=== PATIENT | female | born 1955 | race African-American/Black ===

== ENCOUNTER 2017-06-01 15:05 | Emergency (ER) | payer MEDICAID ==
[~2017-06-01 15:05] MED LIST: APIX5TAB PO; BUME1TAB PO; CALC0.25 PO; CARV25TA PO; CHOL1CAP13 PO; CLON0.1T PO; CLON0.2T PO; FURO40TA PO; HYDR-3799 PO; ISOS30TA3 PO; LANTINJ SQ; LEVO112T2 PO; LIDO1PAD52 TOPICAL; NITR1SUB3 SL; NOVOINJ3 SQ; PRAV80TA2 PO; RENATAB6 PO
[2017-06-01 15:07] VITALS: BP 211/100; PULSE 75; RESP 20; TEMP 98.6; O2SAT 96
--- NOTE | 2017-06-01 15:19 | PD ---
Physical Exam Time Seen by Provider: 15:18 Narrative 61 y/o female here for evaluation of nausea, vomiting, fatigue for 3 days. She has also had a pruritic rash on the lower back for one day. Vital signs reviewed. Seen at triage desk. Awaiting bed placement. Data Data Last Documented VS Vital Signs Date Time Temp Pulse Resp B/P (MAP) Pulse Ox O2 Delivery O2 Flow Rate FiO2 06/01/17 15:07 98.6 75 20 211/100 (137) 96 Room Air [facility] Medical Record Reviewed: Yes Supervised Visit with BETSY: Niall Myers Jun 01, 2017 15:19
[2017-06-01 16:42] VITALS: RESP 16; O2SAT 98
[2017-06-01] MEDS ORDERED: SODIUM CHLORIDE 0.9% FLUSH 10 ML FLUSH IV FLUSH PRN (16:45)
--- NOTE | 2017-06-01 16:50 | PD ---
HPI Chief Complaint: GI Complaint Time Seen by Provider: 16:36 Travel History International Travel<30 days: No Contact w/Intl Traveler<30days: No Traveled to known affect area: No History of Present Illness HPI 61-year-old female with history of previous stroke, hypertension, diabetes, presents to the ER today for 3 days history of feeling more tired than usual, nausea vomiting, and lower back pains, has noticed a rash to her right flank area going down her right leg. She states that she thinks the rash is making her feel worse. She denies any diarrhea or any other symptoms. Modifying Factors: None Associated Signs & Symptoms: Fatigue, nausea, lower back discomfort, right flank rash Risk Factors: None PFSH Past Medical History Arthritis: Yes Cardiac Catheterization: Yes Cardiovascular Problems: Yes (HTN) Diabetes: Yes Patient Takes Glucophage: No Diminished Hearing: No Hypertension: Yes Past Surgical History Section: Yes Genitourinary Surgery: Yes Social History Alcohol Use: No Tobacco Use: No Substance Use: No Allergies-Medications (Allergen,Severity, Reaction): Coded Allergies: ibuprofen (Verified Allergy, Severe, 06/01/17) aspirin (Verified Allergy, Unknown, 06/01/17) Reported Meds & Prescriptions Reported Meds & Active Scripts Active Bumetanide 1 Mg Tab 1 Mg PO BID Clonidine (Clonidine HCl) 0.2 Mg Tab 0.2 Mg PO BID Reported Calcitriol 0.25 Mcg Cap 0.25 Mcg PO DAILY Vitamin D3 Maximum Strength (Cholecalciferol) 5,000 Unit Cap 5,000 Units PO DAILY Isosorbide Mononitrate ER (Isosorbide Mononitrate) 30 Mg Capri 30 Mg PO DAILY Sherron-Joe Rx (B-Complex W/ C & Folic Acid) 1 Tab 1 Tab PO DAILY Hydralazine HCl 25 Mg Tablet 25 Mg PO BID Nitroglycerin SL (Nitroglycerin) 0.4 Mg Subl 0.4 Mg SL DIRECTED PRN ONE TABLET UNDER THE TONGUE NEEDED FOR CHEST PAIN, MAY REPEAT EVERY FIVE MINUTES FOR A TOTAL OF 3 DOSES OR CALL 911 IF NO RELIEF Bumetanide 1 Mg Tab 1 Mg PO DAILY Furosemide 40 Mg Tab 40 Mg PO DAILY Lidocaine Patch 12 HR (Lidocaine) 5 % Patch 1 Patch TOPICAL DAILY Remove patch after 12 hours Novolog Flexpen Inj (Insulin Aspart) 300 Unit/3 Ml Pen 1 Units SQ Pravastatin 80 Mg Tab 80 Mg PO DAILY Levothyroxine (Levothyroxine Sodium) 112 Mcg Tab 112 Mcg PO DAILY Eliquis (Apixaban) 5 Mg Tab 5 Mg PO BID Carvedilol 25 Mg Tab 12.5 Mg PO TID Clonidine (Clonidine HCl) 0.1 Mg Tab 0.1 Mg PO BID Lantus Solostar Pen Inj (Insulin Glargine) 300 Unit/3 Ml Pen 15 Units SQ HS Review of Systems Except as stated in HPI: all other systems reviewed are Neg Physical Exam Narrative GENERAL: Well-developed elderly female patient currently in mild distress. Awake and oriented 3. SKIN: Focused skin assessment warm/dry. There is a notable erythematous vesicular rash to the right flank area around the dermatomal area of L2 going down the right anterior thigh. HEAD: Atraumatic. Normocephalic. EYES: Pupils equal and round. No scleral icterus. No injection or drainage. ENT: No nasal bleeding or discharge. Mucous membranes pink and moist. NECK: Trachea midline. No JVD. CARDIOVASCULAR: Regular rate and rhythm. No murmur appreciated. RESPIRATORY: No accessory muscle use. Clear to auscultation. Breath sounds equal bilaterally. GASTROINTESTINAL: Abdomen soft, non-tender, nondistended. Hepatic and splenic margins not palpable. MUSCULOSKELETAL: No obvious deformities. No clubbing. No cyanosis. No edema. NEUROLOGICAL: Awake and alert. No obvious cranial nerve deficits. Motor grossly within normal limits. Normal speech. PSYCHIATRIC: Appropriate mood and affect; insight and judgment normal. Data Data Last Documented VS Vital Signs Date Time Temp Pulse Resp B/P (MAP) Pulse Ox O2 Delivery O2 Flow Rate FiO2 06/01/17 16:42 16 98 Room Air 06/01/17 15:07 98.6 75 Orders Orders Complete Blood Count With Diff (06/01/17 16:36) Comprehensive Metabolic Panel (06/01/17 16:36) Lipase (06/01/17 16:36) Urinalysis - C+S If Indicated (06/01/17 16:36) Iv Access Insert/Monitor (06/01/17 16:36) Ecg Monitoring (06/01/17 16:36) Oximetry (06/01/17 16:36) Sodium Chloride 0.9% Flush (Ns Flush) (06/01/17 16:45) Chest, Single Ap (06/01/17 17:48) Furosemide Inj (Lasix Inj) (06/01/17 18:45) Clonidine (Catapres) (06/01/17 19:00) Acetamin-Hydrocod 325-5 Mg ([place] 5-325 (06/01/17 19:00) Labs Laboratory Tests Test 06/01/17 16:50 White Blood Count 4.8 TH/MM3 Red Blood Count 3.46 MIL/MM3 Hemoglobin 10.2 GM/DL Hematocrit 31.7 % Mean Corpuscular Volume 91.6 FL Mean Corpuscular Hemoglobin 29.5 PG Mean Corpuscular Hemoglobin Concent 32.2 % Red Cell Distribution Width 14.6 % Platelet Count 126 TH/MM3 Mean Platelet Volume 10.6 FL Neutrophils (%) (Auto) 70.2 % Lymphocytes (%) (Auto) 14.5 % Monocytes (%) (Auto) 12.3 % Eosinophils (%) (Auto) 2.2 % Basophils (%) (Auto) 0.8 % Neutrophils # (Auto) 3.4 TH/MM3 Lymphocytes # (Auto) 0.7 TH/MM3 Monocytes # (Auto) 0.6 TH/MM3 Eosinophils # (Auto) 0.1 TH/MM3 Basophils # (Auto) 0.0 TH/MM3 CBC Comment DIFF FINAL Differential Comment Blood Urea Nitrogen 35 MG/DL Creatinine 2.90 MG/DL Random Glucose 144 MG/DL Total Protein 7.2 GM/DL Albumin 3.3 GM/DL Calcium Level 9.0 MG/DL Alkaline Phosphatase 87 U/L Aspartate Amino Transf (AST/SGOT) 27 U/L Alanine Aminotransferase (ALT/SGPT) 22 U/L Total Bilirubin 0.5 MG/DL Sodium Level 138 MEQ/L Potassium Level 4.0 MEQ/L Chloride Level 104 MEQ/L Carbon Dioxide Level 28.0 MEQ/L Anion Gap 6 MEQ/L Estimat Glomerular Filtration Rate 20 ML/MIN Lipase 133 U/L MDM Medical Decision Making Medical Screen Exam Complete: Yes Emergency Medical Condition: Yes Medical Record Reviewed: Yes Interpretation(s) Laboratory Tests Test 06/01/17 16:50 Red Blood Count 3.46 MIL/MM3 (4.00-5.30) Hemoglobin 10.2 GM/DL (11.6-15.3) Hematocrit 31.7 % (35.0-46.0) Platelet Count 126 TH/MM3 (150-450) Neutrophils (%) (Auto) 70.2 % (16.0-70.0) Monocytes (%) (Auto) 12.3 % (0.0-8.0) Lymphocytes # (Auto) 0.7 TH/MM3 (1.0-4.8) Blood Urea Nitrogen 35 MG/DL (7-18) Creatinine 2.90 MG/DL (0.50-1.00) Random Glucose 144 MG/DL (74-106) Albumin 3.3 GM/DL (3.4-5.0) Estimat Glomerular Filtration Rate 20 ML/MIN (>89) Last 24 hours Impressions Chest X-Ray 06/01/17 6698 Signed Impressions: Service Date/Time: Thursday, June 01, 2017 17:52 - CONCLUSION: Slight failure. Jong Corbett MD Differential Diagnosis Fatigue, nausea, vomiting, lower back discomfort, rash: Viral syndrome versus zoster versus dehydration versus metabolic issues Narrative Course Exam reveals rash that appears to be zoster. Symptoms are likely secondary to zoster. Her blood pressure is quite high the patient is due for her blood pressure medications and patient was given clonidine time. She. She is also due for Bumex she is due for her diuretics and Lasix was also given in the ER. My plan would be to release her once her blood pressure medications have taken effect and treat her for her zoster. Follow-up with primary care doctor. Return for any worsening in symptoms as necessary. The plan has been discussed with her and she states understanding. Diagnosis Primary Impression: Shingles Additional Impressions: Chronic hypertension CHF (congestive heart failure) Med/Other Pt SpecificInfo: Prescription(s) given Scripts Hydrocodone-Acetaminophen (Lortab) 5-325 Mg Tab 1 TAB PO Q6H Y for PAIN, #15 TAB 0 Refills Prov: Henny Davies MD 06/01/17 Acyclovir (Acyclovir) 800 Mg Tab 800 MG PO 5 TIMES A DAY for Mgmt Viral Infection for 7 Days, TAB 0 Refills Prov: Henny Davies MD 06/01/17 Disposition: 01 DISCHARGE HOME Condition: Stable Henny Davies MD Jun 01, 2017 16:50
[2017-06-01 17:16] LABS: AUTOMATED NEUTROPHIL # 3.4 TH/MM3 (1.8-7.7); BASOPHIL % 0.8 % (0.0-2.0); EOSINOPHIL # 0.1 TH/MM3 (0-0.4); EOSINOPHIL % 2.2 % (0.0-4.0); HEMATOCRIT 31.7 % (35.0-46.0); HEMO FLAGS DIFF FINAL; LYMPH % 14.5 % (9.0-44.0); LYMPHOCYTE # 0.7 TH/MM3 (1.0-4.8); MEAN CELL VOLUME 91.6 FL (80.0-100.0); MEAN CORPUSCULAR HEMOGLOBIN 29.5 PG (27.0-34.0); MEAN CORPUSCULAR HGB CONC 32.2 % (32.0-36.0); MONO % 12.3 % (0.0-8.0); NEUT % 70.2 % (16.0-70.0); PLATELET COUNT 126 TH/MM3 (150-450); RED BLOOD COUNT 3.46 MIL/MM3 (4.00-5.30); RED CELL DISTRIBUTION WIDTH 14.6 % (11.6-17.2); WHITE BLOOD COUNT 4.8 TH/MM3 (4.0-11.0)
[2017-06-01 17:36] LABS: ALKALINE PHOSPHATASE 87 U/L (45-117); TOTAL BILIRUBIN ADULT 0.5 MG/DL (0.2-1.0)
[2017-06-01 17:42] LABS: ALT (GPT) 22 U/L (10-53); ANION GAP 6 MEQ/L (5-15); AST (GOT) 27 U/L (15-37); BLOOD UREA NITROGEN 35 MG/DL (7-18); CHLORIDE 104 MEQ/L (98-107); GLOMERULAR FILTRATION RATE 20 ML/MIN (>89); SODIUM (NA) 138 MEQ/L (136-145)
--- NOTE | 2017-06-01 18:17 | RADRPT ---
EXAM DATE/TIME: 06/01/2017 17:52 [facility] COMPARISON: No previous studies available for comparison. INDICATIONS : Cough and chest pain. MEDICAL HISTORY : Myocardial infarction. Stroke. Hypertension. Diabetes mellitus type II. Cardiovascular disease. SURGICAL HISTORY : None. ENCOUNTER: Initial ACUITY: 2 days PAIN SCORE: 9/10 LOCATION: Bilateral chest FINDINGS: Moderate cardiomegaly again noted. There is vascular congestion/trace edema. Tiny bilateral pleural e ffusions are possible. No large effusion seen. No pneumothorax. CONCLUSION: Slight failure. Jong Corbett MD on June 01, 2017 at 18:15 Board Certified Radiologist. This report was verified electronically.
[2017-06-01] MEDS ORDERED: FUROSEMIDE 40 MG/4 ML VIAL IV PUSH ONE (18:45)
[2017-06-01] MEDS ORDERED: cloNIDine HCL 0.2 MG TAB PO ONE (19:00)
[2017-06-01] MEDS ORDERED: ACETAMINOPHEN/HYDROcodone 325 MG/5 MG TAB PO ONE (19:00)
[2017-06-01] MEDS ORDERED: HYDR-3533 PO (19:10)
[2017-06-01] MEDS ORDERED: ACYC800T PO (19:10)
[2017-06-01 21:10] VITALS: BP 190/80
== END 2017-06-01 21:11 | disposition home or self-care (01) ==
LOC: NEPE 15:05
DX: B02.9 Zoster without complications (principal); I50.9 Heart failure, unspecified; I10 Essential (primary) hypertension; E11.9 Type 2 diabetes mellitus without complications
CPT/HCPCS: 71010; 80053; 83690; 85025; 96374; 99284; J1940

== ENCOUNTER 2017-07-02 01:36 | Inpatient (IN) | payer MEDICAID ==
[2017-07-02] VITALS (20 sets, daily range): BP systolic 98–176; BP diastolic 54–87; PULSE 58–79; RESP 11–24; TEMP 97.5–98.4; O2SAT 97–100
[~2017-07-02] VITALS: Ht 167.6 cm; Wt 78.4 kg
[~2017-07-02 01:36] MED LIST changes: +HYDR-3533 PO
[2017-07-02] MEDS ORDERED: MAGNESIUM HYDROXIDE SUSP 30 ML CUP PO PRN (04:30)
[2017-07-02] MEDS ORDERED: SENNOSIDES 8.6 MG TAB PO PRN (04:30)
[2017-07-02] MEDS ORDERED: ZOLPIDEM TARTRATE 5 MG TAB PO PRN (04:30)
[2017-07-02] MEDS ORDERED: MISCELLANEOUS NURSING INFORMATION XX SCH (04:30)
[2017-07-02] MEDS ORDERED: CHLORHEXIDINE GLUCONATE 2 % 1 PACK (2 CLOTHS) TOP PRN (04:30)
[2017-07-02] MEDS ORDERED: ONDANSETRON HCL 4 MG/2 ML VIAL IV PUSH PRN (04:30)
[2017-07-02] MEDS ORDERED: BISACODYL 10 MG SUPP RECTAL PRN (04:30)
[2017-07-02] MEDS ORDERED: RESP: ALBUTEROL 2.5 MG/IPRATROPIUM 0.5 MG NEB (PRN) INH (04:30)
[2017-07-02] MEDS ORDERED: SODIUM CHLORIDE 0.9% FLUSH 10 ML FLUSH IV FLUSH PRN (04:30)
[2017-07-02] MEDS ORDERED: DEXTROSE 50% IN WATER 50 ML VIAL(D50) IV PUSH PRN (04:30)
[2017-07-02] MEDS ORDERED: LACTULOSE SYRUP 20 GM/30 ML CUP PO PRN (04:30)
[2017-07-02] MEDS ORDERED: ACETAMINOPHEN 325 MG TAB PO PRN (04:30)
[2017-07-02] MEDS ORDERED: GLUCAGON 1 MG/ML VIAL OTHER PRN (04:30)
--- NOTE | 2017-07-02 04:35 | HHI.HP ---
[facility] Service Critical Care Medicine Primary Care Physician Non-Staff Admission Diagnosis Diagnosis: Travel History International Travel<30 Days: No Contact w/Intl Traveler <30 Da: No Traveled to Known Affected Are: No History of Present Illness 62 year-old female history of hypertension, CAD, diabetes, kidney disease, DVTs , CHF presents for evaluation of worsening shortness of breath over the last 4 days. She feels significantly short of breath in with a minimum activities. She she has also been unable to lie flat. Her ankles have become more swollen. 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 Per the patient Renal function has been "doing well." She denies any fever or chills. She denies any recent illnesses. Denies any nausea or vomiting. Patient has no pain. She has no other symptoms to report. Substance Use: No Review of Systems Constitutional: DENIES: Diaphoretic episodes, Fatigue, Fever, Weight gain, Weight loss, Chills, Dizziness, Change in appetite, Night Sweats Endocrine: DENIES: Abnorml menstrual pattern, Heat/cold intolerance, Polydipsia , Polyuria, Polyphagia Eyes: DENIES: Blurred vision, Diplopia, Eye inflammation, Eye pain, Vision loss , Photosensitivity, Double Vision Ears, nose, mouth, throat: DENIES: Tinnitus, Hearing loss, Vertigo, Nasal discharge, Oral lesions, Throat pain, Hoarseness, Ear Pain, Running Nose, Epistaxis, Sinus Pain, Toothache, Odynophagia Respiratory: COMPLAINS OF: Shortness of breath, DENIES: Apneas, Cough, Snoring , Wheezing, Hemoptysis, Sputum production Cardiovascular: COMPLAINS OF: Dyspnea on Exertion, PND, Lower Extremity Edema, Orthopnea, DENIES: Chest pain, Palpitations, Syncope, Claudication Gastrointestinal: DENIES: Abdominal pain, Black stools, Bloody stools, Constipation, Diarrhea, Nausea, Vomiting, Difficulty Swallowing, Anorexia Genitourinary: DENIES: Abnormal vaginal bleeding, Dysmenorrhea, Dyspareunia, Sexual dysfunction, Urinary frequency, Urinary incontinence, Urgency, Hematuria , Dysuria, Nocturia, Vaginal discharge Musculoskeletal: DENIES: Joint pain, Muscle aches, Stiffness, Joint Swelling, Back pain, Neck pain Integumentary: DENIES: Abnormal pigmentation, Pruritus, Rash, Nail changes, Breast masses, Breast skin changes, Nipple discharge Hematologic/lymphatic: DENIES: Bruising, Lymphadenopathy Immunologic/allergic: DENIES: Eczema, Urticaria Neurologic: DENIES: Abnormal gait, Headache, Localized weakness, Paresthesias, Seizures, Speech Problems, Tremor, Poor Balance Psychiatric: DENIES: Anxiety, Confusion, Mood changes, Depression, Hallucinations, Agitation, Suicidal Ideation, Homicidal Ideation, Delusions Past Family Social History Allergies: Coded Allergies: ibuprofen (Verified Allergy, Severe, 07/01/17) aspirin (Verified Allergy, Unknown, 07/01/17) Past Medical History Arthritis Cardiac Catheterization Diabetes Hypertension Past Surgical History Section: Yes Genitourinary Surgery: Yes Reported Medications Reported Meds & Active Scripts Active Lortab (Hydrocodone-Acetaminophen) 5-325 Mg Tab 1 Tab PO Q6H PRN Bumetanide 1 Mg Tab 1 Mg PO BID Clonidine (Clonidine HCl) 0.2 Mg Tab 0.2 Mg PO BID Reported Calcitriol 0.25 Mcg Cap 0.25 Mcg PO DAILY Vitamin D3 Maximum Strength (Cholecalciferol) 5,000 Unit Cap 5,000 Units PO DAILY Isosorbide Mononitrate ER (Isosorbide Mononitrate) 30 Mg Capri 30 Mg PO DAILY Sherron-Joe Rx (B-Complex W/ C & Folic Acid) 1 Tab 1 Tab PO DAILY Hydralazine HCl 25 Mg Tablet 25 Mg PO BID Nitroglycerin SL (Nitroglycerin) 0.4 Mg Subl 0.4 Mg SL DIRECTED PRN ONE TABLET UNDER THE TONGUE NEEDED FOR CHEST PAIN, MAY REPEAT EVERY FIVE MINUTES FOR A TOTAL OF 3 DOSES OR CALL 911 IF NO RELIEF Bumetanide 1 Mg Tab 1 Mg PO DAILY Furosemide 40 Mg Tab 40 Mg PO DAILY Lidocaine Patch 12 HR (Lidocaine) 5 % Patch 1 Patch TOPICAL DAILY Remove patch after 12 hours Novolog Flexpen Inj (Insulin Aspart) 300 Unit/3 Ml Pen 1 Units SQ Pravastatin 80 Mg Tab 80 Mg PO DAILY Levothyroxine (Levothyroxine Sodium) 112 Mcg Tab 112 Mcg PO DAILY Eliquis (Apixaban) 5 Mg Tab 5 Mg PO BID Carvedilol 25 Mg Tab 12.5 Mg PO TID Clonidine (Clonidine HCl) 0.1 Mg Tab 0.1 Mg PO BID Lantus Solostar Pen Inj (Insulin Glargine) 300 Unit/3 Ml Pen 15 Units SQ HS Active Ordered Medications Current Medications Medications (Trade) Dose Ordered Sig/Saad Route PRN Reason Start Time Stop Time Status Last Admin Dose Admin Apixaban (Eliquis) 5 mg BID PO 07/02/17 09:00 Bumetanide (Bumetanide) 1 mg BID PO 07/02/17 09:00 Carvedilol (Coreg) 12.5 mg TID PO 07/02/17 09:00 Clonidine (Catapres) 0.2 mg BID PO 07/02/17 09:00 Furosemide (Lasix) 40 mg DAILY PO 07/02/17 09:00 Hydralazine HCl (Apresoline) 25 mg BID PO 07/02/17 09:00 Isosorbide Mononitrate (Imdur) 30 mg DAILY@0700 PO 07/02/17 07:00 Levothyroxine Sodium (Synthroid) 112 mcg DAILY@0700 PO 07/02/17 07:00 Pravastatin Sodium (Pravachol) 80 mg DAILY PO 07/02/17 09:00 Insulin Detemir (Levemir Inj) 15 units HS SQ 07/02/17 21:00 Dextrose (D50w (Vial) Inj) 50 ml UNSCH PRN IV PUSH HYPOGLYCEMIA-SEE COMMENTS 07/02/17 04:30 Glucagon (Glucagon Inj) 1 mg UNSCH PRN OTHER HYPOGLYCEMIA-SEE COMMENTS 07/02/17 04:30 Insulin Human Regular (NovoLIN R SUPPLEMENTAL SCALE) 1 ACHS SLIDING SCALE SQ 07/02/17 08:00 Sodium Chloride (NS Flush) 2 ml UNSCH PRN IV FLUSH FLUSH AFTER USING IV ACCESS 07/02/17 04:30 UNV Sodium Chloride (NS Flush) 2 ml BID IV FLUSH 07/02/17 09:00 UNV Acetaminophen (Tylenol) 650 mg Q6H PRN PO PAIN 1-5 AND/OR FEVER >101F 07/02/17 04:30 UNV Oxycodone/ Acetaminophen (Percocet 5-325 Mg) 1 tab Q4H PRN PO PAIN SCALE 6 TO 10 07/02/17 04:30 UNV Famotidine (Pepcid Inj) 20 mg Q12HR IV PUSH 07/02/17 09:00 UNV Ondansetron HCl (Zofran Inj) 4 mg Q6H PRN IV PUSH NAUSEA OR VOMITING 07/02/17 04:30 UNV Zolpidem Tartrate (Ambien) 5 mg HS PRN PO INSOMNIA 07/02/17 04:30 Albuterol/ Ipratropium (Duoneb Neb) 1 ampule Q2HR NEB PRN INH WHEEZING 07/02/17 04:30 UNV Heparin Sodium (Porcine) (Heparin Inj) 5,000 units Q8H SQ 07/02/17 04:30 UNV Miscellaneous Information 1 Q361D XX 07/02/17 04:30 Chlorhexidine Gluconate (Chlorhexidine 2% Cloth) 3 pack Taper DAILY@04 TOP 07/03/17 04:00 06/29/18 03:59 Chlorhexidine Gluconate (Chlorhexidine 2% Cloth) 3 pack UNSCH PRN TOP HYGIENIC CARE 07/02/17 04:30 Senna/Docusate Sodium (Shi-Colace) 1 tab BID PO 07/02/17 09:00 UNV Magnesium Hydroxide (Milk Of Magnesia Liq) 30 ml Q12H PRN PO Mild constipation 07/02/17 04:30 UNV Sennosides (Senokot) 17.2 mg Q12H PRN PO Moderate constipation 07/02/17 04:30 UNV Bisacodyl (Dulcolax Supp) 10 mg DAILY PRN RECTAL SEVERE CONSITIPATION/ IF NPO 07/02/17 04:30 Lactulose (Lactulose Liq) 30 ml DAILY PRN PO SEVERE CONSITIPATION 07/02/17 04:30 UNV Family History No family history for coronary artery disease Social History Negative for tobacco, alcohol, or illicit drug abuse Physical Exam Physical Exam GENERAL: Well-nourished, well-developed patient. SKIN: Warm and dry. HEAD: Normocephalic. EYES: No scleral icterus. No injection or drainage. NECK: Supple, trachea midline. No JVD or lymphadenopathy. CARDIOVASCULAR: Regular rate and rhythm without murmurs, gallops, or rubs. RESPIRATORY: Breath sounds equal bilaterally. No accessory muscle use. GASTROINTESTINAL: Abdomen soft, non-tender, nondistended. MUSCULOSKELETAL: No cyanosis, 2+ pitting edema up to her knees. BACK: Nontender without obvious deformity. NEURO EXAM: GCS: M 6 V 5 E 4 Mental Status: The patient is alert and oriented to person, place, and time with normal speech. Cranial Nerves: Visual acuity intact bilaterally. Visual mccollum normal in all quadrants. Pupils are round, reactive to light. Extraocular movements are intact without ptosis. Hearing is normal bilaterally. Voice is normal. Tongue protrudes midline and moves symmetrically. Reflexes: Biceps, patellar, and Achilles are 2/4 bilaterally. No clonus. Laboratory Laboratory Tests Test 07/02/17 01:35 Caprini VTE Risk Assessment Caprini VTE Risk Assessment: Mod/High Risk (score >= 2) Caprini Risk Assessment Model Point Value = 1 Point Value = 2 Point Value = 3 Point Value = 5 Age 41-60 Minor surgery BMI > 25 kg/m2 Swollen legs Varicose veins or History of unexplained or recurrent spontaneous Oral contraceptives or hormone replacement Sepsis (< 1 month) Serious lung disease, including pneumonia (< 1 month) Abnormal pulmonary function Acute myocardial infarction Congestive heart failure (< 1 month) History of inflammatory bowel disease Medical patient at bed rest Age 61-74 Arthroscopic surgery Major open surgery (> 45 min) Laparoscopic surgery (> 45 min) Malignancy Confined to bed (> 72 hours) Immobilizing plaster cast Central venous access Age >= 75 History of VTE Family history of VTE Factor V Leiden Prothrombin [id number] Lupus anticoagulant Anticardiolipin antibodies Elevated serum homocysteine Heparin-induced thrombocytopenia Other congenital or acquired thrombophilia Stroke (< 1 month) Elective arthroplasty Hip, pelvis, or leg fracture Acute spinal cord injury (< 1 month) Prophylaxis Regimen Total Risk Factor Score Risk Level Prophylaxis Regimen 0-1 Low Early ambulation 2 Moderate Order ONE of the following: *Sequential Compression Device (SCD) *Heparin 5000 units SQ BID 3-4 Higher Order ONE of the following medications: *Heparin 5000 units SQ TID *Enoxaparin/Lovenox 40 mg SQ daily (WT < 150 kg, CrCl > 30 mL/min) *Enoxaparin/Lovenox 30 mg SQ daily (WT < 150 kg, CrCl > 10-29 mL/min) *Enoxaparin/Lovenox 30 mg SQ BID (WT < 150 kg, CrCl > 30 mL/min) AND/OR *Sequential Compression Device (SCD) 5 or more Highest Order ONE of the following medications: *Heparin 5000 units SQ TID (Preferred with Epidurals) *Enoxaparin/Lovenox 40 mg SQ daily (WT < 150 kg, CrCl > 30 mL/min) *Enoxaparin/Lovenox 30 mg SQ daily (WT < 150 kg, CrCl > 10-29 mL/min) *Enoxaparin/Lovenox 30 mg SQ BID (WT < 150 kg, CrCl > 30 mL/min) AND *Sequential Compression Device (SCD) Assessment and Plan Assessment and Plan Respiratory failure - Fluid overload - Diuresis - O2 nasal cannula - Repeat CXR a.m. Acute on chronic congestive heart failure - Repeat 2-D echo - Blood pressure control - Goal negative fluid balance Acute kidney injury - Strict I's and O's - Monitor creatinine and electrolytes while diuresing Diabetes mellitus - Insulin glargine - Insulin sliding scale Hypertension - Coreg - Hydralazine - Clonidine - Diuretics - Isosorbide History of DVTs - Continue Eliquis DVT GI prophylaxis - Teds SCDs - Subcutaneous heparin - Pepcid Critical Care: The total critical care time was 35 minutes. Time to perform other separately billable procedures was not included in the critical care time. Jay Fisher MD Jul 02, 2017 4:35 am
[2017-07-02] MEDS: LEVOTHYROXINE SODIUM 112 MCG TAB PO SCH (06:11)
[2017-07-02] MEDS: HEPARIN SODIUM - SQ 10,000 UNITS/ML VIAL SQ SCH ×3 (06:11→20:15)
[2017-07-02] MEDS: oxyCODONE/ACETAMINOPHEN 5 MG/325 MG TAB PO PRN ×2 (06:12→17:58)
[2017-07-02] MEDS: ISOSORBIDE MONONITRATE 30 MG TAB PO SCH (06:12)
[2017-07-02] MEDS: INSULIN NovoLIN REGULAR SUPPLEMENTAL SCALE SQ SCH ×4 (08:00→20:48)
[2017-07-02] MEDS ORDERED: APIXABAN 5 MG TABLET PO SCH (09:00)
[2017-07-02] MEDS: FAMOTIDINE 20 MG/2 ML VIAL IV PUSH SCH ×2 (09:26→20:14)
[2017-07-02] MEDS: CARVEDILOL 12.5 MG TAB PO SCH ×3 (09:27→17:59)
[2017-07-02] MEDS: PRAVASTATIN SOD 80 MG TAB PO SCH (09:27)
[2017-07-02] MEDS: DOCUSATE SODIUM 50 MG/SENNA 8.6 MG TAB PO SCH ×2 (09:27→20:14)
[2017-07-02] MEDS: cloNIDine HCL 0.2 MG TAB PO SCH ×2 (09:27→20:16)
[2017-07-02] MEDS: hydrALAZINE HCL 25 MG TAB PO SCH ×2 (09:27→20:16)
[2017-07-02] MEDS: FUROSEMIDE 40 MG TAB PO SCH (09:27)
[2017-07-02] MEDS: BUMETANIDE 1 MG TAB PO SCH ×2 (09:27→20:16)
[2017-07-02] MEDS: SODIUM CHLORIDE 0.9% FLUSH 10 ML FLUSH IV FLUSH SCH ×2 (09:28→20:14)
[2017-07-02 15:36] LABS: BICARBONATE 24.2 MEQ/L (21.0-32.0); POTASSIUM 3.6 MEQ/L (3.5-5.1)
[2017-07-02] MEDS: INSULIN DETEMIR 100 UNITS/ML VIAL SQ SCH (20:15)
--- NOTE | 2017-07-02 21:02 | ECHRPT ---
Indication: HEART FAILURE CONCLUSIONS Normal left ventricular size. Mild to moderate concentric left ventricular hypertrophy. The left ventricular systolic function is normal with an estimated ejection fraction in the range of 60-65%. Mild to moderate mitral valve regurgitation. Moderate mitral annular calcification. The estimated pulmonary arterial pressure is 83.6 mmHg. There is moderate tricuspid regurgitation. BP: 208 / 85 HR: Rhythm: Sinus MEASUREMENTS (Male / Female) Normal Values Technical Quality:Fair 2D ECHO LV Diastolic Diameter PLAX 4.9 cm 4.2 - 5.9 / 3.9 - 5.3 cm LV Systolic Diameter PLAX 3.7 cm IVS Diastolic Thickness 1.3 cm 0.6 - 1.0 / 0.6 - 0.9 cm LVPW Diastolic Thickness 1.3 cm 0.6 - 1.0 / 0.6 - 0.9 cm LV Relative Wall Thickness 0.5 LVOT Diameter 1.9 cm Aortic Root Diameter 3.2 cm LA Systolic Diameter LX 4.6 cm 3.0 - 4.0 / 2.7 - 3.8 cm M-MODE AV Cusp Separation MM 1.9 cm DOPPLER AV Peak Velocity 168.0 cm/s AV Peak Gradient 11.3 mmHg AV Mean Gradient 5.0 mmHg AV Velocity Time Integral 28.7 cm LVOT Peak Velocity 112.0 cm/s LVOT Peak Gradient 5.0 mmHg LVOT Velocity Time Integral 20.2 cm AV Area Cont Eq vti 2.0 cm AV Area Cont Eq pk 1.9 cm Mitral E Point Velocity 147.0 cm/s Mitral A Point Velocity 75.3 cm/s Mitral E to A Ratio 2.0 LV E' Lateral Velocity 4.9 cm/s Mitral E to LV E' Lateral Ratio 30.2 LV E' Septal Velocity 4.5 cm/s Mitral E to LV E' Septal Ratio 32.8 TR Peak Velocity 429.0 cm/s TR Peak Gradient 73.6 mmHg Right Atrial Pressure 10.0 mmHg Pulmonary Artery Systolic Pressu 83.6 mmHg Right Ventricular Systolic Press 83.6 mmHg PV Peak Velocity 67.7 cm/s PV Peak Gradient 1.8 mmHg FINDINGS LEFT VENTRICLE Normal left ventricular size. Mild concentric left ventricular hypertrophy. The left ventricular systolic function is normal with an estimated ejection fraction in the range of 60-65%. MITRAL VALVE Moderate mitral valve regurgitation. Moderate mitral annular calcification. TRICUSPID VALVE The estimated pulmonary arterial pressure is 83.6 mmHg. There is moderate tricuspid regurgitation. Jose Mcgregor MD (Electronically Signed) Final Date:02 July 2017 21:02
[2017-07-03] VITALS (17 sets, daily range): BP systolic 123–193; BP diastolic 61–97; PULSE 58–80; RESP 11–20; TEMP 98.1–98.9; O2SAT 95–100
[2017-07-03] MEDS: oxyCODONE/ACETAMINOPHEN 5 MG/325 MG TAB PO PRN ×2 (00:48→16:45)
[2017-07-03] MEDS: CHLORHEXIDINE GLUCONATE 2 % 1 PACK (2 CLOTHS) TOP SCH (04:00)
--- NOTE | 2017-07-03 04:22 | RADRPT ---
EXAM DATE/TIME: 07/03/2017 02:38 [facility] COMPARISON: CHEST PA & LAT, July 01, 2017, 22:42. INDICATIONS : Evaluate CHF MEDICAL HISTORY : Diabetes mellitus type II. Hypertension Carcinoma, anal. SURGICAL HISTORY : section. ENCOUNTER: Subsequent ACUITY: 2 days PAIN SCORE: 7/10 LOCATION: Bilateral chest FINDINGS: Mild to moderate cardiomegaly unchanged. Basilar predominant bilateral airspace opacities persist but are improved. No large effusion demonstrated. No pneumothorax. CONCLUSION: Decreasing failure, now mild. Jong Corbett MD on July 03, 2017 at 4:20 Board Certified Radiologist. This report was verified electronically.
[2017-07-03 04:30] LABS: AUTOMATED NEUTROPHIL # 3.4 TH/MM3 (1.8-7.7); BASOPHIL % 0.5 % (0.0-2.0); EOSINOPHIL # 0.2 TH/MM3 (0-0.4); EOSINOPHIL % 2.8 % (0.0-4.0); HEMATOCRIT 27.2 % (35.0-46.0); HEMO FLAGS DIFF FINAL; LYMPH % 28.4 % (9.0-44.0); LYMPHOCYTE # 1.7 TH/MM3 (1.0-4.8); MEAN CELL VOLUME 88.8 FL (80.0-100.0); MEAN CORPUSCULAR HEMOGLOBIN 29.9 PG (27.0-34.0); MEAN CORPUSCULAR HGB CONC 33.7 % (32.0-36.0); NEUT % 57.3 % (16.0-70.0); PLATELET COUNT 114 TH/MM3 (150-450); RED BLOOD COUNT 3.06 MIL/MM3 (4.00-5.30); RED CELL DISTRIBUTION WIDTH 14.9 % (11.6-17.2); WHITE BLOOD COUNT 5.9 TH/MM3 (4.0-11.0)
[2017-07-03 05:50] LABS: ALKALINE PHOSPHATASE 77 U/L (45-117); ALT (GPT) 19 U/L (10-53); ANION GAP 7 MEQ/L (5-15); AST (GOT) 19 U/L (15-37); BICARBONATE 26.4 MEQ/L (21.0-32.0); BLOOD UREA NITROGEN 50 MG/DL (7-18); CHLORIDE 107 MEQ/L (98-107); GLOMERULAR FILTRATION RATE 14 ML/MIN (>89); MAGNESIUM 2.2 MG/DL (1.5-2.5); POTASSIUM 3.7 MEQ/L (3.5-5.1); SODIUM (NA) 140 MEQ/L (136-145); TOTAL BILIRUBIN ADULT 0.4 MG/DL (0.2-1.0)
[2017-07-03] MEDS: ISOSORBIDE MONONITRATE 30 MG TAB PO SCH (05:59)
[2017-07-03] MEDS: LEVOTHYROXINE SODIUM 112 MCG TAB PO SCH (05:59)
[2017-07-03] MEDS: INSULIN NovoLIN REGULAR SUPPLEMENTAL SCALE SQ SCH ×4 (08:00→20:11)
[2017-07-03] MEDS: BUMETANIDE 1 MG TAB PO SCH ×2 (09:01→20:11)
[2017-07-03] MEDS: FUROSEMIDE 40 MG TAB PO SCH (09:01)
[2017-07-03] MEDS: cloNIDine HCL 0.2 MG TAB PO SCH ×2 (09:01→20:11)
[2017-07-03] MEDS: PRAVASTATIN SOD 80 MG TAB PO SCH (09:01)
[2017-07-03] MEDS: hydrALAZINE HCL 25 MG TAB PO SCH ×2 (09:02→20:11)
[2017-07-03] MEDS: APIXABAN 5 MG TABLET PO SCH ×2 (09:02→20:11)
[2017-07-03] MEDS: DOCUSATE SODIUM 50 MG/SENNA 8.6 MG TAB PO SCH ×2 (09:02→20:11)
[2017-07-03] MEDS: CARVEDILOL 12.5 MG TAB PO SCH ×3 (09:02→18:09)
[2017-07-03] MEDS: SODIUM CHLORIDE 0.9% FLUSH 10 ML FLUSH IV FLUSH SCH ×2 (09:13→20:10)
[2017-07-03] MEDS: FAMOTIDINE 20 MG/2 ML VIAL IV PUSH SCH ×2 (09:13→20:09)
--- NOTE | 2017-07-03 11:14 | HHI.PR ---
Subjective Remarks The patient was resting comfortably in bed. She said she did not have much of an appetite. She has been feeling weak. She says she had previously been on dialysis in the past. She has no intention on going back on dialysis. She says she does not add salt to her meals. She tries to watch her much water she drinks. Objective Vitals Vital Signs Date Time Temp Pulse Resp B/P (MAP) Pulse Ox O2 Delivery O2 Flow Rate FiO2 07/03/17 10:00 62 07/03/17 08:07 99 Nasal Cannula 2.00 07/03/17 08:00 98.2 65 11 158/79 (105) 99 07/03/17 08:00 65 07/03/17 07:00 69 07/03/17 06:00 74 07/03/17 04:00 75 07/03/17 04:00 98.6 75 20 193/97 (129) 98 07/03/17 02:00 80 07/03/17 00:00 98.3 62 15 148/70 (96) 98 07/03/17 00:00 62 07/02/17 23:00 63 18 120/58 (78) 98 07/02/17 23:00 63 07/02/17 22:00 63 07/02/17 22:00 63 24 159/77 (104) 98 07/02/17 21:00 63 12 123/62 (82) 99 07/02/17 20:00 58 07/02/17 20:00 98.4 58 12 166/77 (106) 100 07/02/17 19:00 98.4 67 12 134/68 (90) 100 07/02/17 18:58 18 07/02/17 18:00 97.9 64 18 162/81 (108) 100 07/02/17 18:00 64 07/02/17 17:00 97.8 63 14 160/82 (108) 100 07/02/17 16:00 59 07/02/17 16:00 97.8 59 11 120/59 (79) 100 07/02/17 15:00 97.9 60 17 125/61 (82) 100 07/02/17 15:00 60 07/02/17 14:00 97.8 68 17 141/64 (89) 100 07/02/17 14:00 68 07/02/17 13:00 97.9 59 19 126/62 (83) 100 07/02/17 12:00 60 07/02/17 12:00 97.9 60 12 98/54 (69) 99 07/02/17 11:00 98.0 60 13 112/55 (74) 98 I/O 07/02/17 07/02/17 07/02/17 07/03/17 07/03/17 07/03/17 07:00 15:00 23:00 07:00 15:00 23:00 Intake Total 798 ml 1150 ml 500 ml Output Total 2075 ml 375 ml 0 ml Balance -1277 ml 775 ml 500 ml Intake Oral 798 ml 1150 ml 500 ml Output Urine Total 2075 ml 375 ml Stool Total 0 ml 0 ml # Bowel Movements 0 Result Diagram: 07/03/17 0327 07/03/17 0327 Imaging Last Impressions Chest X-Ray 07/03/17 0000 Signed Impressions: Service Date/Time: Monday, July 03, 2017 02:38 - CONCLUSION: Decreasing failure, now mild. Jong Corbett MD Objective Remarks GENERAL: Well-nourished, well-developed patient. SKIN: Warm and dry. HEAD: Normocephalic. EYES: No scleral icterus. No injection or drainage. NECK: Supple, trachea midline. No JVD or lymphadenopathy. CARDIOVASCULAR: Regular rate and rhythm without murmurs, gallops, or rubs. RESPIRATORY: Breath sounds equal bilaterally. No accessory muscle use. GASTROINTESTINAL: Abdomen soft, non-tender, nondistended. MUSCULOSKELETAL: No cyanosis, 2+ pitting edema. BACK: Nontender without obvious deformity. NEURO: No gross deficits. PSYCH: Mood and affect appropriate. Medications and IVs Current Medications Medications (Trade) Dose Ordered Sig/Saad Route Start Time Stop Time Status Last Admin (Bumetanide) 1 mg BID PO 07/02/17 09:00 07/03/17 09:01 (Coreg) 12.5 mg TID PO 07/02/17 09:00 07/03/17 09:02 (Catapres) 0.2 mg BID PO 07/02/17 09:00 07/03/17 09:01 (Lasix) 40 mg DAILY PO 07/02/17 09:00 07/03/17 09:01 (Apresoline) 25 mg BID PO 07/02/17 09:00 07/03/17 09:02 (Imdur) 30 mg DAILY@0700 PO 07/02/17 07:00 07/03/17 05:59 (Synthroid) 112 mcg DAILY@0700 PO 07/02/17 07:00 07/03/17 05:59 (Pravachol) 80 mg DAILY PO 07/02/17 09:00 07/03/17 09:01 (Levemir Inj) 15 units HS SQ 07/02/17 21:00 07/02/17 20:15 (D50w (Vial) Inj) 50 ml UNSCH PRN IV PUSH 07/02/17 04:30 (Glucagon Inj) 1 mg UNSCH PRN OTHER 07/02/17 04:30 (NovoLIN R SUPPLEMENTAL SCALE) 1 ACHS SLIDING SCALE SQ 07/02/17 08:00 07/02/17 17:00 (NS Flush) 2 ml UNSCH PRN IV FLUSH 07/02/17 04:30 (NS Flush) 2 ml BID IV FLUSH 07/02/17 09:00 07/03/17 09:13 (Tylenol) 650 mg Q6H PRN PO 07/02/17 04:30 (Percocet 5-325 Mg) 1 tab Q4H PRN PO 07/02/17 04:30 07/03/17 00:48 (Pepcid Inj) 20 mg Q12HR IV PUSH 07/02/17 09:00 07/03/17 09:13 (Zofran Inj) 4 mg Q6H PRN IV PUSH 07/02/17 04:30 (Ambien) 5 mg HS PRN PO 07/02/17 04:30 07/03/17 00:47 (Duoneb Neb) 1 ampule Q2HR NEB PRN INH 07/02/17 04:30 Miscellaneous Information 1 Q361D XX 07/02/17 04:30 (Chlorhexidine 2% Cloth) 3 pack Taper DAILY@04 TOP 07/03/17 04:00 06/29/18 03:59 07/03/17 04:00 (Chlorhexidine 2% Cloth) 3 pack UNSCH PRN TOP 07/02/17 04:30 (Shi-Colace) 1 tab BID PO 07/02/17 09:00 07/03/17 09:02 (Milk Of Magnesia Liq) 30 ml Q12H PRN PO 07/02/17 04:30 (Senokot) 17.2 mg Q12H PRN PO 07/02/17 04:30 (Dulcolax Supp) 10 mg DAILY PRN RECTAL 07/02/17 04:30 (Lactulose Liq) 30 ml DAILY PRN PO 07/02/17 04:30 (Eliquis) 5 mg BID PO 07/03/17 09:00 07/03/17 09:02 A/P Assessment and Plan Respiratory failure Suspect s/t fluid overload from renal failure. BNP elevated. EF 60-65%, no diastolic dysfunction noted on echo. CXR with improvement. - continue PO diuresis. - oxygen and nebs as needed. - follow Is and Os. Acute on chronic renal failure The pt has been on dialysis before. - Strict I's and O's. - Monitor creatinine and electrolytes while diuresing. - nephrology consult requested. Diabetes mellitus Glucose well controlled. - Insulin glargine. - Insulin sliding scale. Hypertension Blood pressure fluctuates. - continue Coreg, Hydralazine, Clonidine, Diuretics and Isosorbide. History of DVTs On Eliquis. - Continue Eliquis. Anemia Likely s/t renal disease. - monitor. PPx: Eliquis Discharge Planning Awaiting nephrology Ajay Solares DO Jul 03, 2017 11:14
--- NOTE | 2017-07-03 15:17 | PD.CONS ---
HPI Consult Requested By Reason for Consult Chronic kidney disease. Primary Care Physician Non-Staff History of Present Illness This patient is a 62-year-old black female apparently with a history of chronic kidney disease stage IV based on previous laboratory results was followed by a recording studio setup worker over and [place], Dr. Solis. Patient was transported from the emergency room associated with this institution on the west side of [facility] and the patient's own recording studio setup worker does not come to this institution. According to the patient she saw her recording studio setup worker last week and amlodipine was discontinued secondary to lower extremity edema. Patient subsequently developed increasing shortness of breath presenting to this institution with radiological and clinical evidence of congestive heart failure. Renal indices have deteriorated further with a GFR now being below 15. On reviewing the record she appears to have heavy proteinuria prior to this presentation. She was in fact on dialysis in the past but was discontinued after there was some improvement in renal function. The patient indicated to me she has not been referred as yet for transplant evaluation. She also stated that she would not do dialysis again and the Lord will provide a kidney for her. She stated that she did not want to go back on dialysis and kept asking me how her kidneys could be "fixed". Review of Systems Constitutional: COMPLAINS OF: Fatigue, Weight gain, DENIES: Diaphoretic episodes, Fever, Weight loss, Chills, Dizziness, Change in appetite, Night Sweats Ears, nose, mouth, throat: DENIES: Vertigo, Hoarseness, Odynophagia Respiratory: COMPLAINS OF: Apneas, Shortness of breath, DENIES: Cough, Snoring , Wheezing, Hemoptysis, Sputum production Cardiovascular: COMPLAINS OF: Dyspnea on Exertion, Lower Extremity Edema, Orthopnea, DENIES: Chest pain, Palpitations, Syncope, PND, Claudication Gastrointestinal: DENIES: Abdominal pain, Black stools, Bloody stools, Constipation, Diarrhea, Nausea, Vomiting, Difficulty Swallowing, Anorexia Musculoskeletal: DENIES: Joint pain, Muscle aches, Stiffness, Joint Swelling, Back pain, Neck pain Past Family Social History Allergies: Coded Allergies: ibuprofen (Verified Allergy, Severe, 07/01/17) aspirin (Verified Allergy, Unknown, 07/01/17) Past Medical History Hypertension Coronary disease Diabetes mellitus His congestive heart failure Chronic kidney disease due to appears to have been stage IV recently. Recent GFR's ranging between 20 and 18. Proteinuria. Secondary hyperparathyroidism of renal disease suspected as patient on calcitriol. Past Surgical History section. Reported Medications Calcitriol 0.25 Mcg Cap 0.25 Mcg PO DAILY Vitamin D3 Maximum Strength (Cholecalciferol) 5,000 Unit Cap 5,000 Units PO DAILY Isosorbide Mononitrate ER (Isosorbide Mononitrate) 30 Mg Capri 30 Mg PO DAILY Sherron-Joe Rx (B-Complex W/ C & Folic Acid) 1 Tab 1 Tab PO DAILY Hydralazine HCl 25 Mg Tablet 25 Mg PO BID Nitroglycerin SL (Nitroglycerin) 0.4 Mg Subl 0.4 Mg SL DIRECTED PRN ONE TABLET UNDER THE TONGUE NEEDED FOR CHEST PAIN, MAY REPEAT EVERY FIVE MINUTES FOR A TOTAL OF 3 DOSES OR CALL 911 IF NO RELIEF Bumetanide 1 Mg Tab 1 Mg PO DAILY Furosemide 40 Mg Tab 40 Mg PO DAILY Lidocaine Patch 12 HR (Lidocaine) 5 % Patch 1 Patch TOPICAL DAILY Remove patch after 12 hours Novolog Flexpen Inj (Insulin Aspart) 300 Unit/3 Ml Pen 1 Units SQ Pravastatin 80 Mg Tab 80 Mg PO DAILY Levothyroxine (Levothyroxine Sodium) 112 Mcg Tab 112 Mcg PO DAILY Eliquis (Apixaban) 5 Mg Tab 5 Mg PO BID Carvedilol 25 Mg Tab 12.5 Mg PO TID Clonidine (Clonidine HCl) 0.1 Mg Tab 0.1 Mg PO BID Lantus Solostar Pen Inj (Insulin Glargine) 300 Unit/3 Ml Pen 15 Units SQ HS Active Ordered Medications Current Medications Apixaban (Eliquis) 5 mg BID PO ; Start 07/02/17 at 09:00; Stop 07/02/17 at 09: 00; Status DC Bumetanide (Bumetanide) 1 mg BID PO Last administered on 07/03/17 09:01; Start 07/02/17 at 09:00 Carvedilol (Coreg) 12.5 mg TID PO Last administered on 07/03/17 13:48; Start 07/02/17 at 09:00 Clonidine (Catapres) 0.2 mg BID PO Last administered on 07/03/17 09:01; Start 07/02/17 at 09:00 Furosemide (Lasix) 40 mg DAILY PO Last administered on 07/03/17 09:01; Start 07/02/17 at 09:00 Hydralazine HCl (Apresoline) 25 mg BID PO Last administered on 07/03/17 09:02 ; Start 07/02/17 at 09:00 Isosorbide Mononitrate (Imdur) 30 mg DAILY@0700 PO Last administered on 05:59; Start 07/02/17 at 07:00 Levothyroxine Sodium (Synthroid) 112 mcg DAILY@0700 PO Last administered on 05:59; Start 07/02/17 at 07:00 Pravastatin Sodium (Pravachol) 80 mg DAILY PO Last administered on 07/03/17 09:01; Start 07/02/17 at 09:00 Insulin Detemir (Levemir Inj) 15 units HS SQ Last administered on 07/02/17 20 :15; Start 07/02/17 at 21:00 Dextrose (D50w (Vial) Inj) 50 ml UNSCH PRN IV PUSH HYPOGLYCEMIA-SEE COMMENTS; Start 07/02/17 at 04:30 Glucagon (Glucagon Inj) 1 mg UNSCH PRN OTHER HYPOGLYCEMIA-SEE COMMENTS; Start 07/02/17 at 04:30 Insulin Human Regular (NovoLIN R SUPPLEMENTAL SCALE) 1 ACHS SLIDING SCALE SQ Last administered on 07/02/17 17:00; Start 07/02/17 at 08:00 Sodium Chloride (NS Flush) 2 ml UNSCH PRN IV FLUSH FLUSH AFTER USING IV ACCESS ; Start 07/02/17 at 04:30 Sodium Chloride (NS Flush) 2 ml BID IV FLUSH Last administered on 07/03/17 09 :13; Start 07/02/17 at 09:00 Acetaminophen (Tylenol) 650 mg Q6H PRN PO PAIN 1-5 AND/OR FEVER >101F; Start 07/02/17 at 04:30 Oxycodone/ Acetaminophen (Percocet 5-325 Mg) 1 tab Q4H PRN PO PAIN SCALE 6 TO 10 Last administered on 07/03/17 00:48; Start 07/02/17 at 04:30 Famotidine (Pepcid Inj) 20 mg Q12HR IV PUSH Last administered on 07/03/17 09: 13; Start 07/02/17 at 09:00 Ondansetron HCl (Zofran Inj) 4 mg Q6H PRN IV PUSH NAUSEA OR VOMITING; Start at 04:30 Zolpidem Tartrate (Ambien) 5 mg HS PRN PO INSOMNIA Last administered on 00:47; Start 07/02/17 at 04:30 Albuterol/ Ipratropium (Duoneb Neb) 1 ampule Q2HR NEB PRN INH WHEEZING; Start 07/02/17 at 04:30 Heparin Sodium (Porcine) (Heparin Inj) 5,000 units Q8H SQ Last administered on 07/02/17 20:15; Start 07/02/17 at 05:00; Stop 07/02/17 at 23:22; Status DC Miscellaneous Information 1 Q361D XX ; Start 07/02/17 at 04:30 Chlorhexidine Gluconate (Chlorhexidine 2% Cloth) 3 pack Taper DAILY@04 TOP Last administered on 07/03/17 04:00; Start 07/03/17 at 04:00; Stop 06/29/18 at 03:59 Chlorhexidine Gluconate (Chlorhexidine 2% Cloth) 3 pack UNSCH PRN TOP HYGIENIC CARE; Start 07/02/17 at 04:30 Senna/Docusate Sodium (Shi-Colace) 1 tab BID PO Last administered on 09:02; Start 07/02/17 at 09:00 Magnesium Hydroxide (Milk Of Magnesia Liq) 30 ml Q12H PRN PO Mild constipation ; Start 07/02/17 at 04:30 Sennosides (Senokot) 17.2 mg Q12H PRN PO Moderate constipation; Start at 04:30 Bisacodyl (Dulcolax Supp) 10 mg DAILY PRN RECTAL SEVERE CONSITIPATION/ IF NPO; Start 07/02/17 at 04:30 Lactulose (Lactulose Liq) 30 ml DAILY PRN PO SEVERE CONSITIPATION; Start 07/02 at 04:30 Apixaban (Eliquis) 5 mg BID PO Last administered on 07/03/17 09:02; Start at 09:00 Family History Diabetes. Social History Denies illicit drug use. Physical Exam Vital Signs Vital Signs Date Time Temp Pulse Resp B/P (MAP) Pulse Ox O2 Delivery O2 Flow Rate FiO2 07/03/17 12:00 66 10/29/17 12:00 98.1 66 14 123/61 (81) 100 07/03/17 10:00 62 07/03/17 08:07 99 Nasal Cannula 2.00 07/03/17 08:00 98.2 65 11 158/79 (105) 99 07/03/17 08:00 65 07/03/17 07:00 69 07/03/17 06:00 74 07/03/17 04:00 75 07/03/17 04:00 98.6 75 20 193/97 (129) 98 07/03/17 02:00 80 07/03/17 00:00 98.3 62 15 148/70 (96) 98 07/03/17 00:00 62 07/02/17 23:00 63 18 120/58 (78) 98 07/02/17 23:00 63 07/02/17 22:00 63 07/02/17 22:00 63 24 159/77 (104) 98 07/02/17 21:00 63 12 123/62 (82) 99 07/02/17 20:00 58 07/02/17 20:00 98.4 58 12 166/77 (106) 100 07/02/17 19:00 98.4 67 12 134/68 (90) 100 07/02/17 18:58 18 07/02/17 18:00 97.9 64 18 162/81 (108) 100 07/02/17 18:00 64 07/02/17 17:00 97.8 63 14 160/82 (108) 100 07/02/17 16:00 59 07/02/17 16:00 97.8 59 11 120/59 (79) 100 07/02/17 15:00 97.9 60 17 125/61 (82) 100 07/02/17 15:00 60 Physical Exam GENERAL: Patient is sitting in a chair not in respiratory distress at rest. SKIN: Warm and dry. HEAD: Normocephalic. EYES: No scleral icterus. No injection or drainage. NECK: Supple, trachea midline. No JVD or lymphadenopathy. CARDIOVASCULAR: Regular rate and rhythm without murmurs, gallops, or rubs. RESPIRATORY: Breath sounds equal bilaterally. No accessory muscle use. Few bibasilar rales. GASTROINTESTINAL: Abdomen soft, non-tender, nondistended. MUSCULOSKELETAL: No cyanosis, 2+ pitting edema extending to the knees bilaterally. BACK: Nontender without obvious deformity. No CVA tenderness. Laboratory Laboratory Tests Test 07/03/17 03:27 White Blood Count 5.9 Red Blood Count 3.06 Hemoglobin 9.2 Hematocrit 27.2 Mean Corpuscular Volume 88.8 Mean Corpuscular Hemoglobin 29.9 Mean Corpuscular Hemoglobin Concent 33.7 Red Cell Distribution Width 14.9 Platelet Count 114 Mean Platelet Volume 11.1 Neutrophils (%) (Auto) 57.3 Lymphocytes (%) (Auto) 28.4 Monocytes (%) (Auto) 11.0 Eosinophils (%) (Auto) 2.8 Basophils (%) (Auto) 0.5 Neutrophils # (Auto) 3.4 Lymphocytes # (Auto) 1.7 Monocytes # (Auto) 0.6 Eosinophils # (Auto) 0.2 Basophils # (Auto) 0.0 CBC Comment DIFF FINAL Differential Comment Hematology Comments Blood Urea Nitrogen 50 Creatinine 3.97 Random Glucose 150 Total Protein 5.6 Albumin 2.1 Calcium Level 8.3 Phosphorus Level 3.1 Magnesium Level 2.2 Alkaline Phosphatase 77 Aspartate Amino Transf (AST/SGOT) 19 Alanine Aminotransferase (ALT/SGPT) 19 Total Bilirubin 0.4 Sodium Level 140 Potassium Level 3.7 Chloride Level 107 Carbon Dioxide Level 26.4 Anion Gap 7 Estimat Glomerular Filtration Rate 14 B-Type Natriuretic Peptide 558 Result Diagram: 07/03/17 0327 07/03/17 0327 Imaging Last 48 hours Impressions Chest X-Ray 07/03/17 0000 Signed Impressions: Service Date/Time: Monday, July 03, 2017 02:38 - CONCLUSION: Decreasing failure, now mild. Jong Corbett MD Assessment and Plan Problem List: (1) CKD (chronic kidney disease) stage 5, GFR less than 15 ml/min ICD Codes: N18.5 - Chronic kidney disease, stage 5 Status: Chronic Plan: Suspect patient has progressive CKD stage V given her severely impaired renal function recently this remains to be determined. There may have been some deterioration related to cardiac decompensation. I discussed with the patient severity of her renal insufficiency and indicated to her that she may require dialytic support in the future. The patient initially indicated to me that she would never do dialysis and the Lord will provide her with a kidney. On questioning the patient however she has not yet been referred to a transplant clinic and was unaware that such referral would be required. She also repeatedly asked me if there was something acted due to "fix her kidneys". I advised her that this is my first encounter with her but based on previous recent laboratory studies in the current severity of her renal insufficiency that would appear that she has progressive CKD related to hypertension diabetic nephropathy. She was advised that we could try to slow progression but we could not reverse established chronic kidney disease. She is advised that if she is interested in a kidney transplant she should consider dialysis as a bridging modality to her goal. I advised her to discuss options post discharge with Dr. Solis her outpatient recording studio setup worker to whom care will be resumed with post discharge. I advised her that I will provide care at this institution only for the present admission. Discontinue furosemide and streamline her diuretics as would be adjusted medication to continue the patient on bumetanide and furosemide at the same time. I will add metolazone to bumetanide to try and improve diuresis as an outpatient. Continue to monitor renal indices and hopefully dialysis can be avoided during this admission. I also suggested that she try to seek inpatient care at an institution where her own recording studio setup worker is available for continuity of care. Medications should be adjusted for the patient's estimated GFR if clinically indicated. Avoid agents with significant potential for nephrotoxicity possible including NSAIDs for analgesia, iodine contrast agents. Gadolinium is contraindicated if the GFR is below 30. (2) Diabetic nephropathy with proteinuria ICD Codes: E11.21 - Type 2 diabetes mellitus with diabetic nephropathy Plan: Protein/creatinine ratio to quantitate proteinuria. Abram inhibitors and angiotensin receptor blockers have been shown status is slow progression of CKD in the setting of proteinuria. Uncertain if this has been attempted in this patient previously. Decision regarding initiating such therapy will however be deferred to her outpatient recording studio setup worker who knows the patient better than myself. (3) Benign hypertension with chronic kidney disease, stage V ICD Codes: I12.0 - Hypertensive chronic kidney disease with stage 5 chronic kidney disease or end stage renal disease; N18.5 - Chronic kidney disease, stage 5 Plan: Continues to monitor and adjust hypertensive regimen as indicated. (4) Anemia in chronic kidney disease ICD Codes: N18.9 - Chronic kidney disease, unspecified; D63.1 - Anemia in chronic kidney disease Plan: Check iron saturation and ferritin. Patient may be a candidate for erythropoietin replacement therapy. (5) Secondary hyperparathyroidism of renal origin ICD Codes: N25.81 - Secondary hyperparathyroidism of renal origin Plan: Check intact PTH level and vitamin D 25-hydroxy level. Eufemia Marquis MD Jul 03, 2017 15:17
[2017-07-03] MEDS ORDERED: CHLOROTHIAZIDE SOD 500 MG VIAL IV ONE (16:00)
[2017-07-03] MEDS: INSULIN DETEMIR 100 UNITS/ML VIAL SQ SCH (20:10)
--- NOTE | 2017-07-03 20:55 | EKG ---
Date Performed: 07/02/2017 Time Performed: 12:38:28 PTAGE: 62 years EKG: Sinus rhythm ST DEVIATION AND MODERATE T-WAVE ABNORMALITY, CONSIDER LATERAL ISCHEMIA ABNORMAL ECG NO PREVIOUS TRACING DOCTOR: Jose Mcgregor Interpretating Date/Time 07/03/2017 20:48:31
[2017-07-04] VITALS (12 sets, daily range): BP systolic 96–183; BP diastolic 57–83; PULSE 61–72; RESP 11–21; TEMP 98–98.6; O2SAT 97–100
[2017-07-04] MEDS: CHLORHEXIDINE GLUCONATE 2 % 1 PACK (2 CLOTHS) TOP SCH (03:28)
[2017-07-04] MEDS: LEVOTHYROXINE SODIUM 112 MCG TAB PO SCH (05:25)
[2017-07-04] MEDS: ISOSORBIDE MONONITRATE 30 MG TAB PO SCH (05:25)
[2017-07-04 05:48] LABS: HEMATOCRIT 28.2 % (35.0-46.0); MEAN CELL VOLUME 89.3 FL (80.0-100.0); MEAN CORPUSCULAR HEMOGLOBIN 29.5 PG (27.0-34.0); PLATELET COUNT 161 TH/MM3 (150-450); RED BLOOD COUNT 3.16 MIL/MM3 (4.00-5.30); RED CELL DISTRIBUTION WIDTH 15.3 % (11.6-17.2); REVIEW FLAG FINAL; WHITE BLOOD COUNT 5.3 TH/MM3 (4.0-11.0)
[2017-07-04 06:13] LABS: BICARBONATE 26.4 MEQ/L (21.0-32.0); MAGNESIUM 2.1 MG/DL (1.5-2.5); POTASSIUM 3.5 MEQ/L (3.5-5.1)
[2017-07-04 06:19] LABS: TOTAL PROTEIN SPE 5.9 GM/DL (6.0-7.6)
[2017-07-04] MEDS: INSULIN NovoLIN REGULAR SUPPLEMENTAL SCALE SQ SCH (08:00)
[2017-07-04] MEDS: BUMETANIDE 1 MG TAB PO SCH ×2 (09:03→22:09)
[2017-07-04] MEDS: PRAVASTATIN SOD 80 MG TAB PO SCH (09:03)
[2017-07-04] MEDS: METOLAZONE 5 MG TAB PO SCH (09:03)
[2017-07-04] MEDS: hydrALAZINE HCL 25 MG TAB PO SCH ×3 (09:04→17:22)
[2017-07-04] MEDS: SODIUM CHLORIDE 0.9% FLUSH 10 ML FLUSH IV FLUSH SCH ×2 (09:04→22:08)
[2017-07-04] MEDS: APIXABAN 5 MG TABLET PO SCH ×2 (09:04→22:09)
[2017-07-04] MEDS: DOCUSATE SODIUM 50 MG/SENNA 8.6 MG TAB PO SCH ×2 (09:04→22:09)
[2017-07-04] MEDS: cloNIDine HCL 0.2 MG TAB PO SCH ×2 (09:04→22:09)
[2017-07-04] MEDS: CARVEDILOL 12.5 MG TAB PO SCH ×3 (09:04→17:22)
--- NOTE | 2017-07-04 10:19 | HHI.PR ---
Subjective Remarks Follow-up for CKD stage V, volume overload, acute respiratory failure. Patient is currently doing well on nasal cannula. Denies any chest pain, fever or chills. Objective Vitals Vital Signs Date Time Temp Pulse Resp B/P (MAP) Pulse Ox O2 Delivery O2 Flow Rate FiO2 07/04/17 08:18 99 Nasal Cannula 2.00 07/04/17 08:00 98.0 64 21 177/83 (114) 100 07/04/17 07:00 64 07/04/17 06:00 63 07/04/17 04:00 98.2 63 14 159/78 (105) 100 07/04/17 04:00 62 07/04/17 02:00 63 07/04/17 00:00 98.6 61 15 96/57 (70) 100 07/04/17 00:00 61 07/03/17 23:00 58 07/03/17 22:00 65 07/03/17 20:03 95 Nasal Cannula 2.00 07/03/17 20:00 63 07/03/17 20:00 98.9 63 17 189/91 (123) 99 07/03/17 18:00 67 07/03/17 17:45 20 07/03/17 16:00 66 07/03/17 16:00 98.5 66 16 151/70 (97) 99 07/03/17 15:00 68 07/03/17 14:00 68 07/03/17 12:00 66 07/03/17 12:00 98.1 66 14 123/61 (81) 100 I/O 07/03/17 07/03/17 07/03/17 07/04/17 07/04/17 07/04/17 07:00 15:00 23:00 07:00 15:00 23:00 Intake Total 500 ml 675 ml 200 ml Output Total 0 ml 900 ml 1400 ml Balance 500 ml -225 ml -1200 ml Intake Oral 500 ml 675 ml 200 ml Output Urine Total 900 ml 1400 ml Stool Total 0 ml 0 ml 0 ml # Voids 2 Result Diagram: 07/04/17 0435 07/04/17 043 Imaging Last Impressions Chest X-Ray 07/03/17 0000 Signed Impressions: Service Date/Time: Monday, July 03, 2017 02:38 - CONCLUSION: Decreasing failure, now mild. Jong Corbett MD Objective Remarks GENERAL: Alert, NAD. SKIN: Warm and dry. HEAD: Normocephalic. EYES: No scleral icterus. No injection or drainage. NECK: Supple, trachea midline. No JVD or lymphadenopathy. CARDIOVASCULAR: Regular rate and rhythm without murmurs, gallops, or rubs. RESPIRATORY: Breath sounds equal bilaterally. No accessory muscle use. GASTROINTESTINAL: Abdomen soft, non-tender, nondistended. MUSCULOSKELETAL: No cyanosis. Trace edema in lower extremities. BACK: Nontender without obvious deformity. No CVA tenderness. Procedures Echocardiogram 07/02/2017 Normal left ventricular size. Mild to moderate concentric left ventricular hypertrophy. The left ventricular systolic function is normal with an estimated ejection fraction in the range of 60-65%. Mild to moderate mitral valve regurgitation. Moderate mitral annular calcification. The estimated pulmonary arterial pressure is 83.6 mmHg. There is moderate tricuspid regurgitation. A/P Assessment and Plan Ms. Klein a 62-year-old female with a history of hypertension, CAD, diabetes mellitus, chronic kidney disease who was admitted to ICU on 07/02/2017 due to worsening shortness of breath that started 4 days prior to this admission. Her respiratory failure was likely due to fluid overload. Nephrology was consulted. Possible dialytic support was discussed but patient was not very interested in dialysis. She follows in outpatient ice cream shop associate Dr. Solis. - Chronic kidney disease stage V GFR less than 15. - Acute respiratory failure hypoxia - Patient's respiratory failure was likely due to fluid overload due to CK D stage IV 5. - Appreciate nephrology input. Patient is currently on bumetanide 1 mg by mouth twice a day, metolazone 5 mg daily - Her urine output is good currently. 2300 mL over 24 hours. She can follow -up with her outpatient ice cream shop associate. - Diabetes mellitus - Continue Levemir 15 units daily at bedtime, sliding scale insulin. - History of DVT - continue apixaban 5 mg twice a day. - Hypertension - Continue carvedilol 12.5 mg 3 times a day, clonidine 0.2 mg by mouth twice a day, hydralazine 25 mg by mouth twice a day - Hypothyroidism - continue levothyroxine 112 g daily. Full code. Apixaban. Tiago Mallory DO Jul 04, 2017 10:19 am
[2017-07-04] MEDS: INSULIN ASPART SUPPLEMENTAL SCALE SQ SCH ×3 (12:00→22:08)
--- NOTE | 2017-07-04 12:01 | HHI.NPPN ---
Subjective History of Present Illness This patient is a 62-year-old black female apparently with a history of chronic kidney disease stage IV based on previous laboratory results was followed by a cattle sticker over and [place], Dr. Solis. Patient was transported from the emergency room associated with this institution on the west side of [facility] and the patient's own cattle sticker does not come to this institution. According to the patient she saw her cattle sticker last week and amlodipine was discontinued secondary to lower extremity edema. Patient subsequently developed increasing shortness of breath presenting to this institution with radiological and clinical evidence of congestive heart failure. Renal indices have deteriorated further with a GFR now being below 15. On reviewing the record she appears to have heavy proteinuria prior to this presentation. She was in fact on dialysis in the past but was discontinued after there was some improvement in renal function. The patient indicated to me she has not been referred as yet for transplant evaluation. She also stated that she would not do dialysis again and the Lord will provide a kidney for her. Interval History Patient indicating his shortness of breath has improved since yesterday. Objective Data Data Vital Signs Date Time Temp Pulse Resp B/P (MAP) Pulse Ox O2 Delivery O2 Flow Rate FiO2 07/04/17 08:18 99 Nasal Cannula 2.00 07/04/17 08:00 98.0 64 21 177/83 (114) 100 07/04/17 07:00 64 07/04/17 06:00 63 07/04/17 04:00 98.2 63 14 159/78 (105) 100 07/04/17 04:00 62 07/04/17 02:00 63 07/04/17 00:00 98.6 61 15 96/57 (70) 100 07/04/17 00:00 61 07/03/17 23:00 58 07/03/17 22:00 65 07/03/17 20:03 95 Nasal Cannula 2.00 07/03/17 20:00 63 07/03/17 20:00 98.9 63 17 189/91 (123) 99 07/03/17 18:00 67 07/03/17 17:45 20 07/03/17 16:00 66 07/03/17 16:00 98.5 66 16 151/70 (97) 99 07/03/17 15:00 68 07/03/17 14:00 68 07/03/17 12:00 66 07/03/17 12:00 98.1 66 14 123/61 81 100 -: 07/04/1743407/04/17434 Physical Exam General Appearance: Well Developed, Well Nourished, No Acute Distress, Comfortable Neck Neck Exam: Trachea Midline Pulmonary Resp Exam: Clear Bilaterally, Breath Sounds Equal, No Distress Cardiology CV Exam: Regular, Normal Sinus Rhythm, Good Perfusion Gastrointestinal/Abdomen GI Exam: Soft, Non-Tender Integumentary Skin Exam: Warm, Normal Turgor Extremeties Extremities Exam: Moderate Edema (involving lower legs and ankles.), Pitting Edema Assessment/Plan Discussed Condition With: Patient Problem List: (1) CKD (chronic kidney disease) stage 5, GFR less than 15 ml/min ICD Codes: N18.5 - Chronic kidney disease, stage 5 Status: Chronic Plan: Patient's cardiac decompensation most likely primarily related to worsening renal function with increasing salt and water retention as discussed with her. She was advised that we can use diuretics for diuresis however this will not improve her renal function and I believe her azotemia will continue to deteriorate until ultimately she will require dialysis in the not too distant future. She was advised that we may be able to avoid dialytic support during this admission and if we do she needs to follow-up with her outpatient cattle sticker within the next 2 weeks for further planning for renal replacement therapy. She was also advised however that if her azotemia continues to progress during this admission we may have to consider initiating dialysis prior to discharge with subsequent outpatient dialysis. Unfortunately the patient shows limited insight into her renal disease despite lengthy discussion in layman's terms. She was also advised that if she is interested in a kidney transplant she should consider dialysis as a bridging modality to her goal. I advised her to discuss options post discharge with Dr. Solis her outpatient cattle sticker to whom care will be resumed with post discharge. I advised her that I will provide care at this institution only for the present admission. Continue to monitor renal indices and hopefully dialysis can be avoided during this admission. I also suggested that she try in the future to seek inpatient care at an institution where her own cattle sticker is available for continuity of care. Medications should be adjusted for the patient's estimated GFR if clinically indicated. Avoid agents with significant potential for nephrotoxicity possible including NSAIDs for analgesia, iodine contrast agents. Gadolinium is contraindicated if the GFR is below 30. (2) Diabetic nephropathy with proteinuria ICD Codes: E11.21 - Type 2 diabetes mellitus with diabetic nephropathy Plan: Protein/creatinine ratio to quantitate proteinuria. Abram inhibitors and angiotensin receptor blockers have been shown status is slow progression of CKD in the setting of proteinuria. Uncertain if this has been attempted in this patient previously. Decision regarding initiating such therapy will however be deferred to her outpatient cattle sticker who knows the patient better than myself. (3) Benign hypertension with chronic kidney disease, stage V ICD Codes: I12.0 - Hypertensive chronic kidney disease with stage 5 chronic kidney disease or end stage renal disease; N18.5 - Chronic kidney disease, stage 5 Plan: Increase hydralazine to 3 times a day. Zaroxolyn also added to current regimen. (4) Anemia in chronic kidney disease ICD Codes: N18.9 - Chronic kidney disease, unspecified; D63.1 - Anemia in chronic kidney disease Plan: Patient appears to be a candidate for erythropoietin replacement therapy however defer initiating therapy until blood pressure control improved. Also this could be done as an outpatient by her own cattle sticker. (5) Secondary hyperparathyroidism of renal origin ICD Codes: N25.81 - Secondary hyperparathyroidism of renal origin Plan: Initiate therapy with ergocalciferol. Continue calcitriol. Plan Total time spent in direct patient care 38 minutes. Eufemia Marquis MD Jul 04, 2017 12:01
[2017-07-04] MEDS ORDERED: ERGOCALCIFEROL (VIT D2) 50,000 UNIT CAP PO SCH (13:00)
[2017-07-04] MEDS: FAMOTIDINE 20 MG/2 ML VIAL IV PUSH SCH ×2 (13:21→21:00)
[2017-07-04] MEDS: INSULIN DETEMIR 100 UNITS/ML VIAL SQ SCH (22:08)
[2017-07-04] MEDS: oxyCODONE/ACETAMINOPHEN 5 MG/325 MG TAB PO PRN (23:17)
[2017-07-05] VITALS (7 sets, daily range): BP systolic 120–145; BP diastolic 58–73; PULSE 63–77; RESP 16–18; TEMP 97–98.4; O2SAT 94–97
[2017-07-05] MEDS: CHLORHEXIDINE GLUCONATE 2 % 1 PACK (2 CLOTHS) TOP SCH (03:44)
[2017-07-05] MEDS: LEVOTHYROXINE SODIUM 112 MCG TAB PO SCH (06:35)
[2017-07-05] MEDS: ISOSORBIDE MONONITRATE 30 MG TAB PO SCH (06:36)
[2017-07-05 08:12] LABS: BICARBONATE 28.5 MEQ/L (21.0-32.0); POTASSIUM 3.3 MEQ/L (3.5-5.1)
[2017-07-05] MEDS: APIXABAN 5 MG TABLET PO SCH (08:30)
[2017-07-05] MEDS: PRAVASTATIN SOD 80 MG TAB PO SCH (08:30)
[2017-07-05] MEDS: FAMOTIDINE 20 MG/2 ML VIAL IV PUSH SCH (08:30)
[2017-07-05] MEDS: cloNIDine HCL 0.2 MG TAB PO SCH (08:30)
[2017-07-05] MEDS: CARVEDILOL 12.5 MG TAB PO SCH ×3 (08:30→18:21)
[2017-07-05] MEDS: BUMETANIDE 1 MG TAB PO SCH (08:30)
[2017-07-05] MEDS: DOCUSATE SODIUM 50 MG/SENNA 8.6 MG TAB PO SCH (08:30)
[2017-07-05] MEDS: INSULIN ASPART SUPPLEMENTAL SCALE SQ SCH ×3 (08:31→18:20)
[2017-07-05] MEDS: hydrALAZINE HCL 25 MG TAB PO SCH ×3 (08:31→18:21)
[2017-07-05] MEDS: METOLAZONE 5 MG TAB PO SCH (08:31)
[2017-07-05] MEDS: SODIUM CHLORIDE 0.9% FLUSH 10 ML FLUSH IV FLUSH SCH (08:31)
[2017-07-05] MEDS ORDERED: POTASSIUM CHLORIDE 20 MEQ CONTROLLED RELEASE TAB PO ONE (09:00)
--- NOTE | 2017-07-05 10:40 | HHI.NPPN ---
Subjective History of Present Illness This patient is a 62-year-old black female apparently with a history of chronic kidney disease stage IV based on previous laboratory results was followed by a assistant merchandiser over and [place], Dr. Solis. Patient was transported from the emergency room associated with this institution on the west side of [facility] and the patient's own assistant merchandiser does not come to this institution. According to the patient she saw her assistant merchandiser last week and amlodipine was discontinued secondary to lower extremity edema. Patient subsequently developed increasing shortness of breath presenting to this institution with radiological and clinical evidence of congestive heart failure. Renal indices have deteriorated further with a GFR now being below 15. On reviewing the record she appears to have heavy proteinuria prior to this presentation. She was in fact on dialysis in the past but was discontinued after there was some improvement in renal function. The patient indicated to me she has not been referred as yet for transplant evaluation. She also stated that she would not do dialysis again and the Lord will provide a kidney for her. Interval History Pt states she is feeling better today and much better since her admission. Review of Systems Respiratory Lungs: SOB (improving) Objective Data Data Vital Signs Date Time Temp Pulse Resp B/P (MAP) Pulse Ox O2 Delivery O2 Flow Rate FiO2 07/05/17 08:45 64 07/05/17 08:45 Room Air 07/05/17 08:00 98.3 64 18 125/58 (80) 95 07/05/17 04:00 98.2 65 16 145/73 (97) 95 07/05/17 00:00 98.4 67 16 131/62 (85) 94 07/04/17 22:31 Room Air 07/04/17 20:00 98.4 72 18 183/83 (116) 97 07/04/17 16:08 98.3 66 18 142/67 (92) 100 07/04/17 14:00 68 07/04/17 12:00 67 07/04/17 12:00 98.1 67 11 150/70 (96) 100 -: 07/04/17 0435 07/05/17 0725 Imaging Last Impressions Chest X-Ray 07/03/17 0000 Signed Impressions: Service Date/Time: Monday, July 03, 2017 02:38 - CONCLUSION: Decreasing failure, now mild. Jong Corbett MD Medication Review Current Medications Medications (Trade) Dose Ordered Sig/Saad Route Start Time Stop Time Status Last Admin (Bumetanide) 1 mg BID PO 07/02/17 09:00 07/05/17 08:30 (Coreg) 12.5 mg TID PO 07/02/17 09:00 07/05/17 08:30 (Catapres) 0.2 mg BID PO 07/02/17 09:00 07/05/17 08:30 (Imdur) 30 mg DAILY@0700 PO 07/02/17 07:00 07/05/17 06:36 (Synthroid) 112 mcg DAILY@0700 PO 07/02/17 07:00 07/05/17 06:35 (Pravachol) 80 mg DAILY PO 07/02/17 09:00 07/05/17 08:30 (Levemir Inj) 15 units HS SQ 07/02/17 21:00 07/04/17 22:08 (D50w (Vial) Inj) 50 ml UNSCH PRN IV PUSH 07/02/17 04:30 (Glucagon Inj) 1 mg UNSCH PRN OTHER 07/02/17 04:30 (NS Flush) 2 ml UNSCH PRN IV FLUSH 07/02/17 04:30 (NS Flush) 2 ml BID IV FLUSH 07/02/17 09:00 07/05/17 08:31 (Tylenol) 650 mg Q6H PRN PO 07/02/17 04:30 (Percocet 5-325 Mg) 1 tab Q4H PRN PO 07/02/17 04:30 07/04/17 23:17 (Zofran Inj) 4 mg Q6H PRN IV PUSH 07/02/17 04:30 (Ambien) 5 mg HS PRN PO 07/02/17 04:30 07/03/17 00:47 (Duoneb Neb) 1 ampule Q2HR NEB PRN INH 07/02/17 04:30 Miscellaneous Information 1 Q361D XX 07/02/17 04:30 (Chlorhexidine 2% Cloth) 3 pack Taper DAILY@04 TOP 07/03/17 04:00 06/29/18 03:59 07/04/17 03:28 (Chlorhexidine 2% Cloth) 3 pack UNSCH PRN TOP 07/02/17 04:30 (Shi-Colace) 1 tab BID PO 07/02/17 09:00 07/05/17 08:30 (Milk Of Magnesia Liq) 30 ml Q12H PRN PO 07/02/17 04:30 07/04/17 17:21 (Senokot) 17.2 mg Q12H PRN PO 07/02/17 04:30 (Dulcolax Supp) 10 mg DAILY PRN RECTAL 07/02/17 04:30 (Lactulose Liq) 30 ml DAILY PRN PO 07/02/17 04:30 07/05/17 08:30 (Eliquis) 5 mg BID PO 07/03/17 09:00 07/05/17 08:30 (Zaroxolyn) 5 mg DAILY PO 07/04/17 09:00 07/05/17 08:31 (Apresoline) 25 mg TID PO 07/04/17 13:00 07/05/17 08:31 (Drisdol) 50,000 units Q7D PO 07/04/17 13:00 07/04/17 17:22 (NovoLOG SUPPLEMENTAL SCALE) 1 ACHS SLIDING SCALE SQ 07/05/17 12:00 Physical Exam General Appearance: Well Developed, Well Nourished, No Acute Distress, Comfortable Neck Neck Exam: Trachea Midline Pulmonary Resp Exam: Breath Sounds Equal, No Distress, Decreased Bases, Diminished Breath Sounds Cardiology CV Exam: Regular, Normal Sinus Rhythm, Good Perfusion Gastrointestinal/Abdomen GI Exam: Soft, Non-Tender Integumentary Skin Exam: Warm, Normal Turgor Extremeties Extremities Exam: Moderate Edema (involving lower legs and ankles, improving), Pitting Edema Assessment/Plan Discussed Condition With: Patient Problem List: (1) CKD (chronic kidney disease) stage 5, GFR less than 15 ml/min ICD Codes: N18.5 - Chronic kidney disease, stage 5 Status: Chronic Plan: Patient's cardiac decompensation most likely primarily related to worsening renal function with increasing salt and water retention as discussed with her. Volume status improving, but renal functions declining. Discussed again the severity of her renal decline and that this is likely progressive, yet, she continues to ask why we can't just give her something to improve her kidneys. Advised again that she will likely require dialytic intervention within the near -future if not this admission and she verbalizes that she does not want dialysis at this time. I am doubtful that we will be able to convince her otherwise as her insight is quite poor. Her UOP is good and her acid/base status is acceptable. KCl repletion given today as K+ mildly low. If her volume status continues to improve, we would be OK for her discharge with the next 24-48h with f/u with her home assistant merchandiser within 1 week. She was also advised that if she is interested in a kidney transplant she should consider dialysis as a bridging modality to her goal. I advised her to discuss options post discharge with Dr. Solis her outpatient assistant merchandiser to whom care will be resumed with post discharge. I advised her that I will provide care at this institution only for the present admission. Medications should be adjusted for the patient's estimated GFR if clinically indicated. Avoid agents with significant potential for nephrotoxicity possible including NSAIDs for analgesia, iodine contrast agents. Gadolinium is contraindicated if the GFR is below 30. (2) Diabetic nephropathy with proteinuria ICD Codes: E11.21 - Type 2 diabetes mellitus with diabetic nephropathy Plan: Protein/creatinine ratio to quantitate proteinuria. Abram inhibitors and angiotensin receptor blockers have been shown status is slow progression of CKD in the setting of proteinuria. Uncertain if this has been attempted in this patient previously. Decision regarding initiating such therapy will however be deferred to her outpatient assistant merchandiser who knows the patient better than myself. (3) Benign hypertension with chronic kidney disease, stage V ICD Codes: I12.0 - Hypertensive chronic kidney disease with stage 5 chronic kidney disease or end stage renal disease; N18.5 - Chronic kidney disease, stage 5 Plan: BP improving with medication adjustment (4) Anemia in chronic kidney disease ICD Codes: N18.9 - Chronic kidney disease, unspecified; D63.1 - Anemia in chronic kidney disease Plan: Patient appears to be a candidate for erythropoietin replacement therapy however defer initiating therapy until blood pressure control improved. Also this could be done as an outpatient by her own assistant merchandiser. (5) Secondary hyperparathyroidism of renal origin ICD Codes: N25.81 - Secondary hyperparathyroidism of renal origin Plan: Initiate therapy with ergocalciferol. Continue calcitriol. Charo Trinidad Jul 05, 2017 10:40
--- NOTE | 2017-07-05 13:19 | HHI.FF ---
Face to Face Verification Diagnosis: (1) CKD (chronic kidney disease) stage 5, GFR less than 15 ml/min Physical Therapy Order: Evaluate and Treat, Improve ambulation, Strength and gait training I have seen patient Ayanna Blackwell on 07/05/17. My clinical findings support the need for the requested home health care services because: Ltd mobility - disease progression I certify that my clinical findings support that this patient is homebound because: Unsafe to leave home unassisted Estiven Sarmiento MD Jul 05, 2017 13:19
[2017-07-05] MEDS ORDERED: METO5TAB3 PO (13:24)
[2017-07-05] MEDS ORDERED: HYDR-3799 PO (13:24)
--- NOTE | 2017-07-05 13:26 | HHI.DS ---
Discharge Summary Admission Date Jul 02, 2017 at 01:39 Discharge Date: Jul 05, 2017 Admitting Diagnosis resp failure (1) Respiratory failure ICD Code: J96.90 - Respiratory failure, unspecified, unspecified whether with hypoxia or hypercapnia Diagnosis: Principal Procedures Echocardiogram 07/02/2017 Normal left ventricular size. Mild to moderate concentric left ventricular hypertrophy. The left ventricular systolic function is normal with an estimated ejection fraction in the range of 60-65%. Mild to moderate mitral valve regurgitation. Moderate mitral annular calcification. The estimated pulmonary arterial pressure is 83.6 mmHg. There is moderate tricuspid regurgitation. Brief History - From Admission 62 year-old female history of hypertension, CAD, diabetes, kidney disease, DVTs , CHF presents for evaluation of worsening shortness of breath over the last 4 days. She feels significantly short of breath in with a minimum activities. She she has also been unable to lie flat. Her ankles have become more swollen. Patient has had congestive heart failure in the past and recently stopped diuretics per her rolling mill operator helper. Per the patient Renal function has been "doing well." She denies any fever or chills. She denies any recent illnesses. Denies any nausea or vomiting. Patient has no pain. She has no other symptoms to report. Substance Use: No CBC/BMP: 07/04/17 0435 07/05/17 0725 Significant Findings Laboratory Tests Test 07/03/17 03:27 07/04/17 04:35 07/04/17 07:15 07/05/17 07:25 Red Blood Count 3.06 MIL/MM3 (4.00-5.30) 3.16 MIL/MM3 (4.00-5.30) Hemoglobin 9.2 GM/DL (11.6-15.3) 9.3 GM/DL (11.6-15.3) Hematocrit 27.2 % (35.0-46.0) 28.2 % (35.0-46.0) Platelet Count 114 TH/MM3 (150-450) Mean Platelet Volume 11.1 FL (7.0-11.0) Monocytes (%) (Auto) 11.0 % (0.0-8.0) Blood Urea Nitrogen 50 MG/DL (7-18) 46 MG/DL (7-18) 45 MG/DL (7-18) Creatinine 3.97 MG/DL (0.50-1.00) 4.29 MG/DL (0.50-1.00) 4.37 MG/DL (0.50-1.00) Random Glucose 150 MG/DL (74-106) 136 MG/DL (74-106) Total Protein 5.6 GM/DL (6.4-8.2) 5.9 GM/DL (6.0-7.6) Albumin 2.1 GM/DL (3.4-5.0) 2.1 GM/DL (3.4-5.0) Calcium Level 8.3 MG/DL (8.5-10.1) Estimat Glomerular Filtration Rate 14 ML/MIN (>89) 13 ML/MIN (>89) 12 ML/MIN (>89) B-Type Natriuretic Peptide 558 PG/ML (0-100) Ferritin 362 NG/ML (8-252) 25-Hydroxy Vitamin D Total 24.1 ng/ML (30-100) Parathyroid Hormone (Intact) 310.8 PG/ML (12.4-76.8) Potassium Level 3.3 MEQ/L (3.5-5.1) Imaging Last Impressions Chest X-Ray 07/03/17 0000 Signed Impressions: Service Date/Time: Monday, July 03, 2017 02:38 - CONCLUSION: Decreasing failure, now mild. Jong Corbett MD PE at Discharge GENERAL: Alert, NAD. SKIN: Warm and dry. HEAD: Normocephalic. EYES: No scleral icterus. No injection or drainage. NECK: Supple, trachea midline. No JVD or lymphadenopathy. CARDIOVASCULAR: Regular rate and rhythm without murmurs, gallops, or rubs. RESPIRATORY: Breath sounds equal bilaterally. No accessory muscle use. GASTROINTESTINAL: Abdomen soft, non-tender, nondistended. MUSCULOSKELETAL: No cyanosis. Trace edema in lower extremities. BACK: Nontender without obvious deformity. No CVA tenderness. Hospital Course Ms. Klein a 62-year-old female with a history of hypertension, CAD, diabetes mellitus, chronic kidney disease who was admitted to ICU on 07/02/2017 due to worsening shortness of breath that started 4 days prior to this admission. Her respiratory failure was likely due to fluid overload. Nephrology was consulted. Possible dialytic support was discussed but patient was not very interested in dialysis. She follows in outpatient rolling mill operator helper Dr. Solis. - Chronic kidney disease stage V GFR less than 15. - Acute respiratory failure hypoxia. Resolved on RA - Patient's respiratory failure was likely due to fluid overload due to CK D stage IV 5. - Appreciate nephrology input. Patient is currently on bumetanide 1 mg by mouth twice a day, metolazone 5 mg daily - Her urine output is good currently. 2300 mL over 24 hours. She can follow -up with her outpatient rolling mill operator helper for HD and transplant. - Diabetes mellitus - Continue Levemir 15 units daily at bedtime, sliding scale insulin. - History of DVT - continue apixaban 5 mg twice a day. - Hypertension - Continue carvedilol 12.5 mg, clonidine 0.2 mg by mouth twice a day, hydralazine 25 mg by mouth twice a day. Stable - Hypothyroidism - continue levothyroxine 112 g daily. FEN. Vomited bfast coz she took her meds before meals which is usual for her. Denies other complaints. Stooling. If she tolerates lunch will dc home if cleared by renal Full code. Apixaban. Pt Condition on Discharge: Stable Discharge Disposition: Disch w/ Home Health Serv Discharge Time: > 30 minutes Discharge Instructions DIET: Follow Instructions for: Diabetic Diet Activities you can perform: Regular-No Restrictions Activities to Avoid: Driving Follow up Referrals: Nephrology - 1 Week PCP Follow-up - 1 Week New Orders: Home Health Care Physical Therapy New Medications: Hydralazine HCl (Hydralazine HCl) 25 Mg Tablet 25 MG PO TID for Blood Pressure Management, #90 TAB Metolazone (Metolazone) 5 Mg Tab 5 MG PO DAILY for Blood Pressure Management, #30 TAB Continued Medications: Apixaban (Eliquis) 5 Mg Tab 5 MG PO BID for Blood Clot Prevention, #60 TAB 0 Refills B-Complex W/ C & Folic Acid (Sherron-Joe Rx) 1 Tab 1 TAB PO DAILY for Nutritional Supplement, #30 TAB 0 Refills Bumetanide (Bumetanide) 1 Mg Tab 1 MG PO BID, #60 TAB 0 Refills Calcitriol (Calcitriol) 0.25 Mcg Cap 0.25 MCG PO DAILY for Calcium Supplement, #30 CAP 0 Refills Carvedilol (Carvedilol) 25 Mg Tab 12.5 MG PO BID, #60 TAB 0 Refills Cholecalciferol (Vitamin D3 Maximum Strength) 5,000 Unit Cap 5000 UNITS PO DAILY for Nutritional Supplement, #30 CAP 0 Refills Clonidine (Clonidine) 0.2 Mg Tab 0.2 MG PO BID for Blood Pressure Management, #60 TAB 0 Refills Hydrocodone-Acetaminophen (Lortab) 5-325 Mg Tab 1 TAB PO Q6H PRN for PAIN, #15 TAB 0 Refills Insulin Aspart Inj (Novolog Flexpen Inj) 300 Unit/3 Ml Pen 1 UNITS SQ for Blood Sugar Management, #1 PEN 0 Refills Insulin Glargine Inj (Lantus Solostar Pen Inj) 300 Unit/3 Ml Pen 15 UNITS SQ HS for Blood Sugar Management, PEN 0 Refills Isosorbide Mononitrate ER (Isosorbide Mononitrate ER) 30 Mg Capri 30 MG PO DAILY for Prevent Chest Pain, #30 TAB 0 Refills Levothyroxine (Levothyroxine) 112 Mcg Tab 112 MCG PO DAILY for Thyroid, #30 TAB 0 Refills Lidocaine Patch 12 HR (Lidocaine Patch 12 HR) 5 % Patch 1 PATCH TOPICAL DAILY for Pain Management, #1 BOX 0 Refills Remove patch after 12 hours Nitroglycerin SL (Nitroglycerin SL) 0.4 Mg Subl 0.4 MG SL DIRECTED PRN for CHEST PAIN, #100 TAB.SL 0 Refills ONE TABLET UNDER THE TONGUE NEEDED FOR CHEST PAIN, MAY REPEAT EVERY FIVE MINUTES FOR A TOTAL OF 3 DOSES OR CALL 911 IF NO RELIEF Pravastatin (Pravastatin) 80 Mg Tab 80 MG PO DAILY for Cholesterol Management, #30 TAB 0 Refills Discontinued Medications: Bumetanide (Bumetanide) 1 Mg Tab 1 MG PO DAILY, #30 TAB 0 Refills Clonidine (Clonidine) 0.1 Mg Tab 0.1 MG PO BID for Blood Pressure Management, #60 TAB 0 Refills Furosemide (Furosemide) 40 Mg Tab 40 MG PO DAILY, #30 TAB 0 Refills Hydralazine HCl (Hydralazine HCl) 25 Mg Tablet 25 MG PO BID for Blood Pressure Management, #60 TAB 0 Refills Estiven Sarmiento MD Jul 05, 2017 13:26
[2017-07-05 15:22] LABS: ALBUMIN SPE 2.68 GM/DL (3.50-5.00); ALPHA 1 GLOBULIN 0.28 GM/DL (0.11-0.29); ALPHA 2 GLOBULIN 0.97 GM/DL (0.22-1.00); BETA GLOBULINS (SPE) 0.9 GM/DL (0.53-1.03)
[2017-07-06 03:52] LABS: KAPPA/LAMBDA FREE 2.41 (0.26-1.65)
== END 2017-07-05 19:35 | disposition home health service (06) | DRG 291 ==
LOC: NEDDLT 01:36 → HIME 01:39 → N04B 07-04 15:16
PROVIDERS: ADMIT Internal Medicine; ATTEND Internal Medicine
DX: I13.2 Hypertensive heart and chronic kidney disease with heart failure and with stage 5 chronic kidney disease, or end stage renal disease (principal); J96.01 Acute respiratory failure with hypoxia; N17.9 Acute kidney failure, unspecified; N18.5 Chronic kidney disease, stage 5; N25.81 Secondary hyperparathyroidism of renal origin; I08.1 Rheumatic disorders of both mitral and tricuspid valves; E11.21 Type 2 diabetes mellitus with diabetic nephropathy; E87.79 Other fluid overload; I50.9 Heart failure, unspecified; E11.22 Type 2 diabetes mellitus with diabetic chronic kidney disease; E03.9 Hypothyroidism, unspecified; D63.1 Anemia in chronic kidney disease; I25.10 Atherosclerotic heart disease of native coronary artery without angina pectoris; M19.90 Unspecified osteoarthritis, unspecified site; Z79.01 Long term (current) use of anticoagulants; Z79.4 Long term (current) use of insulin; Z86.718 Personal history of other venous thrombosis and embolism; Z88.6 Allergy status to analgesic agent
CPT/HCPCS: 36600; 71010; 71020; 80048; 80053; 80069; 81001; 82306; 82550; 82552; 82728; 82805; 82948; 83540; 83735; 83880; 83883; 83970; 84100; 84165; 84484; 85025; 85027; 85379; 85610; 85730; 87641; 93005; 93306; 94620; J1205; J1644; J1815; J1940; J2405

== ENCOUNTER 2017-09-07 10:53 | Inpatient (IN) | payer MEDICAID ==
[~2017-09-07] VITALS: Ht 167.6 cm; Wt 80.5 kg
[2017-09-07] VITALS (15 sets, daily range): BP systolic 136–184; BP diastolic 63–88; PULSE 72–84; RESP 16–25; TEMP 98–99.7; O2SAT 92–100
[~2017-09-07 10:53] MED LIST changes: -CHOL1CAP13 PO; +CHOL500022 PO; -CLON0.1T PO; -FURO40TA PO; +METO5TAB3 PO
[2017-09-07] MEDS ORDERED: MAGNESIUM HYDROXIDE SUSP 30 ML CUP PO PRN (13:30)
[2017-09-07] MEDS ORDERED: MISCELLANEOUS NURSING INFORMATION XX SCH (13:30)
[2017-09-07] MEDS ORDERED: METOCLOPRAMIDE HCL 10 MG/2 ML VIAL IV PUSH PRN (13:30)
[2017-09-07] MEDS ORDERED: LACTULOSE SYRUP 20 GM/30 ML CUP PO PRN (13:30)
[2017-09-07] MEDS ORDERED: SODIUM CHLORIDE 0.9% FLUSH 10 ML FLUSH IV FLUSH PRN (13:30)
[2017-09-07] MEDS ORDERED: SENNOSIDES 8.6 MG TAB PO PRN (13:30)
[2017-09-07] MEDS ORDERED: CHLORHEXIDINE GLUCONATE 2 % 1 PACK (2 CLOTHS) TOP PRN (13:30)
[2017-09-07] MEDS ORDERED: ONDANSETRON HCL 4 MG/2 ML VIAL IV PUSH PRN ×2 (13:30)
[2017-09-07] MEDS ORDERED: BISACODYL 10 MG SUPP RECTAL PRN (13:30)
[2017-09-07] MEDS ORDERED: RESP: ALBUTEROL 2.5 MG/IPRATROPIUM 0.5 MG NEB (PRN) INH (13:30)
[2017-09-07] MEDS ORDERED: SODIUM CHLOR 0.9% 1000 ML INJ 1,000 ML IV SCH (14:00)
[2017-09-07] MEDS ORDERED: DESMOPRESSIN ACETATE 4 MCG/ML VIAL IV PUSH ONE (14:00)
[2017-09-07] MEDS ORDERED: PROTHROMBIN COMPLEX CONC INJ 4,000 UNITS in SYRINGE/BAG 1 EA IV ONE (14:30)
[2017-09-07 15:01] LABS: PHOSPHORUS 3.4 MG/DL (2.5-4.9)
--- NOTE | 2017-09-07 15:08 | HHI.HP ---
[facility] Service Critical Care Medicine Primary Care Physician Edson Morris MD Admission Diagnosis Uncontrolled nasal bleeding/ epistaxis, uremia, acute on chronic renal failure Diagnosis: (1) CKD (chronic kidney disease) stage 5, GFR less than 15 ml/min Diagnosis: Principal (2) Benign hypertension with chronic kidney disease, stage V Diagnosis: Principal (3) Epistaxis Diagnosis: Principal Travel History International Travel<30 Days: No Contact w/Intl Traveler <30 Da: No Traveled to Known Affected Are: No History of Present Illness This is a 62-year-old female that presented to [place] ED with epistaxis at 2 AM this morning. The patient medical history is significant for the fact that she is on Eliquis for a history of DVTs. A Rhino Rocket/nasal tampon was placed in the left nare and the patient was discharged home. The patient returned to the ED for persistent bleeding hemoglobin and hematocrit at that time was noted to be 7 and 22. A BMP was also creatinine was noted to be 3.5. The patient's medical history is significant for her having a CVA approximately 10 years ago and she has been recently hospitalized 06/2017 for CHF with a noted CK D stage V, the patient had been seen and followed with nephrology in [place], Dr. Solis, and previously has been on hemodialysis in the recent past. Critical care medicine was consulted, the patient was transferred from [place] ED. Review of Systems Gastrointestinal: COMPLAINS OF: Nausea, Vomiting Neurologic: COMPLAINS OF: Abnormal gait, Poor Balance Past Family Social History Allergies: Coded Allergies: ibuprofen (Verified Allergy, Severe, 09/07/17) aspirin (Verified Allergy, Unknown, 09/07/17) Past Medical History Hypertension, chronic kidney disease stage V, diabetic nephropathy, or artery disease, history of CHF, history of DVTs, history of CVA Past Surgical History Unable to obtain Reported Medications Reviewed Active Ordered Medications See MAR Family History Unable to obtain secondary to patient is a poor historian Social History Denies tobacco alcohol and illicit drug use Physical Exam Vital Signs Vital Signs Date Time Temp Pulse Resp B/P (MAP) Pulse Ox O2 Delivery O2 Flow Rate FiO2 09/07/17 13:00 72 09/07/17 13:00 98 Nasal Cannula 2.00 Physical Exam GENERAL: Well-developed well-nourished middle-aged female with noted Rhino Rocket left nare dried blood mouth, slightly lethargic SKIN: Warm and dry. HEAD: Atraumatic. Normocephalic. EYES: Pupils equal and round. No scleral icterus. No injection or drainage. ENT: Noted active nasal bleeding or discharge. Mucous membranes pink and moist. NECK: Trachea midline. No JVD. CARDIOVASCULAR: Normal rate, regular rhythm. Telemetry sinus rhythm RESPIRATORY: No accessory muscle use. Clear to auscultation. Breath sounds equal bilaterally. GASTROINTESTINAL: Abdomen soft, non-tender, nondistended. No guarding. MUSCULOSKELETAL: Extremities without clubbing, cyanosis, or edema. No obvious deformities. NEUROLOGICAL: Awake and alert. RASS 0. No gross focal/sensory deficits. Follows commands in all 4 extremities. Motor strength 4/5 B/L upper and lower extremities Septic Shock Reassessment Septic shock perfusion: reassessment completed Caprini VTE Risk Assessment Caprini VTE Risk Assessment: No/Low Risk (score <= 1) VTE Pharm Contraindication: Hemorrhage Caprini Risk Assessment Model Point Value = 1 Point Value = 2 Point Value = 3 Point Value = 5 Age 41-60 Minor surgery BMI > 25 kg/m2 Swollen legs Varicose veins or History of unexplained or recurrent spontaneous Oral contraceptives or hormone replacement Sepsis (< 1 month) Serious lung disease, including pneumonia (< 1 month) Abnormal pulmonary function Acute myocardial infarction Congestive heart failure (< 1 month) History of inflammatory bowel disease Medical patient at bed rest Age 61-74 Arthroscopic surgery Major open surgery (> 45 min) Laparoscopic surgery (> 45 min) Malignancy Confined to bed (> 72 hours) Immobilizing plaster cast Central venous access Age >= 75 History of VTE Family history of VTE Factor V Leiden Prothrombin [id number] Lupus anticoagulant Anticardiolipin antibodies Elevated serum homocysteine Heparin-induced thrombocytopenia Other congenital or acquired thrombophilia Stroke (< 1 month) Elective arthroplasty Hip, pelvis, or leg fracture Acute spinal cord injury (< 1 month) Prophylaxis Regimen Total Risk Factor Score Risk Level Prophylaxis Regimen 0-1 Low Early ambulation 2 Moderate Order ONE of the following: *Sequential Compression Device (SCD) *Heparin 5000 units SQ BID 3-4 Higher Order ONE of the following medications: *Heparin 5000 units SQ TID *Enoxaparin/Lovenox 40 mg SQ daily (WT < 150 kg, CrCl > 30 mL/min) *Enoxaparin/Lovenox 30 mg SQ daily (WT < 150 kg, CrCl > 10-29 mL/min) *Enoxaparin/Lovenox 30 mg SQ BID (WT < 150 kg, CrCl > 30 mL/min) AND/OR *Sequential Compression Device (SCD) 5 or more Highest Order ONE of the following medications: *Heparin 5000 units SQ TID (Preferred with Epidurals) *Enoxaparin/Lovenox 40 mg SQ daily (WT < 150 kg, CrCl > 30 mL/min) *Enoxaparin/Lovenox 30 mg SQ daily (WT < 150 kg, CrCl > 10-29 mL/min) *Enoxaparin/Lovenox 30 mg SQ BID (WT < 150 kg, CrCl > 30 mL/min) AND *Sequential Compression Device (SCD) Assessment and Plan Problem List: (1) Epistaxis ICD Code: R04.0 - Epistaxis Status: Acute (2) Diabetic nephropathy with proteinuria ICD Code: E11.21 - Type 2 diabetes mellitus with diabetic nephropathy Status: Chronic (3) Anemia in chronic kidney disease ICD Code: N18.9 - Chronic kidney disease, unspecified; D63.1 - Anemia in chronic kidney disease Assessment and Plan This is a 62-year-old female patient on chronic anticoagulation therapy, Eliquis now presenting with uncontrolled epistaxis, with CK D stage V. Concern for airway protection and anticoagulation status. Admit to ICU. Plan by systems: Neurologic: History of CVA Neurochecks per ICU protocol Avoid long-acting sedative type medications Tylenol 650 mg every 6 hours PRN for pain and fe Respiratory: Maintain O2 sat greater than 92% Provide O2 1-4 liters per minute via nasal cannula Duo nebs every 4 hours PRN for wheezing Maintain head of bed 30 Cardiovascular: Coronary artery disease History of CHF Pulmonary hypertension Hypertension Patient's home meds include carvedilol 12.5 mg BID, clonidine 0.2 mg BID, hydralazine 25 mg BID-to be continued Continue pravastatin 80 mg/day Echo 07/02/2017-ejection fraction 60-65%, moderate TR, moderate MR, concentric LVH. PASP 83.6mmHg, consider Sildenafil Telemetry-sinus rhythm Obtain EKG Renal: Chronic kidney disease stage V Diabetic nephropathy Nephrology consulted-creatinine 4.3, on discharge 06/2017 creatinine 3.5. Patient previously on hemodialysis recently patient unable to provide time frame , and was discharged and completed from therapy Patient's home medications include a Metalazone 5 mg/day and Bumex 1 mg BID currently on hold-defer to nephrology, creatinine 4.3 Insert Mobley -- Strict I/Os FEN/GI: Nausea Vomiting Maintain nothing by mouth status Zofran and metoclopramide for nausea Famotidine GI prophylaxis Begin gentle hydration Normal saline 42 cc/hour Heme/ID: Epistaxis Coagulopathy Acute blood loss anemia Anemia of chronic kidney disease Monitor CBC Provide reversal-DDAVP, K centra Type and screen-1 unit of FFP, she received 1 unit of FFP and [place] Patient on Eliquis for history of DVT-placed on hold Endocrine: Hypothyroidism Continue levothyroxine 112mcgs/day -- SSI Prophylaxis: GI Prophylaxis Famotidine BID DVT Prophylaxis -- SCDs No chemical prophylaxis at this time patient previously on Eliquis Lines: Peripheral IVs 2 providing adequate access. Central line if indicated Dispo: my billing statement This patient remains critically ill with one or more organ systems which are or may become a threat to life. I have spent in excess of 49 minutes discontinuously in the care and management of this patient. This time is exclusive of procedures, and includes, but is not limited to, evaluation of the patient, review of the medical record, discussions with family, consultants, nursing staff, or respiratory therapy, and documentation in the medical record. Code Status Full Discussed Condition With Patient, Dr. Cristobal Ledesma ED, FREIGHT BREAKER at bedside Problem Qualifiers (1) Anemia in chronic kidney disease: Qualified Codes: N18.5 - Chronic kidney disease, stage 5; D63.1 - Anemia in chronic kidney disease Ayanna Toney MD Sep 07, 2017 15:08
[2017-09-07 15:12] LABS: FREE T4 1.06 NG/DL (0.76-1.46)
[2017-09-07 15:20] LABS: INTERNATIONAL NORMALIZED RATIO 1.2 RATIO; PROTHROMBIN TIME - PATIENT 12.5 SEC (9.8-11.6)
[2017-09-07] MEDS: hydrALAZINE HCL 25 MG TAB PO SCH ×2 (16:00→22:10)
--- NOTE | 2017-09-07 17:19 | PD.CONS ---
HPI Service Nephrology Consult Requested By Reason for Consult CKD 5 not on HD Primary Care Physician Edson Morris MD History of Present Illness This is a 62 y/o female patient who was transferred from [facility]. She presented with nosebleed early this AM (is on Eliquis s/p CVA and DVT); a rhino rocket was placed and she was sent home. It continued to bleed, she returned, received FFP and was transferred here for evaluation of anemia and treatment of epistaxis. On exam she is sleepy, states she has been up all night. She has a mcnamara and is making urine. Her creatinine is 3.6. It is difficult to ascertain her baseline. It varies, ranges from 3-4.9. She has had multiple episodes of renal failure, has underlying diabetic nephropathy. She was on HD, had a Permcath but it was removed. She cannot tell me when it was stopped or for how long she was on HD. She is not retaining fluid. She is anemic , weak, and not in distress. We were consulted to assist with management. (Rosa Elena Richardson) Review of Systems Constitutional: COMPLAINS OF: Fatigue Ears, nose, mouth, throat: COMPLAINS OF: Epistaxis Cardiovascular: DENIES: Chest pain Gastrointestinal: DENIES: Abdominal pain (Rosa Elena Richardson) Past Family Social History Allergies: Coded Allergies: ibuprofen (Verified Allergy, Severe, 09/07/17) aspirin (Verified Allergy, Unknown, 09/07/17) Past Medical History Hypertension chronic kidney disease stage V (not on HD) -diabetic nephropathy history of CHF history of DVTs on Eliquis history of CVA Past Surgical History Unable to list Reported Medications Metolazone 5 Mg Tab 5 Mg PO DAILY Hydralazine HCl 25 Mg Tablet 25 Mg PO TID Bumetanide 1 Mg Tab 1 Mg PO BID Vitamin D3 Maximum Strength (Cholecalciferol) 5,000 Unit Cap 5,000 Units PO DAILY Nitroglycerin SL (Nitroglycerin) 0.4 Mg Subl 0.4 Mg SL DIRECTED PRN ONE TABLET UNDER THE TONGUE NEEDED FOR CHEST PAIN, MAY REPEAT EVERY FIVE MINUTES FOR A TOTAL OF 3 DOSES OR CALL 911 IF NO RELIEF Lidocaine Patch 12 HR (Lidocaine) 5 % Patch 1 Patch TOPICAL DAILY Remove patch after 12 hours Novolog Flexpen Inj (Insulin Aspart) 300 Unit/3 Ml Pen 1 Units SQ Pravastatin 80 Mg Tab 80 Mg PO DAILY Levothyroxine (Levothyroxine Sodium) 112 Mcg Tab 112 Mcg PO DAILY Eliquis (Apixaban) 5 Mg Tab 5 Mg PO BID Carvedilol 25 Mg Tab 12.5 Mg PO BID Lantus Solostar Pen Inj (Insulin Glargine) 300 Unit/3 Ml Pen 15 Units SQ HS Active Ordered Medications Current Medications Medications (Trade) Dose Ordered Sig/Saad Route Start Time Stop Time Status Last Admin Sodium Chloride 1,000 ml @ 42 mls/hr [id number] IV 09/07/17 14:00 09/07/17 13:43 (NS Flush) 2 ml UNSCH PRN IV FLUSH 09/07/17 13:30 (NS Flush) 2 ml BID IV FLUSH 09/07/17 21:00 (Tylenol) 650 mg Q6H PRN PO 09/07/17 13:30 (Pepcid Inj) 10 mg Q12HR IV PUSH 09/07/17 21:00 (Zofran Inj) 4 mg Q6H PRN IV PUSH 09/07/17 13:30 (Reglan Inj) 10 mg Q6H PRN IV PUSH 09/07/17 13:30 (Duoneb Neb) 1 ampule Q4HR NEB PRN INH 09/07/17 13:30 Miscellaneous Information 1 Q361D XX 09/07/17 13:30 09/07/17 13:30 (Chlorhexidine 2% Cloth) 3 pack Taper DAILY@04 TOP 09/08/17 04:00 09/04/18 03:59 (Chlorhexidine 2% Cloth) 3 pack UNSCH PRN TOP 09/07/17 13:30 (Shi-Colace) 1 tab BID PO 09/07/17 21:00 (Milk Of Magnesia Liq) 30 ml Q12H PRN PO 09/07/17 13:30 (Senokot) 17.2 mg Q12H PRN PO 09/07/17 13:30 (Dulcolax Supp) 10 mg DAILY PRN RECTAL 09/07/17 13:30 (Lactulose Liq) 30 ml DAILY PRN PO 09/07/17 13:30 (Coreg) 12.5 mg BID PO 09/07/17 21:00 (Apresoline) 25 mg Q8HR PO 09/07/17 16:00 09/07/17 16:00 (Synthroid) 112 mcg DAILY@0600 PO 09/08/17 06:00 (Pravachol) 80 mg DAILY PO 09/08/17 09:00 Family History Non contributory Social History Non smoking Lives with children Former company accountant uses cane/walker (Rosa Elena Richardson) Physical Exam Vital Signs Vital Signs Date Time Temp Pulse Resp B/P (MAP) Pulse Ox O2 Delivery O2 Flow Rate FiO2 09/07/17 16:00 78 09/07/17 16:00 99.2 78 19 136/63 (87) 93 09/07/17 15:52 99.0 76 19 154/66 (95) 95 09/07/17 14:47 99.0 76 19 154/66 95 09/07/17 14:46 99.1 77 25 154/66 92 09/07/17 14:00 78 09/07/17 13:00 72 09/07/17 13:00 98 Nasal Cannula 2.00 Physical Exam Young appearing AAF patient Lying in bed eyes closed Rhino rocket left nare Lungs clear S1/S2, NO edema Mcnamara draining Laboratory Laboratory Tests Test 09/07/17 14:26 Prothrombin Time 12.5 Prothromb Time International Ratio 1.2 Fibrinogen 334 Serum Osmolality 332 Phosphorus Level 3.4 Magnesium Level 2.0 Free Thyroxine 1.06 Thyroid Stimulating Hormone 3rd Gen 0.491 Parathyroid Hormone (Intact) 295.3 (Rosa Elena Richardson) Assessment and Plan Problem List: (1) CKD (chronic kidney disease) stage 4, GFR 15-29 ml/min ICD Codes: N18.4 - Chronic kidney disease, stage 4 (severe) Plan: Formerly on HD, unclear when it was stopped She is not in need of dialysis at this time She is non oliguric Repeat renal panel in AM Monitor electrolytes If tolerating PO, IVF not required (2) Epistaxis ICD Codes: R04.0 - Epistaxis Status: Acute Plan: Rhino rocket May need ENT evaluation if no improvement FFP as needed Monitor bleeding (3) Anemia in chronic kidney disease ICD Codes: N18.9 - Chronic kidney disease, unspecified; D63.1 - Anemia in chronic kidney disease Plan: Give 20K epogen Check iron profile. Transfuse if needed (Rosa Elena Richardson) Problem List: (1) CKD (chronic kidney disease) stage 4, GFR 15-29 ml/min ICD Codes: N18.4 - Chronic kidney disease, stage 4 (severe) Plan: Formerly on HD, unclear when it was stopped She is not in need of dialysis at this time She is non oliguric Repeat renal panel in AM Monitor electrolytes If tolerating PO, IVF not required (2) Epistaxis ICD Codes: R04.0 - Epistaxis Status: Acute Plan: Rhino rocket May need ENT evaluation if no improvement FFP as needed Monitor bleeding (3) Anemia in chronic kidney disease ICD Codes: N18.9 - Chronic kidney disease, unspecified; D63.1 - Anemia in chronic kidney disease Plan: Give 20K epogen Check iron profile. Transfuse if needed Assessment and Plan patient was seen and examined. Agree with above assessment and plan. No immediate need for dialysis. Monitor urine output and renal function. (Kalen Blanco MD) Problem Qualifiers (1) Anemia in chronic kidney disease: Qualified Codes: N18.5 - Chronic kidney disease, stage 5; D63.1 - Anemia in chronic kidney disease Rosa Elena Richardson Sep 07, 2017 17:19 Kalen Blanco MD Sep 07, 2017 18:20
[2017-09-07] MEDS ORDERED: EPOETIN ALFA 20,000 UNITS/ML VIAL SQ ONE (18:00)
[2017-09-07 18:51] LABS: INTERNATIONAL NORMALIZED RATIO 1.1 RATIO; PROTHROMBIN TIME - PATIENT 11.5 SEC (9.8-11.6)
[2017-09-07 18:53] LABS: HEMATOCRIT 15.6 % (35.0-46.0); HEMOGLOBIN 5.2 GM/DL (11.6-15.3)
[2017-09-07] MEDS ORDERED: SODIUM CHLOR 0.9% 250 ML INJ 250 ML IV ONE (21:00)
[2017-09-07] MEDS: FAMOTIDINE 20 MG/2 ML VIAL IV PUSH SCH (21:00)
[2017-09-07] MEDS: DOCUSATE SODIUM 50 MG/SENNA 8.6 MG TAB PO SCH (21:00)
[2017-09-07] MEDS: CARVEDILOL 12.5 MG TAB PO SCH (21:00)
[2017-09-07] MEDS: SODIUM CHLORIDE 0.9% FLUSH 10 ML FLUSH IV FLUSH SCH (21:00)
[2017-09-07] MEDS: ACETAMINOPHEN 325 MG TAB PO PRN (22:11)
[2017-09-07 22:17] LABS: HEMATOCRIT 16.2 % (35.0-46.0); HEMOGLOBIN 5.4 GM/DL (11.6-15.3)
[2017-09-07] MEDS: CHLORHEXIDINE GLUCONATE 2 % 1 PACK (2 CLOTHS) TOP SCH (23:49)
[2017-09-08] VITALS (16 sets, daily range): BP systolic 149–185; BP diastolic 67–88; PULSE 68–93; RESP 17–23; TEMP 98.3–99.2; O2SAT 93–100
[2017-09-08 04:33] LABS: HEMATOCRIT 25.2 % (35.0-46.0); HEMOGLOBIN 8.5 GM/DL (11.6-15.3); MEAN CELL VOLUME 88.6 FL (80.0-100.0); MEAN CORPUSCULAR HGB CONC 33.9 % (32.0-36.0); MEAN PLATELET VOLUME 10.2 FL (7.0-11.0); PLATELET COUNT 97 TH/MM3 (150-450); RED BLOOD COUNT 2.85 MIL/MM3 (4.00-5.30); RED CELL DISTRIBUTION WIDTH 14.5 % (11.6-17.2); WHITE BLOOD COUNT 6.1 TH/MM3 (4.0-11.0)
[2017-09-08 04:46] LABS: % SATURATION IRON PROFILE 85.6 % (20-50); BICARBONATE 25.1 MEQ/L (21.0-32.0); BLOOD UREA NITROGEN 87 MG/DL (7-18); CALCIUM 8.2 MG/DL (8.5-10.1); CHLORIDE 112 MEQ/L (98-107); GLOMERULAR FILTRATION RATE 17 ML/MIN (>89); GLUCOSE,RANDOM 139 MG/DL (74-106); IRON (FE) 211 MCG/DL (50-170); SODIUM (NA) 146 MEQ/L (136-145); TOTAL IRON BINDING CAPACITY 246 MCG/DL (250-450)
[2017-09-08 04:47] LABS: PHOSPHORUS 3.8 MG/DL (2.5-4.9)
[2017-09-08 05:06] LABS: INTERNATIONAL NORMALIZED RATIO 1.2 RATIO; PROTHROMBIN TIME - PATIENT 11.7 SEC (9.8-11.6)
[2017-09-08] MEDS: hydrALAZINE HCL 25 MG TAB PO SCH ×3 (05:37→22:18)
[2017-09-08] MEDS: LEVOTHYROXINE SODIUM 112 MCG TAB PO SCH (05:37)
[2017-09-08] MEDS ORDERED: LABETALOL HCL 100 MG/20 ML VIAL IV PUSH PRN (06:45)
--- NOTE | 2017-09-08 06:56 | HHI.CCPN ---
Subjective Remarks/Hospital Course This is a 62-year-old female that presented to [place] ED with epistaxis at 2 AM this morning. The patient medical history is significant for the fact that she is on Eliquis for a history of DVTs. A Rhino Rocket/nasal tampon was placed in the left nare and the patient was discharged home. The patient returned to the ED for persistent bleeding hemoglobin and hematocrit at that time was noted to be 7 and 22. A BMP was also creatinine was noted to be 3.5. The patient's medical history is significant for her having a CVA approximately 10 years ago and she has been recently hospitalized 06/2017 for CHF with a noted CK D stage V, the patient had been seen and followed with nephrology in [place], Dr. Solis, and previously has been on hemodialysis in the recent past. Critical care medicine was consulted, the patient was transferred from [place] ED. Subjective: 09/08: No acute issues overnight. Epistaxis , nausea and vomiting resolved. Patient hemodynamically stable requesting a diet. Patient to begin with clear liquid diet and advanced to renal diet this afternoon. Creatinine improved, patient returned to baseline previous admission of June/2017. Urine output 700cc in the last 12 hours. Objective Vital Signs Date Time Temp Pulse Resp B/P (MAP) Pulse Ox O2 Delivery O2 Flow Rate FiO2 09/08/17 06:00 76 09/08/17 04:00 98.3 22 172/87 (115) 100 09/07/17 19:00 Nasal Cannula 3.00 Intake and Output 09/08/17 09/08/17 09/09/17 08:00 16:00 00:00 Intake Total 950 ml Output Total 700 ml Balance 250 ml Result Diagram: 09/08/17 0350 09/08/17 0350 Objective Remarks GENERAL: Well-developed well-nourished middle-aged female with Rhino Rocket left nare, with no active signs of bleeding this a.m. SKIN: Warm and dry. HEAD: Atraumatic. Normocephalic. EYES: Pupils equal and round. No scleral icterus. No injection or drainage. ENT: No active nasal bleeding or discharge. Mucous membranes pink and moist. NECK: Trachea midline. No JVD. CARDIOVASCULAR: Normal rate, regular rhythm. Telemetry sinus rhythm RESPIRATORY: No accessory muscle use. Clear to auscultation. Breath sounds equal bilaterally. GASTROINTESTINAL: Abdomen soft, non-tender, nondistended. No guarding. MUSCULOSKELETAL: Extremities without clubbing, cyanosis, or edema. No obvious deformities. NEUROLOGICAL: Awake and alert. RASS 0. No gross focal/sensory deficits. Follows commands in all 4 extremities. Motor strength 4/5 B/L upper and lower extremities Urinary Catheter: Yes Date of Insertion: Sep 07, 2017 A/P Problem List: (1) Epistaxis ICD Code: R04.0 - Epistaxis Status: Acute (2) Diabetic nephropathy with proteinuria ICD Code: E11.21 - Type 2 diabetes mellitus with diabetic nephropathy Status: Chronic (3) Anemia in chronic kidney disease ICD Code: N18.9 - Chronic kidney disease, unspecified; D63.1 - Anemia in chronic kidney disease Assessment and Plan This is a 62-year-old female patient on chronic anticoagulation therapy, Eliquis now presenting with uncontrolled epistaxis, with CKD stage V. Plan by systems: Neurologic: History of CVA Neurochecks per ICU protocol Avoid long-acting sedative type medications Tylenol 650 mg every 6 hours PRN for pain and fever Respiratory: Maintain O2 sat greater than 92% Provide O2 1-4 liters per minute via nasal cannula, wean FiO2 Duo nebs every 4 hours PRN for wheezing Maintain head of bed 30 Cardiovascular: Coronary artery disease History of CHF Pulmonary hypertension Hypertension Patient's home meds include carvedilol 12.5 mg BID, clonidine 0.2 mg BID, hydralazine 25 mg BID Labetalol 20 mg every 6 hours when necessary for systolic BP greater than 180mmHG Continue pravastatin 80 mg/day Echo 07/02/2017-ejection fraction 60-65%, moderate TR, moderate MR, concentric LVH. PASP 83.6mmHg, consider Sildenafil Telemetry-sinus rhythm 09/07 EKG-PACs Renal: Chronic kidney disease stage V Diabetic nephropathy Nephrology consulted-creatinine 4.3, on discharge 06/2017 creatinine 3.5. Patient previously on hemodialysis recently patient unable to provide time frame , and was discharged and completed from therapy Per nephrology no dialysis indicated at this time Patient's home medications include a Metalazone 5 mg/day and Bumex 1 mg BID currently on hold-defer to nephrology, creatinine 4.3->3.4 this am Insert Mobley-for discontinuation to nephrology, urine output in 12 hours 700 cc -- Strict I/Os FEN/GI: Nausea-resolved Vomiting-resolved Begin clear liquid diet, advance to 1800-calorie ADA renal diet Zofran and metoclopramide for nausea Famotidine GI prophylaxis Normal saline 42 cc/hour-discontinue IV fluids upon toleration of diet Heme/ID: Epistaxis-resolved Coagulopathy-resolved Acute blood loss anemia-resolved Anemia of chronic kidney disease Thrombocytopenia Monitor CBC 09/07 -DDAVP, K centra 09/07 Transfused 1 unit of FFP, she received 1 unit of FFP and [place] Patient on Eliquis for history of DVT-placed on hold Endocrine: Hypothyroidism Diabetes mellitus Continue levothyroxine 112mcgs/day Glucose monitoring per ICU protocol -- SSI Prophylaxis: GI Prophylaxis Famotidine BID DVT Prophylaxis -- SCDs No chemical prophylaxis at this time patient previously on Eliquis Lines: Peripheral IVs 2 providing adequate access. Central line if indicated Dispo: Level II follow-up. Notable patient improvement ,plan transfer to [facility] floor. Plan transfer to [facility] in a.m. Physician Ayanna Toney Problem Qualifiers (1) Anemia in chronic kidney disease: Qualified Codes: N18.5 - Chronic kidney disease, stage 5; D63.1 - Anemia in chronic kidney disease Ayanna Toney MD Sep 08, 2017 06:56
[2017-09-08] MEDS: PRAVASTATIN SOD 80 MG TAB PO SCH (09:02)
[2017-09-08] MEDS: CARVEDILOL 12.5 MG TAB PO SCH ×2 (09:02→22:18)
[2017-09-08] MEDS: FAMOTIDINE 20 MG/2 ML VIAL IV PUSH SCH ×2 (09:02→22:18)
[2017-09-08] MEDS: DOCUSATE SODIUM 50 MG/SENNA 8.6 MG TAB PO SCH ×2 (09:02→22:18)
[2017-09-08] MEDS: SODIUM CHLORIDE 0.9% FLUSH 10 ML FLUSH IV FLUSH SCH ×2 (09:03→22:19)
--- NOTE | 2017-09-08 11:40 | HHI.NPPN ---
Subjective General Problems: Anemia, Hypertension Renal Failure: Chronic, Stage IV Interval History More alert today. Renal function improved slightly. Hb is better. (Rosa Elena Richardson) Review of Systems Ears, Nose, & Throat Ears, Nose & Throat: Nosebleed (Rosa Elena Richardson) Objective Data Data 09/08/17 09/09/17 19:00 07:00 Intake Total 486 ml Output Total 400 ml Balance 86 ml Intake Oral 360 ml IV Total 126 ml Output Urine Total 400 ml # Bowel Movements 1 Vital Signs Date Time Temp Pulse Resp B/P (MAP) Pulse Ox O2 Delivery O2 Flow Rate FiO2 09/08/17 10:01 93 17 168/78 (108) 93 09/08/17 08:00 99.1 87 18 182/81 (114) 97 09/08/17 08:00 98 Nasal Cannula 2.00 09/08/17 08:00 75 09/08/17 06:00 76 09/08/17 04:00 68 09/08/17 04:00 98.3 68 22 172/87 (115) 100 09/08/17 02:00 70 09/08/17 01:00 98.8 78 22 176/88 97 09/08/17 00:00 98.8 74 23 181/88 (119) 100 09/08/17 00:00 74 09/07/17 23:58 98.8 74 23 181/88 100 09/07/17 23:43 98.7 79 21 184/80 100 09/07/17 23:08 98.0 82 19 183/84 100 09/07/17 22:41 98.0 84 20 177/84 100 09/07/17 22:26 98.2 83 18 153/74 100 09/07/17 22:00 84 09/07/17 20:00 99.7 80 16 155/72 (99) 93 09/07/17 20:00 80 09/07/17 19:00 93 Nasal Cannula 3.00 09/07/17 19:00 93 Nasal Cannula 3.00 09/07/17 18:00 78 09/07/17 16:00 78 09/07/17 16:00 99.2 78 19 136/63 (87) 93 09/07/17 15:52 99.0 76 19 154/66 (95) 95 09/07/17 14:47 99.0 76 19 154/66 95 09/07/17 14:46 99.1 77 25 154/66 92 09/07/17 14:00 78 09/07/17 13:00 98 Nasal Cannula 2.00 09/07/17 13:00 72 09/07/17 13:00 98 Nasal Cannula 2.00 (Rosa Elena Richardson) -: 09/08/17 0350 09/08/17 0350 Physical Exam General Appearance: Well Developed, Comfortable (Rosa Elena Richardson) Eyes Eye Exam: Pupils Equal (Rosa Elena Richardson) Ears & Nose Ears & Nose Exam: Nosebleed Ears & Nose Remarks nasal packing left (Rosa Elena Richardson) Neck Neck Exam: Neck Supple, Trachea Midline (Rosa Elena Richardson) Pulmonary Resp Exam: Clear Bilaterally, Breath Sounds Equal (Rosa Elena Richardson) Cardiology CV Exam: Regular, Normal Sinus Rhythm (Rosa Elena Richardson) Gastrointestinal/Abdomen GI Exam: Soft, Non-Tender (Rosa Elena Richardson) Musculoskeletal MS Exam: Joints Intact, Normal Gait (Rosa Elena Richardson) Integumentary Skin Exam: Clear, Warm, Dry (Rosa Elena Richardson) Extremeties Extremities Exam: No Edema, Pedal Pulses Palpable (Rosa Elena Richardson) Neurologic Neuro Exam: Alert, Awake, Oriented, Speech Clear, Moving All Extremities (Rosa Elena Richardson) Psychiatric Psych Exam: Appropriate Responses (Rosa Elena Richardson) Assessment/Plan Discussed Condition With: Patient Assessment Summary: Anemia of CKD, Hypertension, CKD Stage IV Problem List: (1) CKD (chronic kidney disease) stage 4, GFR 15-29 ml/min ICD Codes: N18.4 - Chronic kidney disease, stage 4 (severe) Plan: Renal function is slightly better, continue to monitor She is non oliguric, mcnamara was removed She is not in need of dialysis at this time Repeat renal panel in AM Monitor electrolytes If tolerating PO, IVF not required Replace potassium (2) Epistaxis ICD Codes: R04.0 - Epistaxis Status: Acute Plan: Rhino rocket in place bleeding seems to have improved FFP given Monitor bleeding (3) Anemia in chronic kidney disease ICD Codes: N18.9 - Chronic kidney disease, unspecified; D63.1 - Anemia in chronic kidney disease Plan: Given 20K epogen start venofer Transfused 2 units (Rosa Elena Richardson) Plan patient was seen and examined. Agree with above assessment and plan. (Kalen Blanco MD) Problem Qualifiers (1) Anemia in chronic kidney disease: Qualified Codes: N18.5 - Chronic kidney disease, stage 5; D63.1 - Anemia in chronic kidney disease Rosa Elena Richardson Sep 08, 2017 11:40 Kalen Blanco MD Sep 08, 2017 15:16
[2017-09-08] MEDS ORDERED: GLUCAGON 1 MG/ML VIAL OTHER PRN (12:30)
[2017-09-08] MEDS ORDERED: DEXTROSE 50% IN WATER 50 ML VIAL(D50) IV PUSH PRN (12:30)
[2017-09-08 13:13] LABS: HEMATOCRIT 25.9 % (35.0-46.0); HEMOGLOBIN 8.9 GM/DL (11.6-15.3)
[2017-09-08] MEDS: IRON SUCROSE INJ 100 MG in SODIUM CHLORIDE 0.9% INJ 100 ML IV SCH (14:17)
[2017-09-08] MEDS ORDERED: hydrALAZINE HCL 20 MG/ML VIAL IV PUSH PRN (16:30)
[2017-09-08] MEDS: INSULIN ASPART SUPPLEMENTAL SCALE SQ SCH ×2 (16:35→22:19)
[2017-09-09] VITALS (11 sets, daily range): BP systolic 114–194; BP diastolic 56–89; PULSE 66–86; RESP 18; TEMP 97.8–98.6; O2SAT 93–99
[2017-09-09] MEDS: CHLORHEXIDINE GLUCONATE 2 % 1 PACK (2 CLOTHS) TOP SCH (03:46)
[2017-09-09] MEDS: LEVOTHYROXINE SODIUM 112 MCG TAB PO SCH (06:06)
[2017-09-09] MEDS: hydrALAZINE HCL 25 MG TAB PO SCH ×3 (06:06→21:17)
[2017-09-09] MEDS: INSULIN ASPART SUPPLEMENTAL SCALE SQ SCH ×4 (08:00→21:20)
[2017-09-09 08:07] LABS: HEMATOCRIT 24.9 % (35.0-46.0); HEMOGLOBIN 8.4 GM/DL (11.6-15.3); MEAN CELL VOLUME 89.6 FL (80.0-100.0); MEAN CORPUSCULAR HEMOGLOBIN 30.2 PG (27.0-34.0); MEAN CORPUSCULAR HGB CONC 33.7 % (32.0-36.0); MEAN PLATELET VOLUME 10.2 FL (7.0-11.0); PLATELET COUNT 101 TH/MM3 (150-450); RED BLOOD COUNT 2.78 MIL/MM3 (4.00-5.30); RED CELL DISTRIBUTION WIDTH 14.3 % (11.6-17.2); WHITE BLOOD COUNT 5.8 TH/MM3 (4.0-11.0)
[2017-09-09 08:28] LABS: CALCIUM 8.5 MG/DL (8.5-10.1); CREATININE 3.46 MG/DL (0.50-1.00)
[2017-09-09] MEDS: SODIUM CHLORIDE 0.9% FLUSH 10 ML FLUSH IV FLUSH SCH ×2 (08:37→21:18)
[2017-09-09] MEDS: PRAVASTATIN SOD 80 MG TAB PO SCH (08:37)
[2017-09-09] MEDS: ACETAMINOPHEN 325 MG TAB PO PRN ×3 (08:38→18:45)
[2017-09-09] MEDS: CARVEDILOL 12.5 MG TAB PO SCH ×2 (08:38→21:16)
[2017-09-09] MEDS: DOCUSATE SODIUM 50 MG/SENNA 8.6 MG TAB PO SCH ×2 (08:38→21:17)
[2017-09-09] MEDS: FAMOTIDINE 20 MG/2 ML VIAL IV PUSH SCH ×2 (08:39→21:00)
[2017-09-09] MEDS: IRON SUCROSE INJ 100 MG in SODIUM CHLORIDE 0.9% INJ 100 ML IV SCH (13:07)
--- NOTE | 2017-09-09 13:58 | HHI.PR ---
Subjective Remarks Patient is having melena but no new nose bleeds. Rhino rocket is in place. H&H stable today States she is still waiting to see ENT. Objective Vitals Vital Signs Date Time Temp Pulse Resp B/P (MAP) Pulse Ox O2 Delivery O2 Flow Rate FiO2 09/09/17 12:00 66 09/09/17 12:00 98.1 81 18 173/84 (113) 99 09/09/17 08:00 86 09/09/17 08:00 98.2 75 18 168/80 (109) 94 09/09/17 04:07 98.6 79 18 172/63 (99) 93 09/09/17 04:00 86 09/09/17 00:00 80 09/08/17 23:57 99.2 81 18 149/67 (94) 95 09/08/17 22:20 99 Nasal Cannula 2.00 09/08/17 21:48 98.9 81 18 166/81 (109) 99 09/08/17 20:00 Nasal Cannula 2.00 09/08/17 20:00 78 09/08/17 18:30 77 168/75 (106) 09/08/17 16:00 98.7 76 20 185/85 (118) 95 09/08/17 15:30 81 I/O 09/08/17 09/08/17 09/08/17 09/09/17 09/09/17 09/09/17 07:00 15:00 23:00 07:00 15:00 23:00 Intake Total 1352 ml 846 ml 105 ml 960 ml Output Total 700 ml 400 ml 500 ml Balance 652 ml 446 ml 105 ml 460 ml Intake Oral 720 ml 960 ml IV Total 525 ml 126 ml 105 ml Packed Cells 800 ml Blood Product IV Normal Saline Flush 27 ml Output Urine Total 700 ml 400 ml 500 ml # Voids 5 # Bowel Movements 1 2 Result Diagram: 09/09/17 0712 09/09/17 0712 Objective Remarks GENERAL: This is a well-nourished, well-developed patient, in no apparent distress. ENT: Left nares has a Rhino Rocket. Some dried blood but no active bleeding. CARDIOVASCULAR: Normal rate and regular rhythm without murmurs, gallops, or rubs. RESPIRATORY: Good respiratory efforts. Breath sounds equal and clear to auscultation bilaterally. GASTROINTESTINAL: Abdomen soft, non-tender, non-distended. Normal active bowel sounds MUSCULOSKELETAL: Extremities without cyanosis, or edema. NEURO: Alert & Oriented x4 to person, place, time, situation. Moves all ext x4 PSYCH: Appropriate mood and affect. Date of Insertion: Sep 07, 2017 A/P Problem List: (1) CKD (chronic kidney disease) stage 5, GFR less than 15 ml/min ICD Code: N18.5 - Chronic kidney disease, stage 5 Status: Chronic (2) Benign hypertension with chronic kidney disease, stage V ICD Code: I12.0 - Hypertensive chronic kidney disease with stage 5 chronic kidney disease or end stage renal disease; N18.5 - Chronic kidney disease, stage 5 (3) Epistaxis ICD Code: R04.0 - Epistaxis Status: Acute Assessment and Plan 61-year-old female on chronic anticoagulation therapy with Eliquis for CVA prevention admitted with uncontrolled epistaxis. Patient has been in the ICU, requiring blood transfusion. She is transferred to the medical floor. Severe epistaxis, patient was on Eliquis for CVA prevention. She has a history of previous stroke. Status post FFP Consult ENT regarding rhino rocket and further plans. Follow CBC. History of CVA: - Patient states she was put on Eliquis because of her heart history. It is unclear if she has had atrial fibrillation. - Would favor resuming anticoagulant if possible depending on recommendations from ENT. She can follow up outpatient with her primary care doctor and molder helper regarding further decisions about anticoagulant. Melena: Likely secondary to blood swallowed from epistaxis above. - Continue to monitor. - Follow CBC. Coronary artery disease/History of CHF/ Hypertension Continue home dose carvedilol 12.5 mg BID, clonidine 0.2 mg BID, hydralazine 25 mg BID Continue pravastatin 80 mg/day Echo 07/02/2017-ejection fraction 60-65%, moderate TR, moderate MR, concentric LVH. PASP 83.6mmHg Chronic kidney disease stage V/Diabetic nephropathy: Nephrology consulted-creatinine 4.3, on discharge 06/2017 creatinine 3.5. Patient previously on hemodialysis recently patient unable to provide time frame , and was discharged and completed from therapy Per nephrology no dialysis indicated at this time Patient's home medications include a Metalazone 5 mg/day and Bumex 1 mg BID currently on hold-defer to nephrology, creatinine stable this am Acute blood loss anemia-resolved Anemia of chronic kidney disease Thrombocytopenia Monitor CBC 09/07 -DDAVP, K centra 09/07 Transfused 1 unit of FFP Patient on Eliquis for history of CVA Prophylaxis: GI Prophylaxis Famotidine BID DVT Prophylaxis -- SCDs No chemical prophylaxis at this time patient previously on Eliquis Shawanda Allen MD Sep 09, 2017 13:58
--- NOTE | 2017-09-09 15:48 | HHI.NPPN ---
Subjective General Problems: Anemia, Hypertension Renal Failure: Chronic, Stage IV Interval History patient was seen and examined. Renal function is stable, and improved. No need for dialysis. Review of Systems Ears, Nose, & Throat Ears, Nose & Throat: Nosebleed Objective Data Data Vital Signs Date Time Temp Pulse Resp B/P (MAP) Pulse Ox O2 Delivery O2 Flow Rate FiO2 09/09/17 15:36 99 Nasal Cannula 2.00 09/09/17 12:00 66 09/09/17 12:00 98.1 81 18 173/84 (113) 99 09/09/17 08:00 86 09/09/17 08:00 98.2 75 18 168/80 (109) 94 09/09/17 04:07 98.6 79 18 172/63 (99) 93 09/09/17 04:00 86 09/09/17 00:00 80 09/08/17 23:57 99.2 81 18 149/67 (94) 95 09/08/17 22:20 99 Nasal Cannula 2.00 09/08/17 21:48 98.9 81 18 166/81 (109) 99 09/08/17 20:00 Nasal Cannula 2.00 09/08/17 20:00 78 09/08/17 18:30 77 168/75 (106) 09/08/17 16:00 98.7 76 20 185/85 (118) 95 -: 09/09/17 0712 09/09/17 0712 Physical Exam General Appearance: Well Developed, Comfortable Eyes Eye Exam: Pupils Equal Ears & Nose Ears & Nose Exam: Nosebleed Neck Neck Exam: Neck Supple, Trachea Midline Pulmonary Resp Exam: Clear Bilaterally, Breath Sounds Equal Cardiology CV Exam: Regular, Normal Sinus Rhythm Gastrointestinal/Abdomen GI Exam: Soft, Non-Tender Musculoskeletal MS Exam: Joints Intact, Normal Gait Integumentary Skin Exam: Clear, Warm, Dry Extremeties Extremities Exam: No Edema, Pedal Pulses Palpable Neurologic Neuro Exam: Alert, Awake, Oriented, Speech Clear, Moving All Extremities Psychiatric Psych Exam: Appropriate Responses Assessment/Plan Discussed Condition With: Patient Assessment Summary: Anemia of CKD, Hypertension, CKD Stage IV Problem List: (1) CKD (chronic kidney disease) stage 4, GFR 15-29 ml/min ICD Codes: N18.4 - Chronic kidney disease, stage 4 (severe) Plan: Renal function is slightly better, continue to monitor She is non oliguric. No need for dialysis. (2) Epistaxis ICD Codes: R04.0 - Epistaxis Status: Acute Plan: Rhino rocket in place bleeding seems to have improved FFP given Monitor bleeding (3) Anemia in chronic kidney disease ICD Codes: N18.9 - Chronic kidney disease, unspecified; D63.1 - Anemia in chronic kidney disease Plan: She has been transfused. On Venofer. Given Epogen. (4) Essential (primary) hypertension ICD Codes: I10 - Essential (primary) hypertension Plan: BP is not under control. Increased Hydralazine and Carvedilol. Problem Qualifiers (1) Anemia in chronic kidney disease: Qualified Codes: N18.5 - Chronic kidney disease, stage 5; D63.1 - Anemia in chronic kidney disease Kalen Blanco MD Sep 09, 2017 15:48
[2017-09-09] MEDS ORDERED: MENTHOL/METHYL SALICYLATE OINT 30 GM TUBE TOPICAL ONE (16:30)
--- NOTE | 2017-09-09 16:49 | MB ---
cc: SAMANTHA MAK MD DATE OF CONSULTATION 09/09/[address] Allen. REASON FOR CONSULTATION Epistaxis HISTORY OF PRESENT ILLNESS Ayanna Blackwell is a 62-year-old woman with a history of hypertension, diabetes and renal failure. She presented to the [place] emergency room early in the morning of September 07 with a left-sided epistaxis. She states this was her first episode ever and that there was spurting from her nose and mouth. Her nose was packed with a nasal tampon and she was released, but she returned shortly thereafter with recurrence of brisk bleeding from the nose. The packing was replaced and she was then transferred to intensive care at [facility]. She had required two units of blood transfusion and fresh frozen plasma to reverse the coagulopathy. She previously had been on Eliquis for history of DVT. She has been taken off the Eliquis. She presently is not on dialysis. She is having difficulty controlling her blood pressures since her admission. ALLERGIES IBUPROFEN ASPIRIN PAST MEDICAL HISTORY 1. chronic kidney disease stage V 2. Diabetic neuropathy, 3. Hypertension, 4. Congestive heart failure 5. DVTs PHYSICAL EXAMINATION GENERAL: On examination today, she is alert and cooperative and resting quietly. VITAL SIGNS: Pulse is 80, respirations 18, BP 172/63, pulse oximetry 94% on room air. HEAD: Normocephalic, atraumatic. Face is normal. ORAL CAVITY: mucous membranes are slightly pale. They are pink and moist. Tongue and mandible normal. NECK: No nodes or masses. EARS: Normal auricles, ear canals and tympanic membranes. NOSE: There is a rapid rhino nasal tampon protruding from the left nasal vestibule. There is no blood in the anterior or posterior of the nose. EARS: normal auricles, ear canals and tympanic membranes. ASSESSMENT 1. Epistaxis 2. Coagulopathy. PLAN Discussed with the patient. We will make plans to have examination under anesthesia and endoscopic control of epistaxis. She presently is scheduled for 8:00 a.m. September 10. I discussed the indications with her regarding this procedure. She is in agreement and would like to proceed. Samantha Mak MD [facility]/ /3:45 PM /4:27 PM
--- NOTE | 2017-09-09 23:49 | EKG ---
Date Performed: 09/07/2017 Time Performed: 15:35:27 PTAGE: 62 years EKG: ECTOPIC ATRIAL RHYTHM LATERAL MYOCARDIAL INFARCTION , OF INDETERMINATE AGE ABNORMAL ECG PREVIOUS TRACING : 07/02/2017 12.38 DOCTOR: Jose Mcgregor Interpretating Date/Time 09/09/2017 23:47:53
[2017-09-10] VITALS: PULSE 78
[2017-09-10] MEDS: CHLORHEXIDINE GLUCONATE 2 % 1 PACK (2 CLOTHS) TOP SCH (03:05)
[2017-09-10 04:00] VITALS: BP 175/77; PULSE 107; PULSE 73; RESP 18; TEMP 98.2; O2SAT 94
[2017-09-10] MEDS: hydrALAZINE HCL 25 MG TAB PO SCH ×3 (05:48→21:42)
[2017-09-10] MEDS: LEVOTHYROXINE SODIUM 112 MCG TAB PO SCH (05:48)
[2017-09-10 08:00] VITALS: BP 91/53; PULSE 75; PULSE 82; RESP 18; TEMP 98.1; O2SAT 100
[2017-09-10] MEDS: FAMOTIDINE 20 MG/2 ML VIAL IV PUSH SCH ×2 (08:24→21:41)
[2017-09-10] MEDS: INSULIN ASPART SUPPLEMENTAL SCALE SQ SCH ×4 (08:24→21:43)
[2017-09-10] MEDS: DOCUSATE SODIUM 50 MG/SENNA 8.6 MG TAB PO SCH ×2 (08:25→21:00)
[2017-09-10] MEDS: SODIUM CHLORIDE 0.9% FLUSH 10 ML FLUSH IV FLUSH SCH ×2 (08:25→21:41)
[2017-09-10] MEDS: CARVEDILOL 12.5 MG TAB PO SCH ×3 (08:25→21:42)
[2017-09-10] MEDS: PRAVASTATIN SOD 80 MG TAB PO SCH (08:25)
[2017-09-10 10:53] LABS: HEMATOCRIT 25.6 % (35.0-46.0); HEMOGLOBIN 8.6 GM/DL (11.6-15.3); MEAN CELL VOLUME 90.6 FL (80.0-100.0); MEAN CORPUSCULAR HEMOGLOBIN 30.4 PG (27.0-34.0); MEAN CORPUSCULAR HGB CONC 33.6 % (32.0-36.0); PLATELET COUNT 112 TH/MM3 (150-450); RED BLOOD COUNT 2.82 MIL/MM3 (4.00-5.30); RED CELL DISTRIBUTION WIDTH 14.2 % (11.6-17.2); WHITE BLOOD COUNT 6.3 TH/MM3 (4.0-11.0)
[2017-09-10 11:30] LABS: BICARBONATE 26.4 MEQ/L (21.0-32.0); CALCIUM 8.5 MG/DL (8.5-10.1); CREATININE 3.5 MG/DL (0.50-1.00)
[2017-09-10] MEDS: METOLAZONE 5 MG TAB PO SCH (11:45)
[2017-09-10] MEDS: BUMETANIDE 1 MG TAB PO SCH ×2 (11:45→17:26)
[2017-09-10 12:00] VITALS: BP 138/64; PULSE 75; PULSE 78; RESP 18; TEMP 98.5; O2SAT 96
[2017-09-10] MEDS: ACETAMINOPHEN 325 MG TAB PO PRN (12:12)
[2017-09-10] MEDS: IRON SUCROSE INJ 100 MG in SODIUM CHLORIDE 0.9% INJ 100 ML IV SCH (12:12)
--- NOTE | 2017-09-10 14:50 | HHI.PR ---
Subjective Remarks Patient reports she is feeling more swollen and gets easily tired with ambulation. Rhino Rocket has been removed by ENT. No further signs of bleeding. Renal function slightly worse. Objective Vitals Vital Signs Date Time Temp Pulse Resp B/P (MAP) Pulse Ox O2 Delivery O2 Flow Rate FiO2 09/10/17 12:00 78 09/10/17 12:00 98.5 75 18 138/64 (88) 96 09/10/17 08:00 2.00 09/10/17 08:00 98.1 75 18 91/53 (66) 100 09/10/17 08:00 82 09/10/17 04:00 98.2 73 18 175/77 (109) 94 09/10/17 04:00 107 09/10/17 00:00 78 09/09/17 23:40 98.4 73 18 123/56 (78) 93 09/09/17 20:42 98.2 71 18 194/89 (124) 99 09/09/17 20:00 Nasal Cannula 2.00 09/09/17 20:00 74 09/09/17 16:00 97.8 72 18 114/80 (91) 99 09/09/17 15:36 99 Nasal Cannula 2.00 09/09/17 15:15 69 I/O 09/09/17 09/09/17 09/09/17 09/10/17 09/10/17 09/10/17 07:00 15:00 23:00 07:00 15:00 23:00 Intake Total 960 ml 105 ml 480 ml 360 ml Output Total 500 ml Balance 460 ml 105 ml 480 ml 360 ml Intake Oral 960 ml 480 ml 360 ml IV Total 105 ml Output Urine Total 500 ml # Voids 5 3 2 # Bowel Movements 2 2 Result Diagram: 09/10/17 0958 09/10/17 0958 Objective Remarks GENERAL: This is a well-nourished, well-developed patient, in no apparent distress. ENT: Left nares with dried blood. CARDIOVASCULAR: Normal rate and regular rhythm without murmurs, gallops, or rubs. RESPIRATORY: Good respiratory efforts. Breath sounds equal. There is some faint bilateral basilar crackles. GASTROINTESTINAL: Abdomen soft, non-tender, non-distended. Normal active bowel sounds MUSCULOSKELETAL: Extremities without cyanosis, or edema. NEURO: Alert & Oriented x4 to person, place, time, situation. Moves all ext x4 PSYCH: Appropriate mood and affect. Date of Insertion: Sep 07, 2017 A/P Problem List: (1) CKD (chronic kidney disease) stage 5, GFR less than 15 ml/min ICD Code: N18.5 - Chronic kidney disease, stage 5 Status: Chronic (2) Benign hypertension with chronic kidney disease, stage V ICD Code: I12.0 - Hypertensive chronic kidney disease with stage 5 chronic kidney disease or end stage renal disease; N18.5 - Chronic kidney disease, stage 5 (3) Epistaxis ICD Code: R04.0 - Epistaxis Status: Acute Assessment and Plan 61-year-old female on chronic anticoagulation therapy with Eliquis for CVA prevention admitted with uncontrolled epistaxis. Patient has been in the ICU, requiring blood transfusion. She is transferred to the medical floor. Severe epistaxis on admission, patient was on Eliquis for CVA prevention. She has a history of previous stroke. Status post FFP Status post rhino rocket. Patient seen by ENT. Rhino Rocket removed. Bleeding stopped. Intranasal normal saline to keep nasal cavity moist. Follow CBC. History of CVA: - Patient states she was put on Eliquis because of her heart history. It is unclear if she has had atrial fibrillation. - Would favor resuming anticoagulant if possible. She can follow up outpatient with her primary care doctor and business control manager regarding further decisions about anticoagulant. Melena: Likely secondary to blood swallowed from epistaxis above. Resolving. - Continue to monitor. - Follow CBC. Coronary artery disease/History of CHF/ Hypertension Continue home dose carvedilol 12.5 mg BID, clonidine 0.2 mg BID, hydralazine 25 mg BID Continue pravastatin 80 mg/day Echo 07/02/2017-ejection fraction 60-65%, moderate TR, moderate MR, concentric LVH. PASP 83.6mmHg Resume home dose Bumex and metolazone. Appears she is retaining more fluid. BP labile. Continue home antihypertensives as above. Diuretics restarted. Continue to monitor Chronic kidney disease stage V/Diabetic nephropathy: Nephrology consulted-creatinine 4.3, on discharge 06/2017 creatinine 3.5. Patient previously on hemodialysis recently patient unable to provide time frame , and was discharged and completed therapy Per nephrology no dialysis indicated at this time Continue to monitor renal functions. Acute blood loss anemia-resolved Anemia of chronic kidney disease Thrombocytopenia Monitor CBC 09/07 -DDAVP, K centra / Transfused 1 unit of FFP Patient on Eliquis for history of CVA Prophylaxis: GI Prophylaxis Famotidine BID DVT Prophylaxis -- SCDs No chemical prophylaxis, patient previously on Eliquis Discharge Planning Continue to monitor the patient overnight. She may benefit from home health. Possible discharge tomorrow. Shawanda Allen MD Sep 10, 2017 14:50
[2017-09-10 16:00] VITALS: BP 140/65; PULSE 76; RESP 18; TEMP 98.2; O2SAT 100
--- NOTE | 2017-09-10 16:26 | HHI.NPPN ---
Subjective General Problems: Anemia, Hypertension Renal Failure: Chronic, Stage IV Review of Systems Ears, Nose, & Throat Ears, Nose & Throat: Nosebleed Objective Data Data Vital Signs Date Time Temp Pulse Resp B/P (MAP) Pulse Ox O2 Delivery O2 Flow Rate FiO2 09/10/17 16:00 98.2 76 18 140/65 (90) 100 09/10/17 12:00 78 09/10/17 12:00 98.5 75 18 138/64 (88) 96 09/10/17 08:00 2.00 09/10/17 08:00 98.1 75 18 91/53 (66) 100 09/10/17 08:00 82 09/10/17 04:00 98.2 73 18 175/77 (109) 94 09/10/17 04:00 107 09/10/17 00:00 78 09/09/17 23:40 98.4 73 18 123/56 (78) 93 09/09/17 20:42 98.2 71 18 194/89 (124) 99 09/09/17 20:00 Nasal Cannula 2.00 09/09/17 20:00 74 -: 09/10/17 0958 09/10/17 0958 Physical Exam General Appearance: Well Developed, Comfortable Eyes Eye Exam: Pupils Equal Ears & Nose Ears & Nose Exam: Nosebleed Neck Neck Exam: Neck Supple, Trachea Midline Pulmonary Resp Exam: Clear Bilaterally, Breath Sounds Equal Cardiology CV Exam: Regular, Normal Sinus Rhythm Gastrointestinal/Abdomen GI Exam: Soft, Non-Tender Musculoskeletal MS Exam: Joints Intact, Normal Gait Integumentary Skin Exam: Clear, Warm, Dry Extremeties Extremities Exam: No Edema, Pedal Pulses Palpable Neurologic Neuro Exam: Alert, Awake, Oriented, Speech Clear, Moving All Extremities Psychiatric Psych Exam: Appropriate Responses Assessment/Plan Discussed Condition With: Patient Assessment Summary: Anemia of CKD, Hypertension, CKD Stage IV Problem List: (1) CKD (chronic kidney disease) stage 4, GFR 15-29 ml/min ICD Codes: N18.4 - Chronic kidney disease, stage 4 (severe) Plan: Renal function is about same continue to monitor She is non oliguric. No need for dialysis. (2) Epistaxis ICD Codes: R04.0 - Epistaxis Status: Acute Plan: Rhino rocket in place bleeding seems to have improved FFP given Monitor bleeding (3) Anemia in chronic kidney disease ICD Codes: N18.9 - Chronic kidney disease, unspecified; D63.1 - Anemia in chronic kidney disease Plan: She has been transfused. On Venofer. Given Epogen. (4) Essential (primary) hypertension ICD Codes: I10 - Essential (primary) hypertension Plan: BP is not under control. Increased Hydralazine and Carvedilol. Problem Qualifiers (1) Anemia in chronic kidney disease: Qualified Codes: N18.5 - Chronic kidney disease, stage 5; D63.1 - Anemia in chronic kidney disease Zoya Long MD Sep 10, 2017 16:26
[2017-09-10 20:00] VITALS: BP_SYST 158; BP_SYST 201; BP_DIAS 88; BP_DIAS 92; PULSE 72; PULSE 75; RESP 17; TEMP 98.7; O2SAT 98
[2017-09-11] VITALS: BP 154/90; PULSE 72; PULSE 75; RESP 17; TEMP 98.6; O2SAT 96
[2017-09-11] MEDS: CHLORHEXIDINE GLUCONATE 2 % 1 PACK (2 CLOTHS) TOP SCH (02:59)
[2017-09-11 04:00] VITALS: BP 150/85; PULSE 66; PULSE 85; RESP 17; TEMP 98.7; O2SAT 96
[2017-09-11] MEDS: LEVOTHYROXINE SODIUM 112 MCG TAB PO SCH (05:15)
[2017-09-11] MEDS: hydrALAZINE HCL 25 MG TAB PO SCH ×2 (05:15→13:44)
[2017-09-11 08:00] VITALS: BP 153/70; PULSE 65; PULSE 69; RESP 18; TEMP 98.6; O2SAT 100
[2017-09-11] MEDS: INSULIN ASPART SUPPLEMENTAL SCALE SQ SCH ×3 (08:00→17:23)
[2017-09-11] MEDS: DOCUSATE SODIUM 50 MG/SENNA 8.6 MG TAB PO SCH (09:34)
[2017-09-11] MEDS: CARVEDILOL 12.5 MG TAB PO SCH (09:34)
[2017-09-11] MEDS: PRAVASTATIN SOD 80 MG TAB PO SCH (09:34)
[2017-09-11] MEDS: SODIUM CHLORIDE 0.9% FLUSH 10 ML FLUSH IV FLUSH SCH (09:35)
[2017-09-11] MEDS: FAMOTIDINE 20 MG/2 ML VIAL IV PUSH SCH (09:35)
[2017-09-11] MEDS: METOLAZONE 5 MG TAB PO SCH (09:35)
[2017-09-11] MEDS: BUMETANIDE 1 MG TAB PO SCH ×2 (09:37→16:46)
[2017-09-11 12:00] VITALS: BP 107/55; PULSE 69; RESP 18; TEMP 98.2; O2SAT 97
[2017-09-11] MEDS ORDERED: HYDR-3799 PO (13:25)
[2017-09-11] MEDS ORDERED: APIX2.5T PO (13:25)
[2017-09-11] MEDS ORDERED: BUME1TAB PO (13:25)
[2017-09-11] MEDS ORDERED: CARV25TA PO (13:25)
--- NOTE | 2017-09-11 13:26 | HHI.DS ---
Discharge Summary Admission Date Sep 07, 2017 at 12:40 Discharge Date: Sep 11, 2017 Admitting Diagnosis Uncontrolled nasal bleeding/ epistaxis, uremia, acute on chronic renal failure (1) CKD (chronic kidney disease) stage 5, GFR less than 15 ml/min ICD Code: N18.5 - Chronic kidney disease, stage 5 Diagnosis: Principal Status: Chronic (2) Benign hypertension with chronic kidney disease, stage V ICD Code: I12.0 - Hypertensive chronic kidney disease with stage 5 chronic kidney disease or end stage renal disease; N18.5 - Chronic kidney disease, stage 5 Diagnosis: Principal (3) Epistaxis ICD Code: R04.0 - Epistaxis Diagnosis: Principal Status: Acute Procedures Placement and removal of Rhino Rocket Brief History - From Admission History of present illness from the admitting physician This is a 62-year-old female that presented to [facility] with epistaxis at 2 AM this morning. The patient medical history is significant for the fact that she is on Eliquis for a history of DVTs. A Rhino Rocket/nasal tampon was placed in the left nare and the patient was discharged home. The patient returned to the ED for persistent bleeding hemoglobin and hematocrit at that time was noted to be 7 and 22. A BMP was also creatinine was noted to be 3.5. The patient's medical history is significant for her having a CVA approximately 10 years ago and she has been recently hospitalized 06/2017 for CHF with a noted CK D stage V, the patient had been seen and followed with nephrology in [place], Dr. Solis, and previously has been on hemodialysis in the recent past. Critical care medicine was consulted, the patient was transferred from [facility]. CBC/BMP: 09/10/17 0958 09/10/17 0958 Significant Findings Laboratory Tests Test 09/09/17 07:12 09/10/17 09:58 Red Blood Count 2.78 MIL/MM3 (4.00-5.30) 2.82 MIL/MM3 (4.00-5.30) Hemoglobin 8.4 GM/DL (11.6-15.3) 8.6 GM/DL (11.6-15.3) Hematocrit 24.9 % (35.0-46.0) 25.6 % (35.0-46.0) Platelet Count 101 TH/MM3 (150-450) 112 TH/MM3 (150-450) Blood Urea Nitrogen 79 MG/DL (7-18) 62 MG/DL (7-18) Creatinine 3.46 MG/DL (0.50-1.00) 3.50 MG/DL (0.50-1.00) Random Glucose 137 MG/DL (74-106) 187 MG/DL (74-106) Sodium Level 146 MEQ/L (136-145) Potassium Level 3.4 MEQ/L (3.5-5.1) Chloride Level 112 MEQ/L (98-107) 110 MEQ/L (98-107) Estimat Glomerular Filtration Rate 16 ML/MIN (>89) 16 ML/MIN (>89) PE at Discharge GENERAL: This is a well-nourished, well-developed patient, in no apparent distress. ENT: Left nares with dried blood. CARDIOVASCULAR: Normal rate and regular rhythm without murmurs, gallops, or rubs. RESPIRATORY: Good respiratory efforts. Breath sounds equal. There is some faint bilateral basilar crackles. GASTROINTESTINAL: Abdomen soft, non-tender, non-distended. Normal active bowel sounds MUSCULOSKELETAL: Extremities without cyanosis, or edema. NEURO: Alert & Oriented x4 to person, place, time, situation. Moves all ext x4 PSYCH: Appropriate mood and affect. Pt update on day of discharge Patient reports she is feeling better. Anxious to go home. She requested refill on blood pressure medications until she can see her PCP. Wants to go back on lower dose of Eliquis.. Hospital Course 61-year-old female on chronic anticoagulation therapy with Eliquis for CVA prevention admitted with uncontrolled epistaxis. Patient has been in the ICU, requiring transfusion and FFP. She was transferred to the medical floor. A Rhino Rocket was placed. The patient was evaluated by ENT, it was removed. The bleeding completely stopped. ENT advised the patient to use Intranasal normal saline to keep nasal cavity moist. Patient has a history of CVA, which is why she was on Eliquis. It is unclear if she has had atrial fibrillation. She agreed to go back on a lower dose of Eliquis. I advised the patient to discuss with her primary care physician and neurologist regarding further recommendations on anticoagulant. Other conditions treated include: Coronary artery disease/History of CHF/ Hypertension - Hypertension at times difficult to control. The patient's antihypertensives were adjusted. She is discharged on a new regimen as noted in the med rec. Chronic kidney disease stage V/Diabetic nephropathy: Nephrology consulted-creatinine 4.3, on discharge 06/2017 creatinine 3.5. Patient previously on hemodialysis recently patient unable to provide time frame , and was discharged and completed therapy Per nephrology no dialysis indicated at this time. Patient advised to follow- up outpatient with nephrology. Debility: Secondary to the patient's comorbid condition and acute episodes of blood loss anemia. - PT followed the patient. She is discharged with home physical therapy Pt Condition on Discharge: Good Discharge Disposition: Disch w/ Home Health Serv Discharge Time: > 30 minutes Discharge Instructions DIET: Follow Instructions for: Heart Healthy Diet Activities you can perform: Regular-No Restrictions Follow up Referrals: Nephrology - 2 Weeks PCP Follow-up - 1 Week Changed Medications: Apixaban (Eliquis) 2.5 Mg Tab 2.5 MG PO BID for Blood Clot Prevention, #60 TAB 0 Refills (Changed from: Apixaban (Eliquis) 5 Mg Tab 5 Mg PO BID Blood Clot Prevention #60 TAB Ref 0) Carvedilol (Carvedilol) 25 Mg Tab 25 MG PO BID, #60 TAB 0 Refills (Changed from: 12.5 MG) Continued Medications: Bumetanide (Bumetanide) 1 Mg Tab 1 MG PO BID, #60 TAB 0 Refills (This prescription has been renewed) Cholecalciferol (Vitamin D3 Maximum Strength) 5,000 Unit Cap 5000 UNITS PO DAILY for Nutritional Supplement, #30 CAP 0 Refills Hydralazine HCl (Hydralazine HCl) 25 Mg Tablet 25 MG PO TID for Blood Pressure Management, #90 TAB (This prescription has been renewed) Insulin Aspart Inj (Novolog Flexpen Inj) 300 Unit/3 Ml Pen 1 UNITS SQ for Blood Sugar Management, #1 PEN 0 Refills Insulin Glargine Inj (Lantus Solostar Pen Inj) 300 Unit/3 Ml Pen 15 UNITS SQ HS for Blood Sugar Management, PEN 0 Refills Levothyroxine (Levothyroxine) 112 Mcg Tab 112 MCG PO DAILY for Thyroid, #30 TAB 0 Refills Lidocaine Patch 12 HR (Lidocaine Patch 12 HR) 5 % Patch 1 PATCH TOPICAL DAILY for Pain Management, #1 BOX 0 Refills Remove patch after 12 hours Metolazone (Metolazone) 5 Mg Tab 5 MG PO DAILY for Blood Pressure Management, #30 TAB Nitroglycerin SL (Nitroglycerin SL) 0.4 Mg Subl 0.4 MG SL DIRECTED PRN for CHEST PAIN, #100 TAB.SL 0 Refills ONE TABLET UNDER THE TONGUE NEEDED FOR CHEST PAIN, MAY REPEAT EVERY FIVE MINUTES FOR A TOTAL OF 3 DOSES OR CALL 911 IF NO RELIEF Pravastatin (Pravastatin) 80 Mg Tab 80 MG PO DAILY for Cholesterol Management, #30 TAB 0 Refills Shawanda Allen MD Sep 11, 2017 13:25
--- NOTE | 2017-09-11 13:28 | HHI.FF ---
Face to Face Verification Diagnosis: (1) CHF (congestive heart failure) (2) Epistaxis (3) Anemia in chronic kidney disease (4) CKD (chronic kidney disease) stage 4, GFR 15-29 ml/min (5) Essential (primary) hypertension Physical Therapy Order: Evaluate and Treat, Improve ambulation, Strength and gait training Home Health Nursing Order: Medical education Signs/symptoms of disease process CHF education Nursing assessment with vital signs I have seen patient Ayanna Blackwell on 09/11/17. My clinical findings support the need for the requested home health care services because: Deconditioned w/ increased weakness Limited ability to care for self I certify that my clinical findings support that this patient is homebound because: Unsafe to leave home unassisted Shawanda Allen MD Sep 11, 2017 13:27
--- NOTE | 2017-09-11 13:29 | HHI.DCPOC ---
Discharge Care Plan Diagnosis: (1) Epistaxis (2) Anemia in chronic kidney disease (3) CKD (chronic kidney disease) stage 4, GFR 15-29 ml/min (4) Essential (primary) hypertension (5) CHF (congestive heart failure) Goals to Promote Your Health * To prevent worsening of your condition and complications * To maintain your health at the optimal level Directions to Meet Your Goals Take your medications as prescribed Follow your dietary instruction Follow activity as directed Keep your appointments as scheduled Take your immunizations and boosters as scheduled If your symptoms worsen call your PCP, if no PCP go to Urgent Care Center or Emergency Room Smoking is Dangerous to Your Health. Avoid second hand smoke Call the 24-hour hour crisis hotline for domestic abuse at Shawanda Allen MD Sep 11, 2017 13:29
[2017-09-11 16:00] VITALS: BP 120/53; PULSE 75; RESP 18; TEMP 98.5; O2SAT 100
[2017-09-11 17:05] LABS: HEMATOCRIT 27.3 % (35.0-46.0); MEAN CELL VOLUME 92.1 FL (80.0-100.0); MEAN CORPUSCULAR HEMOGLOBIN 30.4 PG (27.0-34.0); MEAN PLATELET VOLUME 10.6 FL (7.0-11.0); PLATELET COUNT 135 TH/MM3 (150-450); RED BLOOD COUNT 2.97 MIL/MM3 (4.00-5.30); RED CELL DISTRIBUTION WIDTH 14.5 % (11.6-17.2); WHITE BLOOD COUNT 6.4 TH/MM3 (4.0-11.0)
[2017-09-11 17:27] LABS: BICARBONATE 26.7 MEQ/L (21.0-32.0); CALCIUM 8.5 MG/DL (8.5-10.1); CREATININE 3.82 MG/DL (0.50-1.00)
== END 2017-09-11 17:30 | disposition home health service (06) | DRG 813 ==
LOC: NEDDLT 10:53 → N03B 12:40 → N04A 09-08 11:05
PROVIDERS: ADMIT Family Medicine; ATTEND Family Medicine
PROC: 30233R1 Transfusion of Nonautologous Platelets into Peripheral Vein, Percutaneous Approach (ICD-10-PCS; principal; 2017-09-07)
PROC: 30233N1 Transfusion of Nonautologous Red Blood Cells into Peripheral Vein, Percutaneous Approach (ICD-10-PCS; 2017-09-07)
PROC: 3E033GC Introduction of Other Therapeutic Substance into Peripheral Vein, Percutaneous Approach (ICD-10-PCS; 2017-09-08)
DX: D68.9 Coagulation defect, unspecified (principal); N18.5 Chronic kidney disease, stage 5; E11.21 Type 2 diabetes mellitus with diabetic nephropathy; I13.0 Hypertensive heart and chronic kidney disease with heart failure and stage 1 through stage 4 chronic kidney disease, or unspecified chronic kidney disease; I50.9 Heart failure, unspecified; D69.6 Thrombocytopenia, unspecified; D62 Acute posthemorrhagic anemia; I27.20 Pulmonary hypertension, unspecified; R04.0 Epistaxis; D63.1 Anemia in chronic kidney disease; Z86.73 Personal history of transient ischemic attack (TIA), and cerebral infarction without residual deficits; Z86.718 Personal history of other venous thrombosis and embolism; Z79.02 Long term (current) use of antithrombotics/antiplatelets; I25.10 Atherosclerotic heart disease of native coronary artery without angina pectoris; E03.9 Hypothyroidism, unspecified; Z53.8 Procedure and treatment not carried out for other reasons
CPT/HCPCS: 36430; 76937; 80048; 82330; 82948; 83540; 83550; 83735; 83930; 83970; 84100; 84439; 84443; 85014; 85018; 85025; 85027; 85384; 85610; 85730; 86850; 86900; 86901; 86920; 86927; 93005; 96361; 96374; 96375; C9132; J0360; J1756; J1815; J2060; J2405; J2597; J7030; J7050; P9016; P9017; Q4081

== ENCOUNTER 2017-10-07 17:44 | Observation (INO) | payer MEDICAID ==
[~2017-10-07 17:44] MED LIST changes: +APIX2.5T PO; -APIX5TAB PO; -CALC0.25 PO; +CALC0.5C PO; -CLON0.2T PO; +FURO1TAB60 PO; -HYDR-3533 PO; +HYDR-3801 PO; -ISOS30TA3 PO; +LANTUS2P SQ; +NOVOINJ SQ; -RENATAB6 PO
[2017-10-07 22:15] VITALS: BP 173/79; PULSE 83; RESP 16; TEMP 99.1; O2SAT 100
[2017-10-07] MEDS ORDERED: BUME1TAB PO (22:47)
[2017-10-07] MEDS ORDERED: SENNOSIDES 8.6 MG TAB PO PRN (23:00)
[2017-10-07] MEDS ORDERED: LACTULOSE SYRUP 20 GM/30 ML CUP PO PRN (23:00)
[2017-10-07] MEDS ORDERED: NALOXONE HCL 0.4 MG/ML AMP IV PUSH PRN (23:00)
[2017-10-07] MEDS ORDERED: ONDANSETRON HCL 4 MG/2 ML VIAL IVP PRN (23:00)
[2017-10-07] MEDS ORDERED: BISACODYL 10 MG SUPP RECTAL PRN (23:00)
[2017-10-07] MEDS ORDERED: MAGNESIUM HYDROXIDE SUSP 30 ML CUP PO PRN (23:00)
[2017-10-07] MEDS ORDERED: SODIUM CHLORIDE 0.9% FLUSH 10 ML FLUSH IV FLUSH PRN (23:00)
[2017-10-07] MEDS ORDERED: GLUCAGON 1 MG/ML VIAL OTHER PRN (23:15)
[2017-10-07] MEDS ORDERED: DEXTROSE 50% IN WATER 50 ML VIAL(D50) IV PUSH PRN (23:15)
--- NOTE | 2017-10-07 23:31 | HHI.HP ---
HPI Service [facility] Primary Care Physician Edson Morris MD Admission Diagnosis Diagnoses: Travel History International Travel<30 Days: No Contact w/Intl Traveler <30 Da: No Traveled to Known Affected Are: No History of Present Illness 62-year-old female with a past medical history significant for CHF (EF of 60-65 % on 07/02/17), hypertension, diabetes mellitus, hyperlipidemia, chronic kidney disease and history of CVA presents to the emergency department from her PCPs office for further evaluation of CHF exacerbation. The patient was being evaluated by her primary care physician who was concerned about volume overload and sent her to the emergency department. The patient complains of worsening increasing shortness of breath for the past 1.5 weeks. She has had a corresponding increase in her bilateral lower extremity edema as well despite being compliant with her medications. The chest pain/pressure, fever/chills, nausea/vomiting/diarrhea. No changes in mental status. Review of Systems Except as stated in HPI: all other systems reviewed are Neg Past Family Social History Past Medical History CHF (EF of 60-65%) Hypertension Insulin-dependent diabetes mellitus Hyperlipidemia CK D History of CVA Past Surgical History Cardiac catheterization Reported Medications Reported Meds & Active Scripts Active Eliquis (Apixaban) 2.5 Mg Tab 2.5 Mg PO BID Carvedilol 25 Mg Tab 25 Mg PO BID Reported Bumetanide 1 Mg Tab 1 Mg PO DAILY Lantus Inj (Insulin Glargine) 1,000 Unit/10 Ml Vial 24 Units SQ DAILY Novolog Penfill Inj (Insulin Aspart) 300 Unit/3 Ml Pen 10 Units SQ HS PRN Nitroglycerin SL (Nitroglycerin) 0.4 Mg Subl 0.4 Mg SL DIRECTED PRN ONE TABLET UNDER THE TONGUE NEEDED FOR CHEST PAIN, MAY REPEAT EVERY FIVE MINUTES FOR A TOTAL OF 3 DOSES OR CALL 911 IF NO RELIEF Pravastatin 80 Mg Tab 80 Mg PO HS Hydralazine (Hydralazine HCl) 100 Mg Tab 50 Mg PO BID Take with meals Calcitriol 0.5 Mcg Cap 0.5 Mcg PO DAILY Lasix (Furosemide) 40 Mg Tab 40 Mg PO DAILY Lidocaine Patch 12 HR (Lidocaine) 5 % Patch 1 Patch TOPICAL DAILY Remove patch after 12 hours Levothyroxine (Levothyroxine Sodium) 112 Mcg Tab 112 Mcg PO DAILY Allergies: Coded Allergies: ibuprofen (Verified Allergy, Severe, SWELLING, 10/07/17) aspirin (Verified Adverse Reaction, Intermediate, UPSETS STOMACH, 10/07/17) Family History Both parents with hypertension. Social History Denies alcohol, tobacco or illicit drugs Physical Exam Vital Signs Vital Signs Date Time Temp Pulse Resp B/P (MAP) Pulse Ox O2 Delivery O2 Flow Rate FiO2 10/07/17 22:15 99.1 83 16 173/79 (110) 100 Physical Exam GENERAL: female sitting up in bed SKIN: No rashes, ecchymoses or lesions. Cool and dry. HEAD: Atraumatic. Normocephalic. No temporal or scalp tenderness. EYES: Pupils equal round and reactive. Extraocular motions intact. No scleral icterus. No injection or drainage. ENT: Nose without bleeding, purulent drainage or septal hematoma. Throat without erythema, tonsillar hypertrophy or exudate. Uvula midline. Airway patent. NECK: Trachea midline. No JVD or lymphadenopathy. Supple, nontender, no meningeal signs. CARDIOVASCULAR: Regular rate and rhythm without murmurs, gallops, or rubs. RESPIRATORY: Bilateral crackles. No wheezes, rales, or rhonchi. GASTROINTESTINAL: Abdomen soft, non-tender, nondistended. No hepato-splenomegaly , or palpable masses. No guarding. MUSCULOSKELETAL: 2+ pitting edema to the knees with weeping. No calf tenderness. NEUROLOGICAL: Awake and alert. Cranial nerves II through XII intact. Motor and sensory grossly within normal limits. Normal speech. Caprini VTE Risk Assessment Caprini VTE Risk Assessment: Mod/High Risk (score >= 2) Caprini Risk Assessment Model Point Value = 1 Point Value = 2 Point Value = 3 Point Value = 5 Age 41-60 Minor surgery BMI > 25 kg/m2 Swollen legs Varicose veins or History of unexplained or recurrent spontaneous Oral contraceptives or hormone replacement Sepsis (< 1 month) Serious lung disease, including pneumonia (< 1 month) Abnormal pulmonary function Acute myocardial infarction Congestive heart failure (< 1 month) History of inflammatory bowel disease Medical patient at bed rest Age 61-74 Arthroscopic surgery Major open surgery (> 45 min) Laparoscopic surgery (> 45 min) Malignancy Confined to bed (> 72 hours) Immobilizing plaster cast Central venous access Age >= 75 History of VTE Family history of VTE Factor V Leiden Prothrombin [id number] Lupus anticoagulant Anticardiolipin antibodies Elevated serum homocysteine Heparin-induced thrombocytopenia Other congenital or acquired thrombophilia Stroke (< 1 month) Elective arthroplasty Hip, pelvis, or leg fracture Acute spinal cord injury (< 1 month) Prophylaxis Regimen Total Risk Factor Score Risk Level Prophylaxis Regimen 0-1 Low Early ambulation 2 Moderate Order ONE of the following: *Sequential Compression Device (SCD) *Heparin 5000 units SQ BID 3-4 Higher Order ONE of the following medications: *Heparin 5000 units SQ TID *Enoxaparin/Lovenox 40 mg SQ daily (WT < 150 kg, CrCl > 30 mL/min) *Enoxaparin/Lovenox 30 mg SQ daily (WT < 150 kg, CrCl > 10-29 mL/min) *Enoxaparin/Lovenox 30 mg SQ BID (WT < 150 kg, CrCl > 30 mL/min) AND/OR *Sequential Compression Device (SCD) 5 or more Highest Order ONE of the following medications: *Heparin 5000 units SQ TID (Preferred with Epidurals) *Enoxaparin/Lovenox 40 mg SQ daily (WT < 150 kg, CrCl > 30 mL/min) *Enoxaparin/Lovenox 30 mg SQ daily (WT < 150 kg, CrCl > 10-29 mL/min) *Enoxaparin/Lovenox 30 mg SQ BID (WT < 150 kg, CrCl > 30 mL/min) AND *Sequential Compression Device (SCD) Assessment and Plan Assessment and Plan Assessment/plan: 1. CHF exacerbation Chest x-ray significant for pulmonary edema with small effusions, personally reviewed BNP 184 Given patient's comorbidity of chronic renal disease, IV Bumex would be ideal for diuresis however this medication is currently out of stock. IV Lasix will be used for diuresis. Fluid restriction Supplemental oxygen as needed 2. Chronic kidney disease Creatinine 3.80, which is baseline for the patient Monitor renal function 3. Insulin-dependent diabetes mellitus Continue home Levemir SSI Monitor blood glucose 4. A fib Continue anticoagulation with Eliquis 5. Hypertension/hyperlipidemia Continue home medications FEN Heart healthy diet with fluid restriction Electrolytes: monitor and replete prn Alireza TerrazasSindhu Tawanna MD Oct 07, 2017 23:31
[2017-10-07 23:45] VITALS: O2SAT 100
[2017-10-07] MEDS: APIXABAN 2.5 MG TABLET PO SCH (23:46)
[2017-10-07] MEDS: PRAVASTATIN SOD 80 MG TAB PO SCH (23:46)
[2017-10-07] MEDS: hydrALAZINE HCL 100 MG TAB PO SCH (23:47)
[2017-10-07] MEDS: CARVEDILOL 12.5 MG TAB PO SCH (23:48)
[2017-10-08] VITALS (12 sets, daily range): BP systolic 136–168; BP diastolic 60–78; PULSE 68–81; RESP 16–20; TEMP 98.2–99.1; O2SAT 96–99
[2017-10-08] MEDS: LEVOTHYROXINE SODIUM 112 MCG TAB PO SCH (06:14)
[2017-10-08 06:40] LABS: AUTOMATED NEUTROPHIL # 2.7 TH/MM3 (1.8-7.7); BASOPHIL % 0.6 % (0.0-2.0); EOSINOPHIL # 0.1 TH/MM3 (0-0.4); EOSINOPHIL % 2.3 % (0.0-4.0); HEMATOCRIT 26.9 % (35.0-46.0); LYMPH % 23.8 % (9.0-44.0); MEAN CELL VOLUME 89.6 FL (80.0-100.0); MEAN CORPUSCULAR HGB CONC 33.5 % (32.0-36.0); MEAN PLATELET VOLUME 10.3 FL (7.0-11.0); MONO % 10.3 % (0.0-8.0); MONOCYTE # 0.4 TH/MM3 (0-0.9); PLATELET COUNT 123 TH/MM3 (150-450); RED BLOOD COUNT 3.01 MIL/MM3 (4.00-5.30); WHITE BLOOD COUNT 4.3 TH/MM3 (4.0-11.0)
[2017-10-08 06:51] LABS: BICARBONATE 26.2 MEQ/L (21.0-32.0); CALCIUM 8.4 MG/DL (8.5-10.1); CREATININE 3.56 MG/DL (0.50-1.00)
[2017-10-08] MEDS ORDERED: POTASSIUM CHLORIDE 20 MEQ CONTROLLED RELEASE TAB PO ONE (07:45)
[2017-10-08] MEDS: INSULIN ASPART SUPPLEMENTAL SCALE SQ SCH ×4 (08:00→21:33)
[2017-10-08] MEDS: APIXABAN 2.5 MG TABLET PO SCH ×2 (08:37→21:27)
[2017-10-08] MEDS: CARVEDILOL 12.5 MG TAB PO SCH ×2 (08:37→21:27)
[2017-10-08] MEDS: hydrALAZINE HCL 100 MG TAB PO SCH ×2 (08:37→23:05)
[2017-10-08] MEDS: FUROSEMIDE 40 MG/4 ML VIAL IV PUSH SCH ×2 (08:37→17:18)
[2017-10-08] MEDS: SODIUM CHLORIDE 0.9% FLUSH 10 ML FLUSH IV FLUSH SCH ×2 (08:38→21:26)
[2017-10-08] MEDS: INSULIN DETEMIR 100 UNITS/ML VIAL SQ SCH (08:40)
[2017-10-08] MEDS: LIDOCAINE HCL 5% PATCH T-DERMAL SCH (08:40)
[2017-10-08] MEDS ORDERED: FUROSEMIDE 40 MG/4 ML VIAL IV PUSH SCH (09:00)
--- NOTE | 2017-10-08 11:33 | HHI.PR ---
Subjective Remarks Follow-up for CHF exacerbation Patient stated that she will feel short of breath with exertion. Denies any sinus of breathing at rest and she is also on room air. Also her lower extremity edema. Denies any cough. She stated that she takes Bumex once a day and that her physician wanted to increase it to twice a day. Denying chest pain. Objective Vitals Vital Signs Date Time Temp Pulse Resp B/P (MAP) Pulse Ox O2 Delivery O2 Flow Rate FiO2 10/08/17 09:21 97 21 10/08/17 09:03 98.2 80 20 142/60 (87) 97 10/08/17 08:00 70 10/08/17 04:36 81 10/08/17 03:26 99.1 79 16 138/71 (93) 99 10/08/17 00:58 81 10/07/17 23:45 100 21 10/07/17 22:15 99.1 83 16 173/79 (110) 100 Result Diagram: 10/08/17 0532 10/08/17 0532 Objective Remarks GENERAL: in NAD CARDIOVASCULAR: Regular rate and rhythm without murmurs, gallops, or rubs. RESPIRATORY: Breath sounds equal bilaterally. No accessory muscle use. GASTROINTESTINAL: Abdomen soft, non-tender, nondistended. MUSCULOSKELETAL: + +1 LE edema Medications and IVs Current Medications Sodium Chloride (NS Flush) 2 ml UNSCH PRN IV FLUSH FLUSH AFTER USING IV ACCESS ; Start 10/07/17 at 23:00 Sodium Chloride (NS Flush) 2 ml BID IV FLUSH Last administered on 10/08/17at 08: 38; Start 10/08/17 at 09:00 Acetaminophen (Tylenol) 650 mg Q4H PRN PO TEMP > 100.4; Start 10/07/17 at 23:00 Ondansetron HCl (Zofran Inj) 4 mg Q6H PRN IVP NAUSEA OR VOMITING; Start at 23:00 Naloxone HCl (Narcan Inj) 0.4 mg UNSCH PRN IV PUSH SEE LABEL COMMENTS; Start at 23:00 Magnesium Hydroxide (Milk Of Magnesia Liq) 30 ml Q12H PRN PO Mild constipation ; Start 10/07/17 at 23:00 Sennosides (Senokot) 17.2 mg Q12H PRN PO Moderate constipation; Start 10/07/17 at 23:00 Bisacodyl (Dulcolax Supp) 10 mg DAILY PRN RECTAL SEVERE CONSITIPATION/ IF NPO; Start 10/07/17 at 23:00 Lactulose (Lactulose Liq) 30 ml DAILY PRN PO SEVERE CONSITIPATION / IF PO; Start 10/07/17 at 23:00 Furosemide (Lasix Inj) 40 mg BID@18 IV PUSH ; Start 10/08/17 at 09:00; Stop at 09:00; Status DC Apixaban (Eliquis) 2.5 mg BID PO Last administered on 10/08/17at 08:37; Start 10/07/17 at 23:15 Carvedilol (Coreg) 25 mg BID PO Last administered on 10/08/17at 08:37; Start 10/07 at 23:15 Hydralazine HCl (Apresoline) 50 mg BID PO Last administered on 10/08/17at 08:37; Start 10/07/17 at 23:15 Insulin Detemir (Levemir Inj) 24 units DAILY SQ ; Start 10/08/17 at 09:00 Levothyroxine Sodium (Synthroid) 112 mcg DAILY@0700 PO Last administered on 10/08at 06:14; Start 10/08/17 at 07:00 Lidocaine HCl (Lidoderm 5% Patch.12 Hr) 1 patch DAILY T-DERMAL Last administered on 10/08/17at 08:40; Start 10/08/17 at 09:00 Pravastatin Sodium (Pravachol) 80 mg HS PO Last administered on 10/07/17at 23:46 ; Start 10/07/17 at 23:15 Dextrose (D50w (Vial) Inj) 50 ml UNSCH PRN IV PUSH HYPOGLYCEMIA-SEE COMMENTS; Start 10/07/17 at 23:15 Glucagon (Glucagon Inj) 1 mg UNSCH PRN OTHER HYPOGLYCEMIA-SEE COMMENTS; Start 10/07/17 at 23:15 Insulin Aspart (NovoLOG SUPPLEMENTAL SCALE) 1 ACHS SLIDING SCALE SQ ; Start 10/08/17 at 08:00 Furosemide (Lasix Inj) 40 mg BID@,18 IV PUSH Last administered on 10/08/17at 08 :37; Start 10/08/17 at 09:00 Potassium Chloride (KCl) 20 meq ONCE ONCE PO Last administered on 10/08/17at 08: 37; Start 10/08/17 at 07:45; Stop 10/08/17 at 07:46; Status DC A/P Assessment and Plan Assessment/plan: 1. CHF exacerbation Chest x-ray significant for pulmonary edema with small effusions. BNP 1840 Given patient's comorbidity of chronic renal disease, IV Bumex would be ideal for diuresis however this medication is currently out of stock. Continue with IV Lasix. Strict ins and outs. Adjust accordingly. 2. Chronic kidney disease Creatinine 3.80, which is baseline for the patient Monitor renal function 3. Insulin-dependent diabetes mellitus Continue home Levemir SSI Monitor blood glucose 4. A fib Continue anticoagulation with Eliquis 5. Hypertension/hyperlipidemia Continue home medications DVT prophylaxis -On Eliquis. Florencia Blair MD Oct 08, 2017 11:33
[2017-10-08] MEDS: ACETAMINOPHEN 325 MG TAB PO PRN (11:37)
[2017-10-08] MEDS: PRAVASTATIN SOD 80 MG TAB PO SCH (21:27)
[2017-10-09] VITALS (10 sets, daily range): BP systolic 146–180; BP diastolic 77–87; PULSE 63–90; RESP 16–18; TEMP 98–99; O2SAT 94–99
[2017-10-09] MEDS ORDERED: cloNIDine HCL 0.1 MG TAB PO ONE (04:15)
[2017-10-09] MEDS: LEVOTHYROXINE SODIUM 112 MCG TAB PO SCH (06:24)
[2017-10-09 07:04] LABS: HEMATOCRIT 26.6 % (35.0-46.0); HEMOGLOBIN 8.9 GM/DL (11.6-15.3); MEAN CELL VOLUME 89.2 FL (80.0-100.0); MEAN CORPUSCULAR HEMOGLOBIN 29.9 PG (27.0-34.0); MEAN CORPUSCULAR HGB CONC 33.6 % (32.0-36.0); MEAN PLATELET VOLUME 10.3 FL (7.0-11.0); PLATELET COUNT 130 TH/MM3 (150-450); RED BLOOD COUNT 2.98 MIL/MM3 (4.00-5.30); RED CELL DISTRIBUTION WIDTH 14.8 % (11.6-17.2); WHITE BLOOD COUNT 4.5 TH/MM3 (4.0-11.0)
[2017-10-09 07:36] LABS: BICARBONATE 27.9 MEQ/L (21.0-32.0); CALCIUM 8.8 MG/DL (8.5-10.1); CREATININE 3.54 MG/DL (0.50-1.00)
[2017-10-09] MEDS: INSULIN ASPART SUPPLEMENTAL SCALE SQ SCH ×4 (08:00→20:50)
[2017-10-09] MEDS: INSULIN DETEMIR 100 UNITS/ML VIAL SQ SCH (08:19)
[2017-10-09] MEDS: hydrALAZINE HCL 100 MG TAB PO SCH ×2 (08:19→20:51)
[2017-10-09] MEDS: APIXABAN 2.5 MG TABLET PO SCH ×2 (08:19→20:51)
[2017-10-09] MEDS: CARVEDILOL 12.5 MG TAB PO SCH ×2 (08:19→20:51)
[2017-10-09] MEDS: LIDOCAINE HCL 5% PATCH T-DERMAL SCH (08:20)
[2017-10-09] MEDS: FUROSEMIDE 40 MG/4 ML VIAL IV PUSH SCH ×2 (08:20→17:18)
[2017-10-09] MEDS: SODIUM CHLORIDE 0.9% FLUSH 10 ML FLUSH IV FLUSH SCH ×2 (08:20→20:54)
--- NOTE | 2017-10-09 11:48 | HHI.PR ---
Subjective Remarks Follow-up for CHF exacerbation Patient stated that breathing has improved with exertion. She denies any shortness of breathing. Denies any cough. Lower extremity edema has improved. Pending echo. No other complaints. Discussed case with patient's nurse. Objective Vitals Vital Signs Date Time Temp Pulse Resp B/P (MAP) Pulse Ox O2 Delivery O2 Flow Rate FiO2 10/09/17 11:13 98.3 70 18 179/84 (115) 99 10/09/17 08:00 68 10/09/17 07:26 98.0 63 18 146/77 (100) 99 10/09/17 04:13 68 10/09/17 03:39 98.7 75 16 180/87 (118) 98 10/09/17 00:25 80 10/08/17 23:25 98.3 71 16 168/78 (108) 98 10/08/17 20:59 99 Nasal Cannula 2.00 10/08/17 20:05 76 10/08/17 20:04 98.4 76 16 155/73 (100) 99 10/08/17 15:27 98.2 68 20 140/60 (86) 98 10/08/17 11:56 98.2 80 20 136/60 (85) 96 I/O 10/08/17 10/08/17 10/08/17 10/09/17 10/09/17 10/09/17 07:00 15:00 23:00 07:00 15:00 23:00 Intake Total 750 ml 480 ml Balance 750 ml 480 ml Intake Oral 750 ml 480 ml # Voids 2 Result Diagram: 10/09/17 0601 10/09/17 0601 Objective Remarks GENERAL: in NAD CARDIOVASCULAR: Regular rate and rhythm without murmurs, gallops, or rubs. RESPIRATORY: Breath sounds equal bilaterally. No accessory muscle use. GASTROINTESTINAL: Abdomen soft, non-tender, nondistended. MUSCULOSKELETAL: + trace to +1 LE edema with improvement. mostly trace edema. Medications and IVs Current Medications Sodium Chloride (NS Flush) 2 ml UNSCH PRN IV FLUSH FLUSH AFTER USING IV ACCESS ; Start 10/07/17 at 23:00 Sodium Chloride (NS Flush) 2 ml BID IV FLUSH Last administered on 10/09/17at 08: 20; Start 10/08/17 at 09:00 Acetaminophen (Tylenol) 650 mg Q4H PRN PO TEMP > 100.4 or headeache Last administered on 10/08/17at 11:37; Start 10/07/17 at 23:00 Ondansetron HCl (Zofran Inj) 4 mg Q6H PRN IVP NAUSEA OR VOMITING; Start at 23:00 Naloxone HCl (Narcan Inj) 0.4 mg UNSCH PRN IV PUSH SEE LABEL COMMENTS; Start at 23:00 Magnesium Hydroxide (Milk Of Magnesia Liq) 30 ml Q12H PRN PO Mild constipation ; Start 10/07/17 at 23:00 Sennosides (Senokot) 17.2 mg Q12H PRN PO Moderate constipation; Start 10/07/17 at 23:00 Bisacodyl (Dulcolax Supp) 10 mg DAILY PRN RECTAL SEVERE CONSITIPATION/ IF NPO; Start 10/07/17 at 23:00 Lactulose (Lactulose Liq) 30 ml DAILY PRN PO SEVERE CONSITIPATION / IF PO; Start 10/07/17 at 23:00 Furosemide (Lasix Inj) 40 mg BID@18 IV PUSH ; Start 10/08/17 at 09:00; Stop at 09:00; Status DC Apixaban (Eliquis) 2.5 mg BID PO Last administered on 10/09/17 08:19; Start 10/07/17 at 23:15 Carvedilol (Coreg) 25 mg BID PO Last administered on 10/09/17 08:19; Start 10/07 at 23:15 Hydralazine HCl (Apresoline) 50 mg BID PO Last administered on 10/09/17 08:19; Start 10/07/17 at 23:15 Insulin Detemir (Levemir Inj) 24 units DAILY SQ Last administered on 10/09/17 08:19; Start 10/08/17 at 09:00 Levothyroxine Sodium (Synthroid) 112 mcg DAILY@0700 PO Last administered on 10/09 06:24; Start 10/08/17 at 07:00 Lidocaine HCl (Lidoderm 5% Patch.12 Hr) 1 patch DAILY T-DERMAL Last administered on 10/09/17at 08:20; Start 10/08/17 at 09:00 Pravastatin Sodium (Pravachol) 80 mg HS PO Last administered on 10/08/17at 21:27 ; Start 10/07/17 at 23:15 Dextrose (D50w (Vial) Inj) 50 ml UNSCH PRN IV PUSH HYPOGLYCEMIA-SEE COMMENTS; Start 10/07/17 at 23:15 Glucagon (Glucagon Inj) 1 mg UNSCH PRN OTHER HYPOGLYCEMIA-SEE COMMENTS; Start 10/07/17 at 23:15 Insulin Aspart (NovoLOG SUPPLEMENTAL SCALE) 1 ACHS SLIDING SCALE SQ Last administered on 10/08/17at 21:33; Start 10/08/17 at 08:00 Furosemide (Lasix Inj) 40 mg BID@,18 IV PUSH Last administered on 10/09/17at 08 :20; Start 10/08/17 at 09:00 Potassium Chloride (KCl) 20 meq ONCE ONCE PO Last administered on 10/08/17at 08: 37; Start 10/08/17 at 07:45; Stop 10/08/17 at 07:46; Status DC Clonidine (Catapres) 0.1 mg ONCE ONCE PO Last administered on 10/09/17at 05:02; Start 10/09/17 at 04:15; Stop 10/09/17 at 04:16; Status DC A/P Assessment and Plan This is a 62-year-old female presented with CHF exacerbation and increased lower extremity edema 1. CHF exacerbation Chest x-ray significant for pulmonary edema with small effusions. BNP 1840 Given patient's comorbidity of chronic renal disease, IV Bumex would be ideal for diuresis however this medication is currently out of stock. Clinically symptoms are improving drastically. Pending echo. Can transition to oral diuretic on discharge. 2. Chronic kidney disease Creatinine 3.80, which is baseline for the patient Monitor renal function 3. Insulin-dependent diabetes mellitus Continue home Levemir SSI Monitor blood glucose 4. A fib Continue anticoagulation with Eliquis 5. Hypertension/hyperlipidemia Continue home medications DVT prophylaxis -On Eliquis. Discharge Planning pending ECHO. most likely can be discharged home pending echo. Florencia Blair MD Oct 09, 2017 11:48
[2017-10-09] MEDS ORDERED: BUME1TAB PO (15:32)
--- NOTE | 2017-10-09 15:33 | HHI.DCPOC ---
Discharge Care Plan Diagnosis: (1) CHF (congestive heart failure) Goals to Promote Your Health * To prevent worsening of your condition and complications * To maintain your health at the optimal level Directions to Meet Your Goals Take your medications as prescribed Follow your dietary instruction Follow activity as directed Keep your appointments as scheduled Take your immunizations and boosters as scheduled If your symptoms worsen call your PCP, if no PCP go to Urgent Care Center or Emergency Room Smoking is Dangerous to Your Health. Avoid second hand smoke Call the 24-hour hour crisis hotline for domestic abuse at Florencia Blair MD Oct 09, 2017 15:32
--- NOTE | 2017-10-09 19:53 | ECHRPT ---
Indication: SOB CONCLUSIONS There is an apparent right ventricular apical thrombus present. Mildly dilated left ventricle. Moderate concentric left ventricular hypertrophy. The left ventricular systolic function is low normal with an estimated ejection fraction in the rang e of 50- 55%. The left atrial size is jvvf-cm-yojbmgqcmv dilated. Severe mitral annular calcification. Moderate mitral valve regurgitation. Trace aortic valve regurgitation. There is severe tricuspid regurgitation. There is estimated kkamimnt-uk-zgoeeu pulmonary hypertension present ( 67 mmHg). The pulmonary valve is not well visualized. There is a small pericardial effusion present. A moderate left sided pleural effusion is noted. No hemodynamically significant echocardiographic features were observed (no pre-tamponade physiology). BP: / HR: Rhythm: MEASUREMENTS (Male / Female) Normal Values Technical Quality:Good 2D ECHO LV Diastolic Diameter PLAX 5.1 cm 4.2 - 5.9 / 3.9 - 5.3 cm LV Systolic Diameter PLAX 4.0 cm IVS Diastolic Thickness 1.5 cm 0.6 - 1.0 / 0.6 - 0.9 cm LVPW Diastolic Thickness 1.2 cm 0.6 - 1.0 / 0.6 - 0.9 cm LV Relative Wall Thickness 0.5 RV Internal Dim ED PLAX 2.2 cm LA Systolic Diameter LX 5.0 cm 3.0 - 4.0 / 2.7 - 3.8 cm M-MODE Aortic Root Diameter MM 3.2 cm AV Cusp Separation MM 1.8 cm DOPPLER MV Peak Velocity 192.0 cm/s MV Peak Gradient 14.7 mmHg MV Mean Velocity 82.3 cm/s MV Mean Gradient 4.0 mmHg MR Peak Velocity 790.0 cm/s MR Peak Gradient 249.6 mmHg Mitral E Point Velocity 170.0 cm/s Mitral A Point Velocity 44.0 cm/s Mitral E to A Ratio 3.9 TR Peak Velocity 394.0 cm/s TR Peak Gradient 62.1 mmHg Right Atrial Pressure 5.0 mmHg Pulmonary Artery Systolic Pressu 67.1 mmHg Right Ventricular Systolic Press 67.1 mmHg FINDINGS LEFT VENTRICLE Mildly dilated left ventricle. Moderate concentric left ventricular hypertrophy. The left ventricular systolic function is low normal with an estimated ejection fraction in the rang e of 50- 55%. RIGHT VENTRICLE Normal right ventricular size and systolic function. There is an apparent right ventricular apical thrombus present. LEFT ATRIUM The left atrial size is hpnw-py-rigqgutqdv dilated. RIGHT ATRIUM The right atrial size is normal. ATRIAL SEPTUM Normal atrial septal thickness without atrial level shunting by limited color doppler interrogation. AORTA The aortic root and proximal ascending aorta are normal in size on limited imaging. MITRAL VALVE Severe mitral annular calcification. Moderate mitral valve regurgitation. AORTIC VALVE Trace aortic valve regurgitation. TRICUSPID VALVE There is severe tricuspid regurgitation. There is estimated raejtppc-tm-srekrs pulmonary hypertension present ( 67 mmHg). PULMONARY VALVE The pulmonary valve is not well visualized. VESSELS The inferior vena cava is normal in size. PERICARDIUM There is a small pericardial effusion present. A moderate left sided pleural effusion is noted. No hemodynamically significant echocardiographic features were observed (no pre-tamponade physiology). Jose Alejandro Floyd MD (Electronically Signed) Final Date:09 October 2017 19:53
[2017-10-09] MEDS: PRAVASTATIN SOD 80 MG TAB PO SCH (20:54)
[2017-10-10] VITALS (8 sets, daily range): BP systolic 112–212; BP diastolic 56–91; PULSE 65–76; RESP 17–20; TEMP 97.7–99.3; O2SAT 93–97
[2017-10-10] MEDS ORDERED: cloNIDine HCL 0.1 MG TAB PO ONE (01:00)
[2017-10-10] MEDS: INSULIN ASPART SUPPLEMENTAL SCALE SQ SCH ×4 (08:00→21:39)
[2017-10-10] MEDS: LEVOTHYROXINE SODIUM 112 MCG TAB PO SCH (08:03)
[2017-10-10] MEDS: hydrALAZINE HCL 100 MG TAB PO SCH ×2 (09:00→21:37)
[2017-10-10] MEDS: APIXABAN 5 MG TABLET PO SCH ×2 (09:00→21:37)
[2017-10-10] MEDS: CARVEDILOL 12.5 MG TAB PO SCH ×2 (09:00→21:38)
[2017-10-10] MEDS: SODIUM CHLORIDE 0.9% FLUSH 10 ML FLUSH IV FLUSH SCH ×2 (09:00→21:37)
[2017-10-10] MEDS: INSULIN DETEMIR 100 UNITS/ML VIAL SQ SCH (09:00)
--- NOTE | 2017-10-10 09:30 | HHI.PR ---
Subjective Remarks Follow-up shortness of breathing patient stated that shortness of breathing has improved but she continues to feel short of breath with exertion. Denies any cough. No fevers or chills. Patient feels like her "neck is beating." She stated that she did not have a good night yesterday because of this. I also reviewed Eliquis with patient due to echo findings and she stated that she has been on Eliquis for 2 years. She stated recently about a few weeks ago her Eliquis dose was decreased to 2.5 mg to nose bleed. She denies any focal neurological deficits. Denied any chest pain, palpitation , lightheadedness or dizziness. Objective Vitals Vital Signs Date Time Temp Pulse Resp B/P (MAP) Pulse Ox O2 Delivery O2 Flow Rate FiO2 10/10/17 07:59 97.9 66 20 183/88 (119) 95 10/10/17 03:45 98.1 65 17 167/79 (108) 93 10/10/17 02:42 168/78 (108) 10/10/17 00:38 99.3 69 17 212/91 (131) 96 10/09/17 20:33 95 10/09/17 20:32 99.0 83 17 180/86 (117) 94 10/09/17 20:00 90 10/09/17 15:18 98.2 66 18 166/78 (107) 98 10/09/17 11:13 98.3 70 18 179/84 (115) 99 I/O 10/09/17 10/09/17 10/09/17 10/10/17 10/10/17 10/10/17 07:00 15:00 23:00 07:00 15:00 23:00 Intake Total 480 ml 740 ml Balance 480 ml 740 ml Intake Oral 480 ml 740 ml # Voids 2 Result Diagram: 10/09/17 0601 10/09/17 0601 Objective Remarks GENERAL: in NAD CARDIOVASCULAR: Regular rate and rhythm without murmurs, gallops, or rubs. + JVD. RESPIRATORY: Breath sounds equal bilaterally. No accessory muscle use. GASTROINTESTINAL: Abdomen soft, non-tender, nondistended. MUSCULOSKELETAL: Trace edema. Medications and IVs Current Medications Sodium Chloride (NS Flush) 2 ml UNSCH PRN IV FLUSH FLUSH AFTER USING IV ACCESS ; Start 10/07/17 at 23:00 Sodium Chloride (NS Flush) 2 ml BID IV FLUSH Last administered on 10/09/17at 20: 54; Start 10/08/17 at 09:00 Acetaminophen (Tylenol) 650 mg Q4H PRN PO TEMP > 100.4 or headeache Last administered on 10/08/17at 11:37; Start 10/07/17 at 23:00 Ondansetron HCl (Zofran Inj) 4 mg Q6H PRN IVP NAUSEA OR VOMITING; Start at 23:00 Naloxone HCl (Narcan Inj) 0.4 mg UNSCH PRN IV PUSH SEE LABEL COMMENTS; Start at 23:00 Magnesium Hydroxide (Milk Of Magnesia Liq) 30 ml Q12H PRN PO Mild constipation ; Start 10/07/17 at 23:00 Sennosides (Senokot) 17.2 mg Q12H PRN PO Moderate constipation; Start 10/07/17 at 23:00 Bisacodyl (Dulcolax Supp) 10 mg DAILY PRN RECTAL SEVERE CONSITIPATION/ IF NPO; Start 10/07/17 at 23:00 Lactulose (Lactulose Liq) 30 ml DAILY PRN PO SEVERE CONSITIPATION / IF PO; Start 10/07/17 at 23:00 Furosemide (Lasix Inj) 40 mg BID@18 IV PUSH ; Start 10/08/17 at 09:00; Stop at 09:00; Status DC Apixaban (Eliquis) 2.5 mg BID PO Last administered on 10/09/17at 20:51; Start 10/07/17 at 23:15; Stop 10/10/17 at 09:02; Status DC Carvedilol (Coreg) 25 mg BID PO Last administered on 10/09/17 20:51; Start 10/07 at 23:15 Hydralazine HCl (Apresoline) 50 mg BID PO Last administered on 10/09/17 20:51; Start 10/07/17 at 23:15 Insulin Detemir (Levemir Inj) 24 units DAILY SQ Last administered on 10/09/17at 08:19; Start 10/08/17 at 09:00 Levothyroxine Sodium (Synthroid) 112 mcg DAILY@0700 PO Last administered on 10/10at 08:03; Start 10/08/17 at 07:00 Lidocaine HCl (Lidoderm 5% Patch.12 Hr) 1 patch DAILY T-DERMAL Last administered on 10/09/17at 08:20; Start 10/08/17 at 09:00 Pravastatin Sodium (Pravachol) 80 mg HS PO Last administered on 10/09/17at 20:54 ; Start 10/07/17 at 23:15 Dextrose (D50w (Vial) Inj) 50 ml UNSCH PRN IV PUSH HYPOGLYCEMIA-SEE COMMENTS; Start 10/07/17 at 23:15 Glucagon (Glucagon Inj) 1 mg UNSCH PRN OTHER HYPOGLYCEMIA-SEE COMMENTS; Start 10/07/17 at 23:15 Insulin Aspart (NovoLOG SUPPLEMENTAL SCALE) 1 ACHS SLIDING SCALE SQ Last administered on 10/09/17at 12:00; Start 10/08/17 at 08:00 Furosemide (Lasix Inj) 40 mg BID@18 IV PUSH Last administered on 10/09/17at 17 :18; Start 10/08/17 at 09:00 Potassium Chloride (KCl) 20 meq ONCE ONCE PO Last administered on 10/08/17at 08: 37; Start 10/08/17 at 07:45; Stop 10/08/17 at 07:46; Status DC Clonidine (Catapres) 0.1 mg ONCE ONCE PO Last administered on 10/09/17at 05:02; Start 10/09/17 at 04:15; Stop 10/09/17 at 04:16; Status DC Clonidine (Catapres) 0.1 mg ONCE ONCE PO Last administered on 10/10/17at 01:13; Start 10/10/17 at 01:00; Stop 10/10/17 at 01:01; Status DC Apixaban (Eliquis) 5 mg BID PO ; Start 10/10/17 at 09:00 Amlodipine Besylate (Norvasc) 5 mg DAILY PO ; Start 10/10/17 at 10:00 A/P Assessment and Plan This is a 62-year-old female presented with SOB and increased lower extremity edema CHF exacerbation -Chest x-ray significant for pulmonary edema with small effusions. -BNP 1840 -Given patient's comorbidity of chronic renal disease, IV Bumex would be ideal for diuresis however this medication is currently out of stock. -Clinically symptoms are improving drastically. -Echo reviewed significant for right apical thrombus, severe regurgitation, moderate to severe pulmonary hypertension with no signs of tamponade on. Moderate amount of left-sided pleural effusion. EF is 50-55%. -Will switch to oral Bumex. Exertional dyspnea -This has improved, but she continues to have the symptoms. Initially she was treated for CHF with improvement. -Based on echo patient does have moderate to severe pulmonary hypertension with severe regurgitation. Also has a right apical thrombus despite being on Eliquis for 2 years. Will get a VQ scan stat. Consult recreational specialist secondary to pulmonary hypertension. -Increased dose of Eliquis to 5 mg by mouth twice a day. Pulmonary HTN -consult Pulm see above. Uncontrolled HTN -patient BP has been treating. Will add amlodipine. Will monitor and adjust accordingly. Chronic kidney disease -Creatinine 3.80, which is baseline for the patient -Monitor renal function -Avoid nephrotoxins. -Strict ins and outs. Continue to monitor creatinine. A fib -In light of findings on echo showing right apical thrombus despite being on Eliquis. Eliquis was recently decreased to 2.5 mg by mouth twice a day. We will increase it back to 5 mg by mouth twice a day. Unsure if she failed eliquis treatment or due to decrease to dosage but will consult specification writer for further recommendation. Insulin-dependent diabetes mellitus -Continue home Levemir -SSI -Monitor blood glucose Hypertension/hyperlipidemia -Continue home medications DVT prophylaxis -On Eliquis. Florencia Blair MD Oct 10, 2017 09:30
[2017-10-10] MEDS: amLODIPine BESYLATE 5 MG TAB PO SCH (10:00)
--- NOTE | 2017-10-10 10:10 | RADRPT ---
EXAM DATE/TIME: 10/10/2017 09:31 [facility] COMPARISON: CHEST PA & LAT, July 01, 2017, 22:42. INDICATIONS : Shortness of breath. MEDICAL HISTORY : Hypertension. Cardiovascular disease. Diabetes mellitus type II. CHF SURGICAL HISTORY : section. ENCOUNTER: Subsequent ACUITY: 2 weeks PAIN SCORE: 0/10 LOCATION: Bilateral chest FINDINGS: Cardiomegaly with moderate interstitial edema without pleural effusion. There is no consolidation. The portion of the bony skeleton visualized is unremarkable. CONCLUSION: Moderate congestive failure Henry Barker MD FACR on October 10, 2017 at 10:03 Board Certified Radiologist. This report was verified electronically.
--- NOTE | 2017-10-10 11:11 | RADRPT ---
EXAM DATE/TIME: 10/10/2017 09:43 [facility] COMPARISON: CHEST PA & LAT, October 10, 2017, 9:31. INDICATIONS : Short of brerath. DOSE: 8.1 mCi Tc99m MAA IV 30.1 mCi Tc99m DTPA aerosol MEDICAL HISTORY : Hypertension. Diabetes mellitus type 2. Myocardial infarction. SURGICAL HISTORY : section. ENCOUNTER: Initial ACUITY: 1 day PAIN SCALE: 1/10 LOCATION: Bilateral chest TECHNIQUE: Following five minutes of tidal breathing of DTPA aerosol, planar images of the lungs were performed in eight projections. The patient was then injected with MAA, and eight-view perfusion scan was perf ormed. FINDINGS: There is a homogeneous pattern of aerosol delivery to the periphery of both lungs. No focal ventilat ory defects are seen. The perfusion lung scan demonstrates a homogenous pattern of uptake in both lungs. No segmental or s ubsegmental defects are seen. CONCLUSION: Low probability for pulmonary embolism. Sagar Monk MD on October 10, 2017 at 11:09 Board Certified Radiologist. This report was verified electronically.
[2017-10-10] MEDS: ACETAMINOPHEN 325 MG TAB PO PRN (11:59)
[2017-10-10 12:00] LABS: WHITE BLOOD COUNT 4.4 TH/MM3 (4.0-11.0)
[2017-10-10 12:01] LABS: AUTOMATED NEUTROPHIL # 2.9 TH/MM3 (1.8-7.7); BASOPHIL % 0.4 % (0.0-2.0); EOSINOPHIL # 0.1 TH/MM3 (0-0.4); HEMATOCRIT 30.7 % (35.0-46.0); HEMOGLOBIN 10.3 GM/DL (11.6-15.3); LYMPH % 22.7 % (9.0-44.0); MEAN CELL VOLUME 89.7 FL (80.0-100.0); MEAN CORPUSCULAR HEMOGLOBIN 30.1 PG (27.0-34.0); MEAN CORPUSCULAR HGB CONC 33.5 % (32.0-36.0); MONO % 9.6 % (0.0-8.0); MONOCYTE # 0.4 TH/MM3 (0-0.9); NEUT % 65.3 % (16.0-70.0); PLATELET COUNT 149 TH/MM3 (150-450); RED BLOOD COUNT 3.42 MIL/MM3 (4.00-5.30); RED CELL DISTRIBUTION WIDTH 14.9 % (11.6-17.2)
[2017-10-10 12:09] LABS: BICARBONATE 29.3 MEQ/L (21.0-32.0); CALCIUM 8.9 MG/DL (8.5-10.1); CREATININE 3.15 MG/DL (0.50-1.00)
[2017-10-10] MEDS ORDERED: POTASSIUM CHLORIDE 20 MEQ CONTROLLED RELEASE TAB PO ONE (13:15)
[2017-10-10] MEDS: LIDOCAINE HCL 5% PATCH T-DERMAL SCH (14:23)
[2017-10-10] MEDS: BUMETANIDE 1 MG TAB PO SCH (18:10)
[2017-10-10] MEDS: PRAVASTATIN SOD 80 MG TAB PO SCH (21:37)
[2017-10-10 22:21] LABS: % SATURATION IRON PROFILE 15.4 % (20-50); IRON (FE) 49 MCG/DL (50-170); TOTAL IRON BINDING CAPACITY 319 MCG/DL (250-450)
[2017-10-10 22:46] LABS: FERRITIN 256 NG/ML (8-252); FOLATE 19.9 NG/ML (3.1-17.5)
[2017-10-10 22:59] LABS: RHEUMATOID FACTOR SCREEN NEGATIVE (NEGATIVE)
[2017-10-11 00:07] VITALS: PULSE 83
[2017-10-11 04:29] VITALS: BP 151/74; PULSE 67; RESP 18; TEMP 98; O2SAT 95
--- NOTE | 2017-10-11 05:41 | MB ---
cc: MONICO VALERO DATE OF CONSULTATION 10/10/[address] Florencia Blair REASON FOR CONSULTATION Evaluation of pulmonary hypertension. HISTORY OF PRESENT ILLNESS Ms. Blackwell is a 62-year-old -[place] female with history of hypertension, diabetes mellitus, chronic kidney disease. She was on hemodialysis for about a year or so and she is off dialysis. She follows with senior research fellow, Dr. Solis. The patient came to the hospital with increasing shortness of breath and increasing swelling in her legs. She had an echocardiogram done which shows her EF is 60-65% and her RVSP on echocardiogram is 67. She admits to increasing shortness of breath and some orthopnea; no DVT or pulmonary embolism. PAST MEDICAL HISTORY 1. History of history of cardiac catheterization. 2. Hypertension. 3. Diabetes mellitus. 4. CVA. She has left-sided weakness which has improved. H 5. History of chronic kidney disease. She was on dialysis and has been taken off from dialysis. 6. History of . MEDICATIONS She is currently taking -the max 1 mg twice a day. 1. Bumex 1 mg twice per day. 2. Potassium 20 mg. 3. Amlodipine 5 mg a day. 4. Eliquis 5 mg twice a day. 5. She is on insulin, Levemir 25 units a day. 6. Lidoderm patch. 7. Coreg 25 mg twice a day. 8. Pravastatin 80 mg daily. 9. Hydralazine 50 mg twice a day. ALLERGIES ASPIRIN. IBUPROFEN. SOCIAL HISTORY She is , worked as a teacher. No significant smoking or alcohol abuse. FAMILY HISTORY She has four children; one is disabled. REVIEW OF SYSTEMS Normally she is up and active. Weight is stable. No DVT, pulmonary embolism. No seizure or epilepsy. Did have a stroke. PHYSICAL EXAMINATION GENERAL: A pleasant elderly female, not in acute distress. VITAL SIGNS: Blood pressure 116/57, heart rate 76, respirations 20. Temperature 99. HEENT EXAMINATION: Pupils are equal and react to light. Oral mucosa, nasal mucosa normal. NECK: Supple. JVP not raised. CHEST: Equal bilateral air movement bilaterally. No rhonchi. Has basilar rales. CV: S1 and S2 normal. ABDOMEN: Benign. EXTREMITIES: 1+ pedal edema. IMPRESSION 1. Shortness of breath due to congestive heart failure. 2. Pulmonary hypertension. Her VQ scan is positive for pulmonary embolism. Has no significant smoking. No obvious interstitial lung disease. Need to rule out the possibility of rheumatological disorder but has no known arthritis or lupus. 3. Hypertension. 4. Diabetes mellitus. 5. Chronic kidney disease. She was on hemodialysis before. 6. History of CVA. PLAN 1. I discussed with the patient we will check her sed rate, ARMANDO, rheumatoid factor, pulmonary function studies. She is stable on room air, being diuresed. 2. Monitor her electrolytes. 3. Further treatment will depend on her course in the hospital. Thank you, Dr. Florencia Blair, for this consult. Monico Valero MD ADA/SSB /7:48 PM /5:16 AM
[2017-10-11] MEDS: LEVOTHYROXINE SODIUM 112 MCG TAB PO SCH (06:29)
[2017-10-11 06:44] LABS: HEMATOCRIT 28.2 % (35.0-46.0); HEMOGLOBIN 9.5 GM/DL (11.6-15.3); MEAN CELL VOLUME 88.5 FL (80.0-100.0); MEAN CORPUSCULAR HEMOGLOBIN 29.7 PG (27.0-34.0); MEAN CORPUSCULAR HGB CONC 33.6 % (32.0-36.0); MEAN PLATELET VOLUME 10.2 FL (7.0-11.0); PLATELET COUNT 156 TH/MM3 (150-450); RED BLOOD COUNT 3.19 MIL/MM3 (4.00-5.30); RED CELL DISTRIBUTION WIDTH 14.9 % (11.6-17.2); WHITE BLOOD COUNT 4.6 TH/MM3 (4.0-11.0)
[2017-10-11 07:06] VITALS: BP 121/58; PULSE 77; RESP 16; TEMP 98.1; O2SAT 96
[2017-10-11 07:12] LABS: BICARBONATE 27.1 MEQ/L (21.0-32.0); CALCIUM 8.8 MG/DL (8.5-10.1); CREATININE 3.23 MG/DL (0.50-1.00)
--- NOTE | 2017-10-11 07:50 | PD.CONS ---
HPI Consult Requested By Primary Care Physician Edson Morris MD History of Present Illness 62-year-old female with a past medical history significant for diastolic CHF EF of 50-55%, pulmonary hypertension, hypertension, diabetes mellitus, hyperlipidemia, chronic kidney disease and history of CVA who was sent by PCP for possible CHF exacerbation. The patient is no longer following with cardiology as outpatient. The patient states that she had been having progressive shortness of breath and lower extremity swelling despite being on diuretics. She has received IV Lasix here for shortness of breath and leg swelling are improving. She complains of intermittent chest pain that has been chronic and unchanged for several years. Complains of chronic palpitations for which she takes carvedilol for. She has history of atrial fibrillation and is on Eliquis. The patient had an echocardiogram which showed an apparent right ventricular apical thrombus while on anticoagulation. Hematology was consulted and recommended cardiology evaluation. (Chris Thomas) Review of Systems Patient is pleasant but not a good historian. Review of systems negative except as stated in the history of present illness (Chris Thomas) Past Family Social History Allergies: Coded Allergies: ibuprofen (Verified Allergy, Severe, SWELLING, 10/07/17) aspirin (Verified Adverse Reaction, Intermediate, UPSETS STOMACH, 10/07/17) Past Medical History Diastolic CHF Pulmonary hypertension Hypertension Insulin-dependent diabetes mellitus Hyperlipidemia CKD History of CVA Past Surgical History Cardiac catheterization several years ago after stroke, patient unsure if any intervention was done at the time Reported Medications Reported Meds & Active Scripts Active Bumetanide 1 Mg Tab 1 Mg PO BID Eliquis (Apixaban) 2.5 Mg Tab 2.5 Mg PO BID Carvedilol 25 Mg Tab 25 Mg PO BID Reported Bumetanide 1 Mg Tab 1 Mg PO DAILY Lantus Inj (Insulin Glargine) 1,000 Unit/10 Ml Vial 24 Units SQ DAILY Novolog Penfill Inj (Insulin Aspart) 300 Unit/3 Ml Pen 10 Units SQ HS PRN Nitroglycerin SL (Nitroglycerin) 0.4 Mg Subl 0.4 Mg SL DIRECTED PRN ONE TABLET UNDER THE TONGUE NEEDED FOR CHEST PAIN, MAY REPEAT EVERY FIVE MINUTES FOR A TOTAL OF 3 DOSES OR CALL 911 IF NO RELIEF Pravastatin 80 Mg Tab 80 Mg PO HS Hydralazine (Hydralazine HCl) 100 Mg Tab 50 Mg PO BID Take with meals Calcitriol 0.5 Mcg Cap 0.5 Mcg PO DAILY Lasix (Furosemide) 40 Mg Tab 40 Mg PO DAILY Lidocaine Patch 12 HR (Lidocaine) 5 % Patch 1 Patch TOPICAL DAILY Remove patch after 12 hours Levothyroxine (Levothyroxine Sodium) 112 Mcg Tab 112 Mcg PO DAILY Active Ordered Medications Current Medications Medications (Trade) Dose Ordered Sig/Saad Route Start Time Stop Time Status Last Admin (NS Flush) 2 ml UNSCH PRN IV FLUSH 10/07/17 23:00 (NS Flush) 2 ml BID IV FLUSH 10/08/17 09:00 10/10/17 21:37 (Tylenol) 650 mg Q4H PRN PO 10/07/17 23:00 10/10/17 11:59 (Zofran Inj) 4 mg Q6H PRN IVP 10/07/17 23:00 (Narcan Inj) 0.4 mg UNSCH PRN IV PUSH 10/07/17 23:00 (Milk Of Magnesia Liq) 30 ml Q12H PRN PO 10/07/17 23:00 (Senokot) 17.2 mg Q12H PRN PO 10/07/17 23:00 (Dulcolax Supp) 10 mg DAILY PRN RECTAL 10/07/17 23:00 (Lactulose Liq) 30 ml DAILY PRN PO 10/07/17 23:00 (Coreg) 25 mg BID PO 10/07/17 23:15 10/10/17 21:38 (Apresoline) 50 mg BID PO 10/07/17 23:15 10/10/17 21:37 (Levemir Inj) 24 units DAILY SQ 10/08/17 09:00 10/10/17 09:00 (Synthroid) 112 mcg DAILY@0700 PO 10/08/17 07:00 10/11/17 06:29 (Lidoderm 5% Patch.12 Hr) 1 patch DAILY T-DERMAL 10/08/17 09:00 10/10/17 14:23 (Pravachol) 80 mg HS PO 10/07/17 23:15 10/10/17 21:37 (D50w (Vial) Inj) 50 ml UNSCH PRN IV PUSH 10/07/17 23:15 (Glucagon Inj) 1 mg UNSCH PRN OTHER 10/07/17 23:15 (NovoLOG SUPPLEMENTAL SCALE) 1 ACHS SLIDING SCALE SQ 10/08/17 08:00 10/10/17 21:39 (Eliquis) 5 mg BID PO 10/10/17 09:00 10/10/17 21:37 (Norvasc) 5 mg DAILY PO 10/10/17 10:00 10/10/17 10:00 (Bumetanide) 1 mg BID@,18 PO 10/10/17 18:00 10/10/17 18:10 (KCl) 20 meq DAILY PO 10/11/17 09:00 Family History Both parents with hypertension. Social History Denies alcohol, tobacco or illicit drugs (Chris Thomas) Physical Exam Vital Signs Vital Signs Date Time Temp Pulse Resp B/P (MAP) Pulse Ox O2 Delivery O2 Flow Rate FiO2 10/11/17 07:06 98.1 77 16 121/58 (79) 96 10/11/17 04:29 98.0 67 18 151/74 (99) 95 10/11/17 00:07 83 10/10/17 23:41 98.4 72 18 133/63 (86) 97 10/10/17 20:08 71 10/10/17 16:11 99.0 76 20 116/57 (76) 94 10/10/17 13:54 97.7 74 20 112/56 (74) 95 10/10/17 13:04 22 10/10/17 07:59 97.9 66 20 183/88 (119) 95 Physical Exam GENERAL: Well-developed well-nourished. In no acute distress. NECK: No carotid bruits. No JVD. CARDIOVASCULAR: Regular rate and rhythm. No murmur appreciated. RESPIRATORY: No accessory muscle use. Clear to auscultation. Breath sounds equal bilaterally. MUSCULOSKELETAL: No clubbing or cyanosis. No edema. NEUROLOGICAL: Awake and alert. Normal speech. Laboratory Laboratory Tests Test 10/10/17 11:36 10/10/17 21:36 10/11/17 05:30 White Blood Count 4.4 4.6 Red Blood Count 3.42 3.19 Hemoglobin 10.3 9.5 Hematocrit 30.7 28.2 Mean Corpuscular Volume 89.7 88.5 Mean Corpuscular Hemoglobin 30.1 29.7 Mean Corpuscular Hemoglobin Concent 33.5 33.6 Red Cell Distribution Width 14.9 14.9 Platelet Count 149 156 Mean Platelet Volume 10.0 10.2 Neutrophils (%) (Auto) 65.3 Lymphocytes (%) (Auto) 22.7 Monocytes (%) (Auto) 9.6 Eosinophils (%) (Auto) 2.0 Basophils (%) (Auto) 0.4 Neutrophils # (Auto) 2.9 Lymphocytes # (Auto) 1.0 Monocytes # (Auto) 0.4 Eosinophils # (Auto) 0.1 Basophils # (Auto) 0.0 CBC Comment DIFF FINAL Differential Comment Blood Urea Nitrogen 48 47 Creatinine 3.15 3.23 Random Glucose 68 55 Calcium Level 8.9 8.8 Sodium Level 143 143 Potassium Level 3.3 3.4 Chloride Level 106 109 Carbon Dioxide Level 29.3 27.1 Anion Gap 8 7 Estimat Glomerular Filtration Rate 18 18 Iron Level 49 Total Iron Binding Capacity 319 Percent Iron Saturation 15.4 Ferritin 256 Vitamin B12 Level 773 Folate 19.9 Erythrocyte Sedimentation Rate 39 Rheumatoid Factor Screen NEGATIVE Rheumatoid Factor Titer (Chris Thomas) Result Diagram: 10/11/17 0530 10/11/17 0530 Imaging Last Impressions Lung Scan-VQ Nuclear Medicine 10/10/17 0000 Signed Impressions: Service Date/Time: Tuesday, October 10, 2017 09:43 - CONCLUSION: Low probability for pulmonary embolism. Sagar Monk MD Chest X-Ray 10/10/17 0000 Signed Impressions: Service Date/Time: Tuesday, October 10, 2017 09:31 - CONCLUSION: Moderate congestive failure Henry Barker MD FACR (Chris Thomas) Assessment and Plan Assessment and Plan 62-year-old female with a past medical history significant for diastolic CHF EF of 50-55%, pulmonary hypertension, hypertension, diabetes mellitus, hyperlipidemia, chronic kidney disease and history of CVA who was sent by PCP for possible CHF exacerbation. The patient is no longer following with cardiology as outpatient. The patient states that she had been having progressive shortness of breath and lower extremity swelling despite being on diuretics. She has received IV Lasix here for shortness of breath and leg swelling are improving. She complains of intermittent chest pain that has been chronic and unchanged for several years. Complains of chronic palpitations for which she takes carvedilol for. She has history of atrial fibrillation and is on Eliquis. The patient had an echocardiogram which showed an apparent right ventricular apical thrombus while on anticoagulation. Hematology was consulted and recommended cardiology evaluation. Echocardiogram with normal systolic function, EF 50 55%, moderate MR, trace AR, severe TR, moderate severe pulmonary hypertension. Diastolic CHF exacerbation: Symptoms improving with IV Lasix. Monitor I's and O 's. Atrial fibrillation: Currently in NSR. Currently on Eliquis. Right ventricular apical thrombus: Seen on echo. Hematology consulted, workup in progress. Pulmonary hypertension: Pulmonology on board. Diuretics as above. CKD stage IV: caution with diuresis. (Chris Thomas) Assessment and Plan RV thrombus - prior echo 07/02/2017 no RV thrombus. severe PHTN. thrombus on anticoagulation vs trabeculae? Proceed with CHRISTO today for definitive diagnosis. moderate MR - mild-mod in 2017. physical examination sounds severe. Moderate on TTE. PHTN likely intrinsic component, but mitral regurgitation may be contributing. CHRISTO will show anatomically what is wrong with the valve afib - h/o CVA on anticoagulation CHF - diastolic + valvular. improved with diuresis. monitor I/O and Cr. (Connor Rodgers MD) Chris Thomas Oct 11, 2017 07:50 Connor Rodgers MD Oct 11, 2017 08:48
[2017-10-11] MEDS: INSULIN ASPART SUPPLEMENTAL SCALE SQ SCH ×4 (08:00→21:16)
--- NOTE | 2017-10-11 08:40 | MB ---
cc: LELAND GAXIOLA MD DATE OF CONSULTATION 10/10/2017 CHIEF COMPLAINT 1. Congestive heart failure 2. Atrial fibrillation 3. Long-term anticoagulation per the above with Eliquis and previous warfarin therapy. HISTORY OF PRESENT ILLNESS The patient is a 62-year-old lady with a history of congestive heart failure, hypertension, diabetes, hyperlipidemia, chronic renal disease, history of CVA who presents to the emergency department with congestive heart failure exacerbation and shortness of breath. This was mild and had been tkaing place over several days prior to admission. No other assoicated factors. Her primary home care music therapist was concerned about volume overload and he referred her to the hospital. Echocardiogram from admission with left ventricular systolic function low-normal and estimated in the range of 50-55%. Ventricular apical thrombus is present. The patient reports that she has VQ scans with low probability for PE. The patient reports that she had previously been on Warfarin therapy and this was transitioned several years ago to Eliquis. She is uncertain of the reason for this change in anticoagulation. She had previously been on full intensity Eliquis at 5 mg twice daily, however this was recently switched to 2.5 mg twice daily due to recent nosebleed. PAST MEDICAL HISTORY 1. Congestive heart failure with preserved ejection fraction. 2. Hypertension 3. Insulin-dependent diabetes 4. Hyperlipidemia 5. Chronic kidney disease 6. History of CVA. PAST SURGICAL HISTORY 1. 2. Cardiac catheterization FAMILY HISTORY family history of vascular disease including coronary artery disease, strokes and hypertension. SOCIAL HISTORY No tobacco, alcohol or illegal drug use. Good support system. PHYSICAL EXAM GENERAL: This is a well-developed, well-nourished lady sitting up at the bedside. SKIN: With no rashes or lesions from edema present on the anterior shins. HEAD: Normocephalic, atraumatic. EYES, EARS, NOSE AND THROAT: Pupils equal round react to light and accommodation. Extraocular muscles intact. NECK: Supple with no palpable lymphadenopathy. CARDIOVASCULAR: Regular rate and rhythm. RESPIRATORY: Clear to auscultation bilaterally. ABDOMEN: Soft, nontender, nondistended. NEUROLOGIC: Appropriate mood and affect. Grossly nonfocal. ASSESSMENT/PLAN Right ventricular thrombosis: The patient will need full intensity anticoagulation. Warfarin is the most studied in this patient population. She has previously been on Warfarin, but was switched to Eliquis for unclear reasons. If she remains on Eliquis, she will need to be on full dose I have also place a consult for psychiatric clinician to weigh in on appropriate method of anticoagulation and length of anticoagulation. Anemia. We will check iron profile, B12, folate, suspect that chronic renal disease is certainly contributing MD PAULA Darling/CASIE /8:43 PM /8:27 AM MTDPrudence
[2017-10-11] MEDS: INSULIN DETEMIR 100 UNITS/ML VIAL SQ SCH (09:00)
[2017-10-11] MEDS: POTASSIUM CHLORIDE 20 MEQ CONTROLLED RELEASE TAB PO SCH (09:00)
[2017-10-11] MEDS: CARVEDILOL 12.5 MG TAB PO SCH ×2 (09:00→20:37)
[2017-10-11] MEDS: BUMETANIDE 1 MG TAB PO SCH ×2 (09:40→17:18)
[2017-10-11] MEDS: amLODIPine BESYLATE 5 MG TAB PO SCH (09:41)
[2017-10-11] MEDS: LIDOCAINE HCL 5% PATCH T-DERMAL SCH (09:41)
[2017-10-11] MEDS: APIXABAN 5 MG TABLET PO SCH ×2 (09:41→20:40)
[2017-10-11] MEDS: hydrALAZINE HCL 100 MG TAB PO SCH ×2 (09:41→20:40)
[2017-10-11] MEDS: SODIUM CHLORIDE 0.9% FLUSH 10 ML FLUSH IV FLUSH SCH ×2 (09:42→20:36)
--- NOTE | 2017-10-11 09:47 | HHI.PR ---
Subjective Remarks Follow-up for shortness of breathing and atrial thrombus Patient stated that breathing has improved. She denies any chest pain, palpitation, lightheadedness or dizziness. Discussed case with patient's nurse Em. Objective Vitals Vital Signs Date Time Temp Pulse Resp B/P (MAP) Pulse Ox O2 Delivery O2 Flow Rate FiO2 10/11/17 07:06 98.1 77 16 121/58 (79) 96 10/11/17 04:29 98.0 67 18 151/74 (99) 95 10/11/17 00:07 83 10/10/17 23:41 98.4 72 18 133/63 (86) 97 10/10/17 20:08 71 10/10/17 16:11 99.0 76 20 116/57 (76) 94 10/10/17 13:54 97.7 74 20 112/56 (74) 95 10/10/17 13:04 22 Result Diagram: 10/11/17 0530 10/11/17 0530 Objective Remarks GENERAL: in NAD CARDIOVASCULAR: Regular rate and rhythm without murmurs, gallops, or rubs. + JVD. RESPIRATORY: Breath sounds equal bilaterally. No accessory muscle use. GASTROINTESTINAL: Abdomen soft, non-tender, nondistended. MUSCULOSKELETAL: Trace edema. Medications and IVs Current Medications Sodium Chloride (NS Flush) 2 ml UNSCH PRN IV FLUSH FLUSH AFTER USING IV ACCESS ; Start 10/07/17 at 23:00 Sodium Chloride (NS Flush) 2 ml BID IV FLUSH Last administered on 10/10/17at 21: 37; Start 10/08/17 at 09:00 Acetaminophen (Tylenol) 650 mg Q4H PRN PO TEMP > 100.4 or headeache Last administered on 10/10/17at 11:59; Start 10/07/17 at 23:00 Ondansetron HCl (Zofran Inj) 4 mg Q6H PRN IVP NAUSEA OR VOMITING; Start at 23:00 Naloxone HCl (Narcan Inj) 0.4 mg UNSCH PRN IV PUSH SEE LABEL COMMENTS; Start at 23:00 Magnesium Hydroxide (Milk Of Magnesia Liq) 30 ml Q12H PRN PO Mild constipation ; Start 10/07/17 at 23:00 Sennosides (Senokot) 17.2 mg Q12H PRN PO Moderate constipation; Start 10/07/17 at 23:00 Bisacodyl (Dulcolax Supp) 10 mg DAILY PRN RECTAL SEVERE CONSITIPATION/ IF NPO; Start 10/07/17 at 23:00 Lactulose (Lactulose Liq) 30 ml DAILY PRN PO SEVERE CONSITIPATION / IF PO; Start 10/07/17 at 23:00 Furosemide (Lasix Inj) 40 mg BID@,18 IV PUSH ; Start 10/08/17 at 09:00; Stop at 09:00; Status DC Apixaban (Eliquis) 2.5 mg BID PO Last administered on 10/09/17 20:51; Start 10/07/17 at 23:15; Stop 10/10/17 at 09:02; Status DC Carvedilol (Coreg) 25 mg BID PO Last administered on 10/10/17 21:38; Start 10/07 at 23:15 Hydralazine HCl (Apresoline) 50 mg BID PO Last administered on 10/10/17 21:37; Start 10/07/17 at 23:15 Insulin Detemir (Levemir Inj) 24 units DAILY SQ Last administered on 10/10/17 09:00; Start 10/08/17 at 09:00 Levothyroxine Sodium (Synthroid) 112 mcg DAILY@0700 PO Last administered on 10/11 06:29; Start 10/08/17 at 07:00 Lidocaine HCl (Lidoderm 5% Patch.12 Hr) 1 patch DAILY T-DERMAL Last administered on 10/10/17at 14:23; Start 10/08/17 at 09:00 Pravastatin Sodium (Pravachol) 80 mg HS PO Last administered on 10/10/17 21:37 ; Start 10/07/17 at 23:15 Dextrose (D50w (Vial) Inj) 50 ml UNSCH PRN IV PUSH HYPOGLYCEMIA-SEE COMMENTS; Start 10/07/17 at 23:15 Glucagon (Glucagon Inj) 1 mg UNSCH PRN OTHER HYPOGLYCEMIA-SEE COMMENTS; Start 10/07/17 at 23:15 Insulin Aspart (NovoLOG SUPPLEMENTAL SCALE) 1 ACHS SLIDING SCALE SQ Last administered on 10/10/17at 21:39; Start 10/08/17 at 08:00 Furosemide (Lasix Inj) 40 mg BID@,18 IV PUSH Last administered on 10/09/17 17 :18; Start 10/08/17 at 09:00; Stop 10/10/17 at 09:41; Status DC Potassium Chloride (KCl) 20 meq ONCE ONCE PO Last administered on 10/08/17at 08: 37; Start 10/08/17 at 07:45; Stop 10/08/17 at 07:46; Status DC Clonidine (Catapres) 0.1 mg ONCE ONCE PO Last administered on 10/09/17at 05:02; Start 10/09/17 at 04:15; Stop 10/09/17 at 04:16; Status DC Clonidine (Catapres) 0.1 mg ONCE ONCE PO Last administered on 10/10/17at 01:13; Start 10/10/17 at 01:00; Stop 10/10/17 at 01:01; Status DC Apixaban (Eliquis) 5 mg BID PO Last administered on 10/10/17at 21:37; Start at 09:00 Amlodipine Besylate (Norvasc) 5 mg DAILY PO Last administered on 10/10/17at 10:00 ; Start 10/10/17 at 10:00 Bumetanide (Bumetanide) 1 mg BID@18 PO Last administered on 10/10/17at 18:10; Start 10/10/17 at 18:00 Potassium Chloride (KCl) 40 meq ONCE ONCE PO Last administered on 10/10/17at 13: 15; Start 10/10/17 at 13:15; Stop 10/10/17 at 13:24; Status DC Potassium Chloride (KCl) 20 meq DAILY PO ; Start 10/11/17 at 09:00 A/P Assessment and Plan This is a 62-year-old female presented with SOB and increased lower extremity edema CHF exacerbation -Chest x-ray significant for pulmonary edema with small effusions. -BNP 1840 -Given patient's comorbidity of chronic renal disease, IV Bumex would be ideal for diuresis however this medication is currently out of stock. -Clinically symptoms are improving drastically. -Echo reviewed significant for right apical thrombus, severe regurgitation, moderate to severe pulmonary hypertension with no signs of tamponade. Moderate amount of left-sided pleural effusion. EF is 50-55%. -Now on oral Bumex 1 mg by mouth twice a day. Exertional dyspnea -This has improved, but she continues to have the symptoms. Initially she was treated for CHF with improvement. -Based on echo patient does have moderate to severe pulmonary hypertension with severe regurgitation. Also has a right apical thrombus despite being on Eliquis for 2 years. VQ scan is negative. -Eliquis was increased to 5 mg by mouth twice a day on 10/10. Pulmonary HTN, moderate to severe -Technology Intern consulted. Appreciate recommendations. Rheumatological workup is being done. Uncontrolled HTN -Amlodipine was added yesterday now controlled. Chronic kidney disease -Creatinine 3.80, which is baseline for the patient. Creatinine now 3.23. -Monitor renal function -Avoid nephrotoxins. -Strict ins and outs. Continue to monitor creatinine. A fib -In light of findings on echo showing right apical thrombus despite being on Eliquis. Eliquis was recently decreased to 2.5 mg by mouth twice a day by her PCP. Eliquis was increased on 2/5 mg by mouth twice a day. Unsure if she failed eliquis treatment or due to decrease to dosage so practical nurse clinical coordinator was consulted. -Appreciate practical nurse clinical coordinator recommendation. Once CHRISTO is completed will speak with practical nurse clinical coordinator. -Line Locator consulted and patient will have a CHRISTO today. Insulin-dependent diabetes mellitus -Continue home Levemir -SSI -Monitor blood glucose Hypertension/hyperlipidemia -Continue home medications DVT prophylaxis -On Eliquis. Discharge Planning Patient scheduled for CHRISTO today. Florencia Blair MD Oct 11, 2017 09:46
[2017-10-11] MEDS ORDERED: PROPOFOL 200 MG/20 ML AMP IV ONE (12:00)
[2017-10-11] MEDS ORDERED: SODIUM CHLORID 0.9% 500 ML IV PRN (12:30)
[2017-10-11] MEDS ORDERED: POVIDONE IODINE 5% (ANTISEPSIS KIT) 4 APPLICATIONS EACH NARE PRN (12:30)
[2017-10-11] MEDS ORDERED: INSULIN HUMAN REGULAR 1,000 UNITS/10 ML VIAL SQ PRN (12:30)
[2017-10-11] MEDS ORDERED: METOPROLOL TARTRATE 25 MG TAB PO PRN (12:30)
[2017-10-11] MEDS ORDERED: CHLORHEXIDINE GLUCONATE 2 % 1 PACK (2 CLOTHS) TOPICAL PRN (12:30)
[2017-10-11] MEDS ORDERED: LACTATED RINGER'S 1000 ML IV PRN (12:30)
[2017-10-11] MEDS ORDERED: MISCELLANEOUS NURSING INFORMATION XX PRN (12:30)
[2017-10-11 14:49] VITALS: BP 112/58; PULSE 85; RESP 18; TEMP 98.7; O2SAT 93
--- NOTE | 2017-10-11 17:24 | ECHRPT ---
Indication: cardiomyopathy CONCLUSIONS Normal left ventricular size. Moderate concentric left ventricular hypertrophy. The left ventricular systolic function is hyperdynamic with an estimated ejection fraction in the ra nge of 65- 70%. The left atrial size is hkemgzvg-rt-gnyxqukp dilated. The right atrial size is moderately dilated. Lpsodwtg-ne-nbtggo mitral valve regurgitation. Calcification of both mitral valve leaflets. Mild thickening of the mitral valve leaflets. Severe mitral annular calcification. Structurally normal tricuspid valve. There is moderate to severe tricuspid valve regurgitation. The estimated pulmonary arterial pressure is 72.4 mmHg. There is estimated severe pulmonary hypertension present ( > 70 mmHg). BP: / HR: Rhythm: MEASUREMENTS (Male / Female) Normal Values Technical Quality: DOPPLER TR Peak Velocity 395.0 cm/s Pulmonary Artery Systolic 72.4 mmHg TR Peak Gradient 62.4 mmHg Right Ventricular Systoli 72.4 mmHg Right Atrial Pressure 10.0 mmHg Medications Complications Proc. Components FINDINGS LEFT VENTRICLE Normal left ventricular size. Moderate concentric left ventricular hypertrophy. The left ventricular systolic function is hyperdynamic with an estimated ejection fraction in the ra nge of 65- 70%. RIGHT VENTRICLE Normal right ventricular size and systolic function. LEFT ATRIUM The left atrial size is tbxiurus-gw-iajtdnwb dilated. RIGHT ATRIUM The right atrial size is moderately dilated. ATRIAL APPENDAGES Normal left atrial appendage size with no evidence of thrombus formation. ATRIAL SEPTUM Normal atrial septal thickness without atrial level shunting by limited color doppler interrogation. AORTA The aortic root and proximal ascending aorta are normal in size on limited imaging. MITRAL VALVE Cmidjxwn-dj-qsbdbh mitral valve regurgitation. Calcification of both mitral valve leaflets. Mild thickening of the mitral valve leaflets. Severe mitral annular calcification. AORTIC VALVE Trileaflet aortic valve. No aortic valve stenosis or regurgitation. TRICUSPID VALVE Structurally normal tricuspid valve. There is moderate to severe tricuspid valve regurgitation. The estimated pulmonary arterial pressure is 72.4 mmHg. There is estimated severe pulmonary hypertension present ( > 70 mmHg). VESSELS The inferior vena cava is normal in size. PULMONARY VALVE No pulmonary valve regurgitation or stenosis. PERICADIUM No pericardial effusion. Connor Rodgers MD, FACC (Electronically Signed) Final Date:11 October 2017 17:23
--- NOTE | 2017-10-11 19:54 | HHI.PR ---
Subjective Remarks 62 YO AA female with SOB,CHF,PHTN PFT sig restrictive and obst disease On RA No CP RF Neg Anxious to go home Objective Vital Signs Vital Signs Date Time Temp Pulse Resp B/P (MAP) Pulse Ox O2 Delivery O2 Flow Rate FiO2 10/11/17 14:49 98.7 85 18 112/58 (76) 93 10/11/17 07:06 98.1 77 16 121/58 (79) 96 10/11/17 04:29 98.0 67 18 151/74 (99) 95 10/11/17 00:07 83 10/10/17 23:41 98.4 72 18 133/63 (86) 97 10/10/17 20:08 71 Result Diagram: 10/11/17 0530 10/11/17 0530 Objective Remarks GENERAL: MBMN AA female, NAD SKIN: Warm and dry. HEAD: Normocephalic. EYES: No scleral icterus. No injection or drainage. NECK: Supple, trachea midline. No JVD or lymphadenopathy. CARDIOVASCULAR: Regular rate and rhythm without murmurs, gallops, or rubs. RESPIRATORY: Breath sounds equal bilaterally. No accessory muscle use. GASTROINTESTINAL: Abdomen soft, non-tender, nondistended. MUSCULOSKELETAL: No cyanosis, or edema. BACK: Nontender without obvious deformity. No CVA tenderness. A/P Assessment and Plan PHTN Dysnoea, low prob VQ Scan Restrictive and obst lung disease DM HTN PLAN: Cont Eliquis monitor BS Will need complete PFT as out pt Check Deacon Somers MD Oct 11, 2017 19:54
[2017-10-11 19:55] VITALS: BP 129/63; PULSE 75; RESP 18; TEMP 98; O2SAT 94
[2017-10-11 20:00] VITALS: PULSE 76
[2017-10-11] MEDS: PRAVASTATIN SOD 80 MG TAB PO SCH (20:37)
[2017-10-12] VITALS: PULSE 66
[2017-10-12 03:26] VITALS: PULSE 66
[2017-10-12 03:28] VITALS: BP 161/77; PULSE 68; RESP 18; TEMP 98.2; O2SAT 95
[2017-10-12] MEDS: LEVOTHYROXINE SODIUM 112 MCG TAB PO SCH (06:17)
[2017-10-12 07:41] VITALS: BP 188/88; PULSE 72; RESP 18; TEMP 98.2; O2SAT 96
[2017-10-12] MEDS: INSULIN ASPART SUPPLEMENTAL SCALE SQ SCH ×2 (08:00→12:49)
--- NOTE | 2017-10-12 08:38 | PD.ONC.PN ---
Subjective Subjective Remarks Resting in bed in no distress. Concerned regarding decreased exercise tolerance. Objective Data Date Time Temp Pulse Resp B/P (MAP) Pulse Ox O2 Delivery O2 Flow Rate FiO2 10/12/17 07:41 98.2 72 18 188/88 (121) 96 10/12/17 03:28 98.2 68 18 161/77 (105) 95 10/12/17 03:26 66 10/12/17 00:00 66 10/11/17 20:00 76 10/11/17 19:55 98.0 75 18 129/63 (85) 94 10/11/17 14:49 98.7 85 18 112/58 (76) 93 Result Diagram: 10/11/1730 10/11/17 0530 Administered Medications Medications (Trade) Dose Ordered Sig/Saad Route PRN Reason Start Time Stop Time Status Last Admin Dose Admin Sodium Chloride (NS Flush) 2 ml BID IV FLUSH 10/08/17 09:00 10/11/17 20:36 Acetaminophen (Tylenol) 650 mg Q4H PRN PO TEMP > 100.4 or headeache 10/07/17 23:00 10/10/17 11:59 Carvedilol (Coreg) 25 mg BID PO 10/07/17 23:15 10/11/17 20:37 Hydralazine HCl (Apresoline) 50 mg BID PO 10/07/17 23:15 10/11/17 20:40 Insulin Detemir (Levemir Inj) 24 units DAILY SQ 10/08/17 09:00 10/11/17 09:00 Levothyroxine Sodium (Synthroid) 112 mcg DAILY@0700 PO 10/08/17 07:00 10/12/17 06:17 Lidocaine HCl (Lidoderm 5% Patch.12 Hr) 1 patch DAILY T-DERMAL 10/08/17 09:00 10/11/17 09:41 Pravastatin Sodium (Pravachol) 80 mg HS PO 10/07/17 23:15 10/11/17 20:37 Insulin Aspart (NovoLOG SUPPLEMENTAL SCALE) 1 ACHS SLIDING SCALE SQ 10/08/17 08:00 10/11/17 21:16 Apixaban (Eliquis) 5 mg BID PO 10/10/17 09:00 10/11/17 20:40 Amlodipine Besylate (Norvasc) 5 mg DAILY PO 10/10/17 10:00 10/11/17 09:41 Bumetanide (Bumetanide) 1 mg BID@18 PO 10/10/17 18:00 10/11/17 17:18 Potassium Chloride (KCl) 20 meq DAILY PO 10/11/17 09:00 10/11/17 09:00 Objective Remarks GENERAL: Well-nourished, well-developed patient. SKIN: Warm and dry. HEAD: Normocephalic. EYES: No scleral icterus. No injection or drainage. NECK: Supple, trachea midline. No JVD or lymphadenopathy. RESPIRATORY: No respiratory distress EXTREMITIES: bilateral lower extremity edema MUSCULOSKELETAL: Adequate muscle tone. NEUROLOGICAL: No obvious focal deficit. Awake, alert, and oriented x3. PSYCHIATRIC: Appropriate mood and affect; insight and judgment normal. Assessment/Plan Assessment 1. RV thrombosis: Seen on TTE but not appear to be present on CHRISTO. Upon review of literature this is a rare entity. Case reports exist where RV thrombus was associated with nephrotic syndrome (more common in children), PE ( low probabiliy of PE on VQ scan), CO (cardiology following). No data for NOACs in this situation. If cardiology deems that there is a RV thrombosis would recommend changing from apixaban to warfarin. Literature recommends anticoagulation for a least three months and until resoluation of thrombosis. Would also ask for cardiology team to weigh in on anticoagulation recommendations and duration. 2. Anemia: ACD per iron studies. Anemia of chronic renal disease contributing. Continue to monitor. 3. Thrombocytopenia: Mild. B12, folate replete. Will order evalutaion of liver and spleen Inpatient hematology service will continue to follow. Kathy Servin MD Oct 12, 2017 08:38
--- NOTE | 2017-10-12 08:41 | PD.CARD.PN ---
Subjective Subjective Remarks continues to feel fatigued and sob. leg edema improved. no chest pain (Shanice Najera) Objective Medications Current Medications Medications (Trade) Dose Ordered Sig/Saad Route Start Time Stop Time Status Last Admin (NS Flush) 2 ml UNSCH PRN IV FLUSH 10/07/17 23:00 (NS Flush) 2 ml BID IV FLUSH 10/08/17 09:00 10/11/17 20:36 (Tylenol) 650 mg Q4H PRN PO 10/07/17 23:00 10/10/17 11:59 (Zofran Inj) 4 mg Q6H PRN IVP 10/07/17 23:00 (Narcan Inj) 0.4 mg UNSCH PRN IV PUSH 10/07/17 23:00 (Milk Of Magnesia Liq) 30 ml Q12H PRN PO 10/07/17 23:00 (Senokot) 17.2 mg Q12H PRN PO 10/07/17 23:00 (Dulcolax Supp) 10 mg DAILY PRN RECTAL 10/07/17 23:00 (Lactulose Liq) 30 ml DAILY PRN PO 10/07/17 23:00 (Coreg) 25 mg BID PO 10/07/17 23:15 10/11/17 20:37 (Apresoline) 50 mg BID PO 10/07/17 23:15 10/11/17 20:40 (Levemir Inj) 24 units DAILY SQ 10/08/17 09:00 10/11/17 09:00 (Synthroid) 112 mcg DAILY@0700 PO 10/08/17 07:00 10/12/17 06:17 (Lidoderm 5% Patch.12 Hr) 1 patch DAILY T-DERMAL 10/08/17 09:00 10/11/17 09:41 (Pravachol) 80 mg HS PO 10/07/17 23:15 10/11/17 20:37 (D50w (Vial) Inj) 50 ml UNSCH PRN IV PUSH 10/07/17 23:15 (Glucagon Inj) 1 mg UNSCH PRN OTHER 10/07/17 23:15 (NovoLOG SUPPLEMENTAL SCALE) 1 ACHS SLIDING SCALE SQ 10/08/17 08:00 10/11/17 21:16 (Eliquis) 5 mg BID PO 10/10/17 09:00 10/11/17 20:40 (Norvasc) 5 mg DAILY PO 10/10/17 10:00 10/11/17 09:41 (Bumetanide) 1 mg BID@09,18 PO 10/10/17 18:00 10/11/17 17:18 (KCl) 20 meq DAILY PO 10/11/17 09:00 10/11/17 09:00 Miscellaneous Information 1 UNSCH PRN XX 10/11/17 12:30 10/14/17 12:29 Lactated Ringer's 1,000 ml @ 30 mls/hr Q24H PRN IV 10/11/17 12:30 10/14/17 12:29 Sodium Chloride 500 ml @ 30 mls/hr [id number] PRN IV 10/11/17 12:30 10/14/17 12:29 (Lopressor) 25 mg ASSOCIATE BRAND MANAGER PRN PO 10/11/17 12:30 10/14/17 12:29 (Betadine 5% Antisepsis Kit) 1 applic ASSOCIATE BRAND MANAGER PRN EACH NARE 10/11/17 12:30 10/14/17 12:29 (Chlorhexidine 2% Cloth) 3 pack ASSOCIATE BRAND MANAGER PRN TOPICAL 10/11/17 12:30 10/14/17 12:29 (NovoLIN R INJ) See Protocol Table ... ASSOCIATE BRAND MANAGER PRN SQ 10/11/17 12:30 10/14/17 12:29 Vital Signs / I&O Vital Signs Date Time Temp Pulse Resp B/P (MAP) Pulse Ox O2 Delivery O2 Flow Rate FiO2 10/12/17 07:41 98.2 72 18 188/88 (121) 96 10/12/17 03:28 98.2 68 18 161/77 (105) 95 10/12/17 03:26 66 10/12/17 00:00 66 10/11/17 20:00 76 10/11/17 19:55 98.0 75 18 129/63 (85) 94 10/11/17 14:49 98.7 85 18 112/58 (76) 93 Physical Exam GENERAL: SKIN: Warm and dry. HEAD: Atraumatic. Normocephalic. EYES: Pupils equal and round. No scleral icterus. No injection or drainage. ENT: No nasal bleeding or discharge. Mucous membranes pink and moist. NECK: Trachea midline. +JVD CARDIOVASCULAR: Regular rate and rhythm. +systolic murmur RESPIRATORY: No accessory muscle use. Clear to auscultation. Breath sounds equal bilaterally. GASTROINTESTINAL: Abdomen soft, non-tender, nondistended. Hepatic and splenic margins not palpable. MUSCULOSKELETAL: Extremities without clubbing, cyanosis. trace edema bilateral NEUROLOGICAL: Awake and alert. No obvious cranial nerve deficits. Normal speech. PSYCHIATRIC: Appropriate mood and affect; insight and judgment normal. (Shanice Najera) Assessment and Plan Problem List: (1) Mitral regurgitation ICD Codes: I34.0 - Nonrheumatic mitral (valve) insufficiency (2) CHF (congestive heart failure) ICD Codes: I50.9 - Heart failure, unspecified Assessment and Plan 62 yo AAF with history of DM, CHF, CKD and afib presented with progressive SOB and lower leg edema. transthoracic echo suggested possible right ventricle thrombus. s/p CHRISTO yesterday did not demonstrate thrombus but did show mod- severe MR and severe pHTN. CHF- valvular, appears well compensated. complains of chronic lower leg edema, consider stopping amlodipine? CHRISTO shows hyperdynamic EF 65-70% with moderate to severe MR and severe pulmonary HTN. CKD- creat 3.2 afib- hx of CVA, rate controlled, cont Eliquis (Shanice Najera) Assessment and Plan stop amlodipine Consult CT surgery re: mitral regurgitation no candidate for pulmonary vasodilator therapy. (Connor Rodgers MD) Shanice Najera Oct 12, 2017 08:41 Connor Rodgers MD Oct 12, 2017 11:24
[2017-10-12] MEDS: INSULIN DETEMIR 100 UNITS/ML VIAL SQ SCH (09:19)
[2017-10-12] MEDS: LIDOCAINE HCL 5% PATCH T-DERMAL SCH (09:19)
[2017-10-12] MEDS: hydrALAZINE HCL 100 MG TAB PO SCH (09:20)
[2017-10-12] MEDS: POTASSIUM CHLORIDE 20 MEQ CONTROLLED RELEASE TAB PO SCH (09:20)
[2017-10-12] MEDS: APIXABAN 5 MG TABLET PO SCH (09:21)
[2017-10-12] MEDS: BUMETANIDE 1 MG TAB PO SCH (09:21)
[2017-10-12] MEDS: CARVEDILOL 12.5 MG TAB PO SCH (09:21)
[2017-10-12] MEDS: SODIUM CHLORIDE 0.9% FLUSH 10 ML FLUSH IV FLUSH SCH (09:21)
[2017-10-12] MEDS: amLODIPine BESYLATE 5 MG TAB PO SCH (09:21)
--- NOTE | 2017-10-12 09:45 | RSPPFT ---
DATE OF PROCEDURE: 10/11/17 COMMENTS: Spirometry shows FVC of 0.89 at 28% of predicted, FEV1 of 0.6 at 23%, FEV1/FVC ratio is decreased. Flow is decreased at FEF 25, FEF 50, FEF 75 and FEF 25-75. There is a good response after bronchodilator treatment. Flow volume loop indicates an obstructive pattern. IMPRESSION: 1. Severe obstructive lung disease. 2. Good response after bronchodilator treatment. 3. Underlying restrictive disease is not ruled out from this study.
--- NOTE | 2017-10-12 10:09 | HHI.PR ---
Subjective Remarks Follow-up for shortness of breathing Patient states shortness of breathing improved. Denies any chest pain, palpitations, lightheadedness or dizziness. She has no other complaints. Her nurses at the bedside. Discuss case with patient's nurse. Objective Vitals Vital Signs Date Time Temp Pulse Resp B/P (MAP) Pulse Ox O2 Delivery O2 Flow Rate FiO2 10/12/17 07:41 98.2 72 18 188/88 (121) 96 10/12/17 03:28 98.2 68 18 161/77 (105) 95 10/12/17 03:26 66 10/12/17 00:00 66 10/11/17 20:00 76 10/11/17 19:55 98.0 75 18 129/63 (85) 94 10/11/17 14:49 98.7 85 18 112/58 (76) 93 Result Diagram: 10/11/17 0530 10/11/17 0530 Imaging Current Medications Sodium Chloride (NS Flush) 2 ml UNSCH PRN IV FLUSH FLUSH AFTER USING IV ACCESS ; Start 10/07/17 at 23:00 Sodium Chloride (NS Flush) 2 ml BID IV FLUSH Last administered on 10/12/17at 09: 21; Start 10/08/17 at 09:00 Acetaminophen (Tylenol) 650 mg Q4H PRN PO TEMP > 100.4 or headeache Last administered on 10/10/17at 11:59; Start 10/07/17 at 23:00 Ondansetron HCl (Zofran Inj) 4 mg Q6H PRN IVP NAUSEA OR VOMITING; Start at 23:00 Naloxone HCl (Narcan Inj) 0.4 mg UNSCH PRN IV PUSH SEE LABEL COMMENTS; Start at 23:00 Magnesium Hydroxide (Milk Of Magnesia Liq) 30 ml Q12H PRN PO Mild constipation ; Start 10/07/17 at 23:00 Sennosides (Senokot) 17.2 mg Q12H PRN PO Moderate constipation; Start 10/07/17 at 23:00 Bisacodyl (Dulcolax Supp) 10 mg DAILY PRN RECTAL SEVERE CONSITIPATION/ IF NPO; Start 10/07/17 at 23:00 Lactulose (Lactulose Liq) 30 ml DAILY PRN PO SEVERE CONSITIPATION / IF PO; Start 10/07/17 at 23:00 Furosemide (Lasix Inj) 40 mg BID@18 IV PUSH ; Start 10/08/17 at 09:00; Stop at 09:00; Status DC Apixaban (Eliquis) 2.5 mg BID PO Last administered on 10/09/17 20:51; Start 10/07/17 at 23:15; Stop 10/10/17 at 09:02; Status DC Carvedilol (Coreg) 25 mg BID PO Last administered on 10/12/17 09:21; Start 10/07 at 23:15 Hydralazine HCl (Apresoline) 50 mg BID PO Last administered on 10/12/17 09:20; Start 10/07/17 at 23:15 Insulin Detemir (Levemir Inj) 24 units DAILY SQ Last administered on 10/12/17 09:19; Start 10/08/17 at 09:00 Levothyroxine Sodium (Synthroid) 112 mcg DAILY@0700 PO Last administered on 10/12 06:17; Start 10/08/17 at 07:00 Lidocaine HCl (Lidoderm 5% Patch.12 Hr) 1 patch DAILY T-DERMAL Last administered on 10/12/17 09:19; Start 10/08/17 at 09:00 Pravastatin Sodium (Pravachol) 80 mg HS PO Last administered on 10/11/17 20:37 ; Start 10/07/17 at 23:15 Dextrose (D50w (Vial) Inj) 50 ml UNSCH PRN IV PUSH HYPOGLYCEMIA-SEE COMMENTS; Start 10/07/17 at 23:15 Glucagon (Glucagon Inj) 1 mg UNSCH PRN OTHER HYPOGLYCEMIA-SEE COMMENTS; Start 10/07/17 at 23:15 Insulin Aspart (NovoLOG SUPPLEMENTAL SCALE) 1 ACHS SLIDING SCALE SQ Last administered on 10/11/17 21:16; Start 10/08/17 at 08:00 Furosemide (Lasix Inj) 40 mg BID@,18 IV PUSH Last administered on 10/09/17 17 :18; Start 10/08/17 at 09:00; Stop 10/10/17 at 09:41; Status DC Potassium Chloride (KCl) 20 meq ONCE ONCE PO Last administered on 2/3/18at 08: 37; Start 10/08/17 at 07:45; Stop 10/08/17 at 07:46; Status DC Clonidine (Catapres) 0.1 mg ONCE ONCE PO Last administered on 10/09/17at 05:02; Start 10/09/17 at 04:15; Stop 10/09/17 at 04:16; Status DC Clonidine (Catapres) 0.1 mg ONCE ONCE PO Last administered on 10/10/17at 01:13; Start 10/10/17 at 01:00; Stop 10/10/17 at 01:01; Status DC Apixaban (Eliquis) 5 mg BID PO Last administered on 10/12/17at 09:21; Start at 09:00 Amlodipine Besylate (Norvasc) 5 mg DAILY PO Last administered on 10/12/17at 09:21 ; Start 10/10/17 at 10:00 Bumetanide (Bumetanide) 1 mg BID@18 PO Last administered on 10/12/17at 09:21; Start 10/10/17 at 18:00 Potassium Chloride (KCl) 40 meq ONCE ONCE PO Last administered on 10/10/17at 13: 15; Start 10/10/17 at 13:15; Stop 10/10/17 at 13:24; Status DC Potassium Chloride (KCl) 20 meq DAILY PO Last administered on 10/12/17at 09:20; Start 10/11/17 at 09:00 Miscellaneous Information 1 UNSCH PRN XX SEE LABEL COMMENTS; Start 10/11/17 at 12:30; Stop 10/14/17 at 12:29 Lactated Ringer's 1,000 ml @ 30 mls/hr Q24H PRN IV SEE LABEL COMMENTS; Start at 12:30; Stop 10/14/17 at 12:29 Sodium Chloride 500 ml @ 30 mls/hr [id number] PRN IV SEE LABEL COMMENTS; Start 10/11/17 at 12:30; Stop 10/14/17 at 12:29 Metoprolol Tartrate (Lopressor) 25 mg AIRDOX FITTER PRN PO SEE LABEL COMMENTS; Start 10/11/17 at 12:30; Stop 10/14/17 at 12:29 Povidone Iodine (Betadine 5% Antisepsis Kit) 1 applic AIRDOX FITTER PRN EACH NARE SEE LABEL COMMENTS; Start 10/11/17 at 12:30; Stop 10/14/17 at 12:29 Chlorhexidine Gluconate (Chlorhexidine 2% Cloth) 3 pack AIRDOX FITTER PRN TOPICAL SEE LABEL COMMENTS; Start 10/11/17 at 12:30; Stop 10/14/17 at 12:29 Insulin Human Regular (NovoLIN R INJ) See Protocol Table ... AIRDOX FITTER PRN SQ SEE PROTOCOL TABLE; Start 10/11/17 at 12:30; Stop 10/14/17 at 12:29 Objective Remarks GENERAL: in NAD CARDIOVASCULAR: Regular rate and rhythm without murmurs, gallops, or rubs. + JVD. RESPIRATORY: Breath sounds equal bilaterally. No accessory muscle use. GASTROINTESTINAL: Abdomen soft, non-tender, nondistended. MUSCULOSKELETAL: Trace edema. Medications and IVs Current Medications Sodium Chloride (NS Flush) 2 ml UNSCH PRN IV FLUSH FLUSH AFTER USING IV ACCESS ; Start 10/07/17 at 23:00 Sodium Chloride (NS Flush) 2 ml BID IV FLUSH Last administered on 10/12/17at 09: 21; Start 10/08/17 at 09:00 Acetaminophen (Tylenol) 650 mg Q4H PRN PO TEMP > 100.4 or headeache Last administered on 10/10/17at 11:59; Start 10/07/17 at 23:00 Ondansetron HCl (Zofran Inj) 4 mg Q6H PRN IVP NAUSEA OR VOMITING; Start at 23:00 Naloxone HCl (Narcan Inj) 0.4 mg UNSCH PRN IV PUSH SEE LABEL COMMENTS; Start at 23:00 Magnesium Hydroxide (Milk Of Magnesia Liq) 30 ml Q12H PRN PO Mild constipation ; Start 10/07/17 at 23:00 Sennosides (Senokot) 17.2 mg Q12H PRN PO Moderate constipation; Start 10/07/17 at 23:00 Bisacodyl (Dulcolax Supp) 10 mg DAILY PRN RECTAL SEVERE CONSITIPATION/ IF NPO; Start 10/07/17 at 23:00 Lactulose (Lactulose Liq) 30 ml DAILY PRN PO SEVERE CONSITIPATION / IF PO; Start 10/07/17 at 23:00 Furosemide (Lasix Inj) 40 mg BID@ IV PUSH ; Start 10/08/17 at 09:00; Stop at 09:00; Status DC Apixaban (Eliquis) 2.5 mg BID PO Last administered on 10/09/17 20:51; Start 10/07/17 at 23:15; Stop 10/10/17 at 09:02; Status DC Carvedilol (Coreg) 25 mg BID PO Last administered on 10/12/17 09:21; Start 10/07 at 23:15 Hydralazine HCl (Apresoline) 50 mg BID PO Last administered on 10/12/17 09:20; Start 10/07/17 at 23:15 Insulin Detemir (Levemir Inj) 24 units DAILY SQ Last administered on 10/12/17 09:19; Start 10/08/17 at 09:00 Levothyroxine Sodium (Synthroid) 112 mcg DAILY@0700 PO Last administered on 10/12 06:17; Start 10/08/17 at 07:00 Lidocaine HCl (Lidoderm 5% Patch.12 Hr) 1 patch DAILY T-DERMAL Last administered on 10/12/17 09:19; Start 10/08/17 at 09:00 Pravastatin Sodium (Pravachol) 80 mg HS PO Last administered on 10/11/17 20:37 ; Start 10/07/17 at 23:15 Dextrose (D50w (Vial) Inj) 50 ml UNSCH PRN IV PUSH HYPOGLYCEMIA-SEE COMMENTS; Start 10/07/17 at 23:15 Glucagon (Glucagon Inj) 1 mg UNSCH PRN OTHER HYPOGLYCEMIA-SEE COMMENTS; Start 10/07/17 at 23:15 Insulin Aspart (NovoLOG SUPPLEMENTAL SCALE) 1 ACHS SLIDING SCALE SQ Last administered on 10/11/17 21:16; Start 10/08/17 at 08:00 Furosemide (Lasix Inj) 40 mg BID@18 IV PUSH Last administered on 10/09/17 17 :18; Start 10/08/17 at 09:00; Stop 10/10/17 at 09:41; Status DC Potassium Chloride (KCl) 20 meq ONCE ONCE PO Last administered on 10/08/17 08: 37; Start 10/08/17 at 07:45; Stop 10/08/17 at 07:46; Status DC Clonidine (Catapres) 0.1 mg ONCE ONCE PO Last administered on 10/09/17at 05:02; Start 10/09/17 at 04:15; Stop 10/09/17 at 04:16; Status DC Clonidine (Catapres) 0.1 mg ONCE ONCE PO Last administered on 10/10/17at 01:13; Start 10/10/17 at 01:00; Stop 10/10/17 at 01:01; Status DC Apixaban (Eliquis) 5 mg BID PO Last administered on 10/12/17at 09:21; Start at 09:00 Amlodipine Besylate (Norvasc) 5 mg DAILY PO Last administered on 10/12/17at 09:21 ; Start 10/10/17 at 10:00 Bumetanide (Bumetanide) 1 mg BID@,18 PO Last administered on 10/12/17at 09:21; Start 10/10/17 at 18:00 Potassium Chloride (KCl) 40 meq ONCE ONCE PO Last administered on 10/10/17at 13: 15; Start 10/10/17 at 13:15; Stop 10/10/17 at 13:24; Status DC Potassium Chloride (KCl) 20 meq DAILY PO Last administered on 10/12/17at 09:20; Start 10/11/17 at 09:00 Miscellaneous Information 1 UNSCH PRN XX SEE LABEL COMMENTS; Start 10/11/17 at 12:30; Stop 10/14/17 at 12:29 Lactated Ringer's 1,000 ml @ 30 mls/hr Q24H PRN IV SEE LABEL COMMENTS; Start at 12:30; Stop 10/14/17 at 12:29 Sodium Chloride 500 ml @ 30 mls/hr [id number] PRN IV SEE LABEL COMMENTS; Start 10/11/17 at 12:30; Stop 10/14/17 at 12:29 Metoprolol Tartrate (Lopressor) 25 mg AIRDOX FITTER PRN PO SEE LABEL COMMENTS; Start 10/11/17 at 12:30; Stop 10/14/17 at 12:29 Povidone Iodine (Betadine 5% Antisepsis Kit) 1 applic AIRDOX FITTER PRN EACH NARE SEE LABEL COMMENTS; Start 10/11/17 at 12:30; Stop 10/14/17 at 12:29 Chlorhexidine Gluconate (Chlorhexidine 2% Cloth) 3 pack AIRDOX FITTER PRN TOPICAL SEE LABEL COMMENTS; Start 10/11/17 at 12:30; Stop 10/14/17 at 12:29 Insulin Human Regular (NovoLIN R INJ) See Protocol Table ... AIRDOX FITTER PRN SQ SEE PROTOCOL TABLE; Start 10/11/17 at 12:30; Stop 10/14/17 at 12:29 A/P Assessment and Plan This is a 62-year-old female presented with SOB and increased lower extremity edema CHF exacerbation -Chest x-ray significant for pulmonary edema with small effusions. -BNP 1840 -Given patient's comorbidity of chronic renal disease, IV Bumex would be ideal for diuresis however this medication is currently out of stock. -Clinically symptoms are improving drastically. -Echo reviewed significant for right apical thrombus, severe regurgitation, moderate to severe pulmonary hypertension with no signs of tamponade. Moderate amount of left-sided pleural effusion. EF is 50-55%. -CHRISTO done on 10/[address] swartz showing ejection fraction 65-70%, moderate to severe mitral valve regurgitation, moderate to severe tricuspid valve regurgitation severe pulmonary hypertension, moderate LVH normal left ventricular size. - on oral Bumex 1 mg by mouth twice a day. Exertional dyspnea -This has improved. Initially she was treated for CHF with improvement. -CHRISTO results as above. Pulmonary HTN, moderate to severe -Digital Marketing Specialist consulted. Appreciate recommendations. Rheumatological workup is being done. -PFT showed significant restrictive and obstructive disease. Per astrochemist patient will need PFT as outpatient. Severe mitral valve regurgitation -Cardiovascular surgeon consulted. Uncontrolled HTN -Better control with amlodipine. Chronic kidney disease -Creatinine 3.80, which is baseline for the patient. Creatinine now 3.23. -Monitor renal function -Avoid nephrotoxins. -Strict ins and outs. Continue to monitor creatinine. A fib -2 Decho showing right apical thrombus despite being on Eliquis. Eliquis was recently decreased to 2.5 mg by mouth twice a day by her PCP. Eliquis was increased on 2/5 mg by mouth twice a day. -CHRISTO did not show any thrombus. -I spoke with Dr. Servin concrete stone fabricator who stated that okay to continue with Eliquis 5 mg p.o. twice daily if there is no thrombus on CHRISTO. Insulin-dependent diabetes mellitus -Continue home Levemir -SSI -Monitor blood glucose Hypertension/hyperlipidemia -Continue home medications DVT prophylaxis -On Eliquis. Discharge Planning Pending cardiovascular surgeon consult. If patient does not require a procedure can be discharged home today. Florencia Blair MD Oct 12, 2017 10:09
[2017-10-12 11:27] VITALS: BP 128/82; PULSE 68; RESP 20; TEMP 97.9; O2SAT 92
[2017-10-12 11:39] LABS: HEMATOCRIT 28.2 % (35.0-46.0); HEMOGLOBIN 9.5 GM/DL (11.6-15.3); MEAN CELL VOLUME 88.9 FL (80.0-100.0); MEAN CORPUSCULAR HEMOGLOBIN 30.1 PG (27.0-34.0); MEAN CORPUSCULAR HGB CONC 33.9 % (32.0-36.0); MEAN PLATELET VOLUME 10.3 FL (7.0-11.0); PLATELET COUNT 139 TH/MM3 (150-450); RED BLOOD COUNT 3.17 MIL/MM3 (4.00-5.30); RED CELL DISTRIBUTION WIDTH 14.2 % (11.6-17.2); WHITE BLOOD COUNT 4.5 TH/MM3 (4.0-11.0)
--- NOTE | 2017-10-12 11:44 | PD.CAR.PN ---
CVT Progress Note Subjective/Hospital Course: Pt examined and chart reviewed. Full consult dictated. OK to discharge from my standpoint. Please have pt follow up with me in the office in 3 weeks. Thank you. Objective: Vital Signs Date Time Temp Pulse Resp B/P (MAP) Pulse Ox O2 Delivery O2 Flow Rate FiO2 10/12/17 11:27 97.9 68 20 128/82 (97) 92 10/12/17 07:41 98.2 72 18 188/88 (121) 96 10/12/17 03:28 98.2 68 18 161/77 (105) 95 10/12/17 03:26 66 10/12/17 00:00 66 10/11/17 20:00 76 10/11/17 19:55 98.0 75 18 129/63 (85) 94 10/11/17 14:49 98.7 85 18 112/58 (76) 93 Labs: Laboratory Tests Test 10/12/17 11:09 White Blood Count 4.5 TH/MM3 (4.0-11.0) Red Blood Count 3.17 MIL/MM3 (4.00-5.30) Hemoglobin 9.5 GM/DL (11.6-15.3) Hematocrit 28.2 % (35.0-46.0) Mean Corpuscular Volume 88.9 FL (80.0-100.0) Mean Corpuscular Hemoglobin 30.1 PG (27.0-34.0) Mean Corpuscular Hemoglobin Concent 33.9 % (32.0-36.0) Red Cell Distribution Width 14.2 % (11.6-17.2) Platelet Count 139 TH/MM3 (150-450) Mean Platelet Volume 10.3 FL (7.0-11.0) Result Diagram: 10/12/17 1109 10/11/17 0530 (1) Mitral regurgitation (2) CHF (congestive heart failure) Maria Teresa Rocha MD Oct 12, 2017 11:44
[2017-10-12 11:56] LABS: BICARBONATE 27.3 MEQ/L (21.0-32.0); CALCIUM 8.6 MG/DL (8.5-10.1); CREATININE 3.35 MG/DL (0.50-1.00)
--- NOTE | 2017-10-12 12:53 | RADRPT ---
EXAM DATE/TIME: 10/12/2017 08:44 [facility] COMPARISON: No previous studies available for comparison. INDICATIONS : Abnormal labs. MEDICAL HISTORY : Hypothyroidism. Hypercholesterolemia. Hypertension. SURGICAL HISTORY : section. ENCOUNTER: Initial ACUITY: 1 day PAIN SCORE: 2/10 LOCATION: Bilateral upper quadrant MEASUREMENTS: LIVER: 16.4 cm length COMMON DUCT: 2 mm RIGHT KIDNEY: 10.4 x 3.4 x 5.4 cm SPLEEN: 9.1 cm length FINDINGS: LIVER: Normal echotexture without focal lesion or ductal dilatation. COMMON DUCT: No intraluminal mass or stone visualized. GALLBLADDER: Contains no stones, demonstrates no wall thickening or pericholecystic fluid. PANCREAS: The visualized portions are within normal limits. RIGHT KIDNEY: Increased cortical echogenicity. No evidence of hydronephrosis or mass SPLEEN: No focal lesion. CONCLUSION: Echogenic renal cortex suggesting medical renal disease. No focal liver abnormalities. Jong Whitehead MD on October 12, 2017 at 12:45 Board Certified Radiologist. This report was verified electronically.
[2017-10-12] MEDS ORDERED: APIX5TAB PO (13:33)
--- NOTE | 2017-10-12 13:34 | HHI.DS ---
Discharge Summary Admission Date Oct 07, 2017 at 21:57 Discharge Date: Oct 12, 2017 Admitting Diagnosis (1) CHF (congestive heart failure) ICD Code: I50.9 - Heart failure, unspecified Diagnosis: Principal (2) Atrial fibrillation ICD Code: I48.91 - Unspecified atrial fibrillation Diagnosis: Secondary (3) Pulmonary hypertension ICD Code: I27.20 - Pulmonary hypertension, unspecified Diagnosis: Principal (4) Mitral regurgitation ICD Code: I34.0 - Nonrheumatic mitral (valve) insufficiency Diagnosis: Principal (5) Essential (primary) hypertension ICD Code: I10 - Essential (primary) hypertension Diagnosis: Secondary (6) CKD (chronic kidney disease) stage 4, GFR 15-29 ml/min ICD Code: N18.4 - Chronic kidney disease, stage 4 (severe) Diagnosis: Secondary Procedures see hospital course Brief History - From Admission 62-year-old female with a past medical history significant for CHF (EF of 60-65 % on 07/02/17), hypertension, diabetes mellitus, hyperlipidemia, chronic kidney disease and history of CVA presents to the emergency department from her PCPs office for further evaluation of CHF exacerbation. The patient was being evaluated by her primary care physician who was concerned about volume overload and sent her to the emergency department. The patient complains of worsening increasing shortness of breath for the past 1.5 weeks. She has had a corresponding increase in her bilateral lower extremity edema as well despite being compliant with her medications. The chest pain/pressure, fever/chills, nausea/vomiting/diarrhea. No changes in mental status. CBC/BMP: 10/12/17 1109 10/12/17 1109 Significant Findings Laboratory Tests Test 10/10/17 11:36 10/10/17 21:36 10/11/17 05:30 10/12/17 11:09 Red Blood Count 3.42 MIL/MM3 (4.00-5.30) 3.19 MIL/MM3 (4.00-5.30) 3.17 MIL/MM3 (4.00-5.30) Hemoglobin 10.3 GM/DL (11.6-15.3) 9.5 GM/DL (11.6-15.3) 9.5 GM/DL (11.6-15.3) Hematocrit 30.7 % (35.0-46.0) 28.2 % (35.0-46.0) 28.2 % (35.0-46.0) Platelet Count 149 TH/MM3 (150-450) 139 TH/MM3 (150-450) Monocytes (%) (Auto) 9.6 % (0.0-8.0) Blood Urea Nitrogen 48 MG/DL (7-18) 47 MG/DL (7-18) 50 MG/DL (7-18) Creatinine 3.15 MG/DL (0.50-1.00) 3.23 MG/DL (0.50-1.00) 3.35 MG/DL (0.50-1.00) Random Glucose 68 MG/DL (74-106) 55 MG/DL (74-106) 199 MG/DL (74-106) Potassium Level 3.3 MEQ/L (3.5-5.1) 3.4 MEQ/L (3.5-5.1) Estimat Glomerular Filtration Rate 18 ML/MIN (>89) 18 ML/MIN (>89) 17 ML/MIN (>89) Iron Level 49 MCG/DL (50-170) Percent Iron Saturation 15.4 % (20-50) Ferritin 256 NG/ML (8-252) Folate 19.9 NG/ML (3.1-17.5) Erythrocyte Sedimentation Rate 39 mm/hr (0-30) Chloride Level 109 MEQ/L (98-107) 108 MEQ/L (98-107) Imaging Last Impressions Liver Ultrasound 10/12/17 Signed Impressions: Service Date/Time: Thursday, October 12, 2017 08:44 - CONCLUSION: Echogenic renal cortex suggesting medical renal disease. No focal liver abnormalities. Jong Whitehead MD Lung Scan-V Nuclear Medicine 10/10/17 Signed Impressions: Service Date/Time: Tuesday, October 10, 2017 09:43 - CONCLUSION: Low probability for pulmonary embolism. Sagar Monk MD Chest X-Ray 10/10/17 Signed Impressions: Service Date/Time: Tuesday, October 10, 2017 09:31 - CONCLUSION: Moderate congestive failure Henry Barker MD FACR PE at Discharge GENERAL: in NAD CARDIOVASCULAR: Regular rate and rhythm without murmurs, gallops, or rubs. + JVD. RESPIRATORY: Breath sounds equal bilaterally. No accessory muscle use. GASTROINTESTINAL: Abdomen soft, non-tender, nondistended. MUSCULOSKELETAL: Trace edema. Pt update on day of discharge Please see progress note from today for further information. Update cardiovascular surgeon saw patient stated to follow-up in 3 weeks clear for discharge. I saw patient again and discussed the case again. Patient told if she has any signs of bleeding at the higher dose of Eliquis to notify her PCP HEBERT. Patient stated that she understood. Hospital Course This is a 62-year-old female presented with SOB and increased lower extremity edema CHF exacerbation -Chest x-ray significant for pulmonary edema with small effusions. -BNP 1840 -Given patient's comorbidity of chronic renal disease, IV Bumex would be ideal for diuresis however this medication is currently out of stock. Patient initially put on IV Lasix with clinical improvement in symptoms. She was then transitioned to oral Bumex. -Echo reviewed significant for right apical thrombus, severe regurgitation, moderate to severe pulmonary hypertension with no signs of tamponade. Moderate amount of left-sided pleural effusion. EF is 50-55%. -CHRISTO done on 10/[address] swartz showing ejection fraction 65-70%, moderate to severe mitral valve regurgitation, moderate to severe tricuspid valve regurgitation severe pulmonary hypertension, moderate LVH normal left ventricular size. Exertional dyspnea -This has improved with treatment with aggressive diuresing. Initially she was treated for CHF with improvement. -CHRISTO results as above. Pulmonary HTN, moderate to severe -Neurological Surgeon consulted. Appreciate recommendations. Rheumatological workup is being done. -PFT showed significant restrictive and obstructive disease. Per heat treat supervisor patient will need PFT as outpatient. -Per two needle machine operator no candidate for pulmonary vasodilator therapy. Severe mitral valve regurgitation -Cardiovascular surgeon consulted and stated patient can follow-up as outpatient in 3 weeks. Patient was cleared from discharge from a cardiovascular surgeon standpoint. Uncontrolled HTN -Patient was put on amlodipine but per two needle machine operator discontinue amlodipine. Chronic kidney disease -Creatinine 3.80, which is baseline for the patient. Creatinine now 3.23. -Monitor renal function -Avoid nephrotoxins. -Strict ins and outs. Continue to monitor creatinine. A fib -2 Decho showing right apical thrombus despite being on Eliquis. Eliquis was recently decreased to 2.5 mg by mouth twice a day by her PCP. Eliquis was increased on 2/5 mg by mouth twice a day. -CHRISTO did not show any thrombus. -I spoke with Dr. Servin hebrew teacher who stated that okay to continue with Eliquis 5 mg p.o. twice daily if there is no thrombus on CHRISTO. -Patient has atrial fibrillation so she needs to be anticoagulated for lifetime. Insulin-dependent diabetes mellitus -Continue home Levemir -SSI -Monitor blood glucose Hypertension/hyperlipidemia -Continue home medications Pt Condition on Discharge: Stable Discharge Disposition: Discharge Home Discharge Time: > 30 minutes Discharge Instructions DIET: Follow Instructions for: Heart Healthy Diet, Diabetic Diet Activities you can perform: Regular-No Restrictions Follow up Referrals: Appointment for Follow Up - 3 Weeks with Maria Teresa Rocha MD Cardiology - 1 Week with Connor Swartz MD PCP Follow-up - 3-5 Days Pulmonology - 1 Week with Deacon Harmon MD New Medications: Bumetanide (Bumetanide) 1 Mg Tab 1 MG PO BID for CHF, #60 TAB 0 Refills Apixaban (Eliquis) 5 Mg Tab 5 MG PO BID for atrial fibrillation, #60 TAB 0 Refills Continued Medications: Calcitriol (Calcitriol) 0.5 Mcg Cap 0.5 MCG PO DAILY for Calcium Supplement, #30 CAP 0 Refills Carvedilol (Carvedilol) 25 Mg Tab 25 MG PO BID, #60 TAB 0 Refills Hydralazine (Hydralazine) 100 Mg Tab 50 MG PO BID for Blood Pressure Management, TAB 0 Refills Take with meals Insulin Aspart Inj (Novolog Penfill Inj) 300 Unit/3 Ml Pen 10 UNITS SQ HS PRN for Blood Sugar Management, BOX 0 Refills Insulin Glargine Inj (Lantus Inj) 1,000 Unit/10 Ml Vial 24 UNITS SQ DAILY for Blood Sugar Management, VIAL 0 Refills Levothyroxine (Levothyroxine) 112 Mcg Tab 112 MCG PO DAILY for Thyroid, #30 TAB 0 Refills Lidocaine Patch 12 HR (Lidocaine Patch 12 HR) 5 % Patch 1 PATCH TOPICAL DAILY for Pain Management, #1 BOX 0 Refills Remove patch after 12 hours Nitroglycerin SL (Nitroglycerin SL) 0.4 Mg Subl 0.4 MG SL DIRECTED PRN for CHEST PAIN, #100 TAB.SL 0 Refills ONE TABLET UNDER THE TONGUE NEEDED FOR CHEST PAIN, MAY REPEAT EVERY FIVE MINUTES FOR A TOTAL OF 3 DOSES OR CALL 911 IF NO RELIEF Pravastatin (Pravastatin) 80 Mg Tab 80 MG PO HS for Cholesterol Management, #30 TAB 0 Refills Discontinued Medications: Apixaban (Eliquis) 2.5 Mg Tab 2.5 MG PO BID for Blood Clot Prevention, #60 TAB 0 Refills Bumetanide (Bumetanide) 1 Mg Tab 1 MG PO DAILY, #30 TAB 0 Refills Furosemide (Lasix) 40 Mg Tab 40 MG PO DAILY, #30 TAB 0 Refills Florencia Blair MD Oct 12, 2017 13:34
[2017-10-12 16:07] VITALS: BP 196/90; PULSE 70; RESP 18; TEMP 98.4; O2SAT 96
[2017-10-13 17:00] LABS: ALB/GLOB RATIO (SPE) 0.96 (1.39-2.23)
[2017-10-15 07:53] LABS: CARDIOLIPIN AB IGA LESS THAN 11.0 APL (0-11)
[2017-10-16 15:51] LABS: BETA2 GLYCOPROTEIN I AB IGA LESS THAN 9.0 SAU (< OR = 20); BETA2 GLYCOPROTEIN I AB IGG LESS THAN 9.0 SGU (< OR = 20); BETA2 GLYCOPROTEIN I AB IGM LESS THAN 9.0 SMU (< OR = 20)
[2017-10-17 03:51] LABS: PHOS SERINE AB IGA LESS THAN 20 U/mL (<20)
== END 2017-10-12 17:43 | disposition home or self-care (01) ==
LOC: NEDDLT 21:47 → NEPFCDU 21:57
PROVIDERS: ADMIT Family Medicine; ATTEND Family Medicine
DX: I13.0 Hypertensive heart and chronic kidney disease with heart failure and stage 1 through stage 4 chronic kidney disease, or unspecified chronic kidney disease (principal); I50.33 Acute on chronic diastolic (congestive) heart failure; I48.91 Unspecified atrial fibrillation; I27.20 Pulmonary hypertension, unspecified; I34.0 Nonrheumatic mitral (valve) insufficiency; N18.4 Chronic kidney disease, stage 4 (severe); I51.3 Intracardiac thrombosis, not elsewhere classified; R11.2 Nausea with vomiting, unspecified; D63.1 Anemia in chronic kidney disease; R07.89 Other chest pain; D69.6 Thrombocytopenia, unspecified; R50.9 Fever, unspecified; R19.7 Diarrhea, unspecified; E11.22 Type 2 diabetes mellitus with diabetic chronic kidney disease; M79.89 Other specified soft tissue disorders; R00.2 Palpitations; E78.5 Hyperlipidemia, unspecified; R04.0 Epistaxis; Z79.4 Long term (current) use of insulin; Z86.73 Personal history of transient ischemic attack (TIA), and cerebral infarction without residual deficits; Z99.2 Dependence on renal dialysis; Z79.01 Long term (current) use of anticoagulants
CPT/HCPCS: 71045; 71046; 76705; 78582; 80048; 80053; 81240; 81241; 82607; 82728; 82746; 82948; 83540; 83550; 83735; 83880; 84165; 84484; 85025; 85027; 85610; 85652; 85730; 86038; 86146; 86147; 86148; 86430; 93005; 93306; 93312; 93320; 93325; 94060; 96372; 96374; 96375; 99285; A9540; A9567; G0378; J0360; J1815; J1940

== ENCOUNTER 2018-04-20 19:01 | Observation (INO) ==
[2018-04-21 02:42] LABS: Troponin I 0.05 ng/mL (0.02-0.05)
[2018-04-21 02:54] LABS: CKMB Percent 0.5 % (0.0-4.0); Creatine Kinase MB 1.6 ng/mL (0.5-3.6)
[2018-04-21] MEDS ORDERED: Enoxaparin Inj 40 MG/0.4 ML Syringe SQ SCH (12:00)
--- NOTE | 2018-04-21 15:50 | P.CONCA ---
<Chris Thomas - Last Filed: 04/21/18 15:44> History of Present Illness Primary Care Provider: UNKNOWN History of Present Illness: 62-year-old female with past medical history of CVA, diastolic CHF, CAD, who presented for chest pain. The patient is a very poor historian. She states that she has had a cardiac catheterization before, but cannot say if any intervention was done and cannot say when the catheterization was done. She states that she takes nitroglycerin often for chest pain and it seems that this may be a chronic issue, however she cannot recall how often in a week or in a month she needs to take nitroglycerin. She has a sprinkling truck driver in [place] that she was supposed to see today. Regardless, the patient states that she has been having chest pain and shortness of breath for the past 2 days. She states that she has taken nitro 6 times yesterday which helped the chest pain. She states that since getting a nitro patch in the ED her chest pain has been resolved. She does not recall when her last stress test was and would like to do a stress test today. Her EKGs show nonspecific lateral T-wave changes, similar to previous EKG from October. Troponin 0 0.04, 0.05, 0.05. Creatinine 4.8, has CKD 4 baseline. Review of Systems All other systems reviewed negative except as stated in HPI [facility] - History History Provided By: Patient, Family Member - Medical History Medical History: Medical History (Last Updated 04/20/18 @ 19:17 by Tyra Garcia RN) Diabetes FH: CVA (cerebrovascular accident) Kidney disease Past heart attack - Tobacco History Smoking Status: Never smoker - Alcohol History How Often Do You Have a Drink Containing Alcohol: Never - Substance Use History Substance History: No History of Abuse Medications and Allergies Allergies Allergy/AdvReac Type Severity Reaction Status Date / Time ibuprofen Allergy Severe SWELLING Verified 10/07/17 15:15 aspirin AdvReac Intermediate UPSETS Verified 10/07/17 15:15 STOMACH Home Medications Medication Instructions Recorded Confirmed Type No Known Home Medications 04/20/18 04/20/18 History Active Medications: Active Medications Apixaban (Eliquis) 5 mg PO BID [facility] Carvedilol (Coreg) 3.125 mg PO BID [facility] Exam Vital signs: Vital Signs 04/21/18 00:45 04/21/18 01:53 04/21/18 04:00 Temperature 97.5 F L 97.4 F L Pulse Rate 67 70 65 Respiratory Rate 20 18 Blood Pressure 135/95 H 152/70 H Pulse Oximetry 98 94 L 04/21/18 08:00 04/21/18 12:00 Temperature 98.3 F 98.7 F Pulse Rate 74 73 Respiratory Rate 20 20 Blood Pressure 180/93 H 189/97 H Pulse Oximetry 99 97 Intake & Output 04/20/18 04/21/18 04/21/18 18:59 06:59 18:59 Intake Total 0 / 0 Balance 0 / 0 Weight 151 lb 14.376 oz Intake: Oral 0 / 0 Other: # Voids 4 Narrative: GENERAL: Well-developed well-nourished. In no acute distress. NECK: No carotid bruits. No JVD. CARDIOVASCULAR: Regular rate and rhythm. No murmur appreciated. RESPIRATORY: No accessory muscle use. Clear to auscultation. Breath sounds equal bilaterally. MUSCULOSKELETAL: No clubbing or cyanosis. No edema. NEUROLOGICAL: Awake and alert. Normal speech. Results Cardiac Enzymes 04/21/18 04/21/18 Range/Units 02:08 11:45 CK-MB (CK-2) 1.6 (0.5-3.6) ng/mL Troponin I 0.05 0.05 (0.02-0.05) ng/mL Intake and Output 04/21/18 04/21/18 04/21/18 06:59 14:59 22:59 Intake Total 0 / 0 Balance 0 / 0 Intake: Oral 0 / 0 Other: # Voids 4 Weight 151 lb 14.376 oz Assessment and Plan - Plan 62-year-old female with past medical history of CVA, diastolic CHF, CAD, who presented for chest pain. The patient is a very poor historian. She states that she has had a cardiac catheterization before, but cannot say if any intervention was done and cannot say when the catheterization was done. She states that she takes nitroglycerin often for chest pain and it seems that this may be a chronic issue, however she cannot recall how often in a week or in a month she needs to take nitroglycerin. She has a sprinkling truck driver in [place] that she was supposed to see today. Regardless, the patient states that she has been having chest pain and shortness of breath for the past 2 days. She states that she has taken nitro 6 times yesterday which helped the chest pain. She states that since getting a nitro patch in the ED her chest pain has been resolved. She does not recall when her last stress test was and would like to do a stress test today. Her EKGs show nonspecific lateral T-wave changes, similar to previous EKG from October. Troponin 0.04, 0.05, 0.05. Creatinine 4.8, has CKD 4 at baseline. Chest pain with a possible history of CAD: EKG with chronic lateral ischemic changes, unchanged. Troponins within normal limits. Will check Lexiscan for further evaluation, however unless markedly abnormal findings, the patient is a poor interventional candidate with advanced renal disease. If Lexiscan normal or with mild ischemic disease, will likely recommend medical management and follow-up with her personal sprinkling truck driver as outpatient. We will not follow along, however, I discussed with the hospitalist who will call Dr. Rodgers with any questions regarding Lexiscan findings. Discussed Condition With: Patient, Dr. Rodgers, Dr. Apple <Connor Rodgers - Last Filed: 04/21/18 17:20> History of Present Illness Primary Care Provider: UNKNOWN [facility] - Medical History Medical History: Medical History (Last Updated 04/20/18 @ 19:17 by Tyra Garcia RN) Diabetes FH: CVA (cerebrovascular accident) Kidney disease Past heart attack Medications and Allergies Active Medications: Active Medications Apixaban (Eliquis) 5 mg PO BID [facility] Last Admin: 04/21/18 16:28 Dose: 5 mg Carvedilol (Coreg) 3.125 mg PO BID [facility] Last Admin: 04/21/18 16:28 Dose: 3.125 mg Exam Vital signs: Vital Signs 04/21/18 00:45 04/21/18 01:53 04/21/18 04:00 Temperature 97.5 F L 97.4 F L Pulse Rate 67 70 65 Respiratory Rate 20 18 Blood Pressure 135/95 H 152/70 H Pulse Oximetry 98 94 L 04/21/18 08:00 04/21/18 12:00 04/21/18 16:00 Temperature 98.3 F 98.7 F 98.0 F Pulse Rate 74 73 80 Respiratory Rate 20 20 17 Blood Pressure 180/93 H 189/97 H 213/110 H Pulse Oximetry 99 97 99 Intake & Output 04/20/18 04/21/18 04/21/18 18:59 06:59 18:59 Intake Total 0 / 0 Balance 0 / 0 Weight 68.9 kg Intake: Oral 0 / 0 Other: # Voids 4 Results Cardiac Enzymes 04/21/18 04/21/18 Range/Units 02:08 11:45 CK-MB (CK-2) 1.6 (0.5-3.6) ng/mL Troponin I 0.05 0.05 (0.02-0.05) ng/mL Intake and Output 04/21/18 04/21/18 04/21/18 06:59 14:59 22:59 Intake Total 0 / 0 Balance 0 / 0 Intake: Oral 0 / 0 Other: # Voids 4 Weight 68.9 kg Assessment and Plan - Attending Attestation agree with above
--- NOTE | 2018-04-21 16:34 | P.HP ---
History of Present Illness Primary Care Physician: UNKNOWN History of Present Illness: 62-year-old female with history of coronary artery disease, type 2 diabetes, CVA , prior [place] presented to the [place] ER overnight with complaints of chest pain. Nonspecific abdominal and chest pain started 1 week ago, she was noticed this pain upon awakening and would self treat with BenGay rubbed over her abdomen and chest. Starting 3 days ago she began to have this chest pain throughout the day and became unresponsive to BenGay. She took a total of 4 Nitrostat sublingually yesterday and added Nitropaste after that. When her daughter came to the house and heard the story she encouraged her mom to immediately visit the emergency room. She denies any current history of nausea vomiting or diarrhea. She denies any rashes or skin infections. She she has chronic focal deficits from previous CVA that affects her left hand and left leg but otherwise has no new neurological symptoms. Review of Systems All other systems reviewed negative except as stated in HPI [facility] - History History Provided By: Patient, Family Member - Medical History Medical History: Medical History (Last Updated 04/20/18 @ 19:17 by Tyra Garcia RN) Diabetes FH: CVA (cerebrovascular accident) Kidney disease Past heart attack - Tobacco History Smoking Status: Never smoker - Alcohol History How Often Do You Have a Drink Containing Alcohol: Never - Substance Use History Substance History: No History of Abuse Medications and Allergies Active Medications: Active Medications Apixaban (Eliquis) 5 mg PO BID [facility] Carvedilol (Coreg) 3.125 mg PO BID [facility] Enalaprilat (Vasotec Inj) 1.25 mg IV.PUSH ONCE ONE Stop: 04/21/18 16:09 Allergies Allergy/AdvReac Type Severity Reaction Status Date / Time ibuprofen Allergy Severe SWELLING Verified 10/07/17 15:15 aspirin AdvReac Intermediate UPSETS Verified 10/07/17 15:15 STOMACH Home Medications Medication Instructions Recorded Confirmed Type No Known Home Medications 04/20/18 04/20/18 History Exam Vital signs: Vital Signs 04/21/18 00:45 04/21/18 01:53 04/21/18 04:00 Temperature 97.5 F L 97.4 F L Pulse Rate 67 70 65 Respiratory Rate 20 18 Blood Pressure 135/95 H 152/70 H Pulse Oximetry 98 94 L 04/21/18 08:00 04/21/18 12:00 Temperature 98.3 F 98.7 F Pulse Rate 74 73 Respiratory Rate 20 20 Blood Pressure 180/93 H 189/97 H Pulse Oximetry 99 97 Intake & Output 04/20/18 04/21/18 04/21/18 18:59 06:59 18:59 Intake Total 0 / 0 Balance 0 / 0 Weight 68.9 kg Intake: Oral 0 / 0 Other: # Voids 4 Narrative: GENERAL: AAOx3, no acute distress, adequate nutrition SKIN: Warm and dry, no rashes. HEAD: Atraumatic. Normocephalic. EYES: Pupils equal, round, reactive to light. No scleral icterus. No injection or drainage. ENT: No nasal bleeding or discharge. Moist mucous membranes. Nonerythematous oropharynx. NECK: Trachea midline. No JVD. Thyroid size within normal limits. CARDIOVASCULAR: Regular rate and rhythm. No murmur, no gallops, no rubs. RESPIRATORY: Clear and equal to auscultation bilaterally. No crackles, no wheezes. No accessory muscle use. GASTROINTESTINAL: Abdomen soft, non-tender, nondistended, normal active bowel sounds. Hepatic and splenic margins not palpable. MUSCULOSKELETAL: Extremities without clubbing or cyanosis. No obvious deformities. No edema. NEUROLOGICAL: Awake and alert. No obvious cranial nerve deficits. Mild left upper and lower extremity weakness, still ambulatory. No focal deficits. Five out of 5 muscle strength in the arms and legs. Normal speech. PSYCHIATRIC: Appropriate mood and affect; insight and judgment normal. Results - Labs Labs: Laboratory Results - last 24 hr 04/21/18 04/21/18 04/21/18 02:08 11:45 13:11 POC Glucose 100 Total Creatine Kinase 341 H CK-MB (CK-2) 1.6 CK-MB (CK-2) % 0.5 Troponin I 0.05 0.05 Caprini VTE Risk Assessment Caprini VTE Risk Assessment: Moderate/High Risk (score >= 2) Caprini Risk Assessment Model: Point Value = 1 Point Value = 2 Point Value = 3 Point Value = 5 Age 41-60 Minor surgery BMI > 25 kg/m2 Swollen legs Varicose veins or History of unexplained or recurrent spontaneous Oral contraceptives or hormone replacement Sepsis (< 1 month) Serious lung disease, including pneumonia (< 1 month) Abnormal pulmonary function Acute myocardial infarction Congestive heart failure (< 1 month) History of inflammatory bowel disease Medical patient at bed rest Age 61-74 Arthroscopic surgery Major open surgery (> 45 min) Laparoscopic surgery (> 45 min) Malignancy Confined to bed (> 72 hours) Immobilizing plaster cast Central venous access Age >= 75 History of VTE Family history of VTE Factor V Leiden Prothrombin [id number] Lupus anticoagulant Anticardiolipin antibodies Elevated serum homocysteine Heparin-induced thrombocytopenia Other congenital or acquired thrombophilia Stroke (< 1 month) Elective arthroplasty Hip, pelvis, or leg fracture Acute spinal cord injury (< 1 month) Prophylaxis Regimen: Total Risk Factor Score Risk Level Prophylaxis Regimen 0-1 Low Early ambulation 2 Moderate Order ONE of the following: *Sequential Compression Device (SCD) *Heparin 5000 units SQ BID 3-4 Higher Order ONE of the following medications: *Heparin 5000 units SQ TID *Enoxaparin/Lovenox 40 mg SQ daily (WT < 150 kg, CrCl > 30 mL/min) *Enoxaparin/Lovenox 30 mg SQ daily (WT < 150 kg, CrCl > 10-29 mL/min) *Enoxaparin/Lovenox 30 mg SQ BID (WT < 150 kg, CrCl > 30 mL/min) AND/OR *Sequential Compression Device (SCD) 5 or more Highest Order ONE of the following medications: *Heparin 5000 units SQ TID (Preferred with Epidurals) *Enoxaparin/Lovenox 40 mg SQ daily (WT < 150 kg, CrCl > 30 mL/min) *Enoxaparin/Lovenox 30 mg SQ daily (WT < 150 kg, CrCl > 10-29 mL/min) *Enoxaparin/Lovenox 30 mg SQ BID (WT < 150 kg, CrCl > 30 mL/min) AND *Sequential Compression Device (SCD) Assessment and Plan - Plan Chest pain Patient is fairly high risk due to previous SD, CVA, CHF In general she is not a candidate for intervention due to creatinine above 4 Patient is scheduled for stress test Appreciate cardiology consult Elevated BNP BNP is 1800s on admission 2D echocardiogram ordered for current cardiac function Chronic kidney insufficiency Baseline creatinine level is above 4, patient not a candidate for interventional cardiac procedure Type 2 diabetes Sliding scale insulin coverage with Accu-Cheks Diabetic diet DVT prophylaxis Continue Eliquis
[2018-04-21] MEDS ORDERED: Dextrose 50% in Water 50 ML Vial IV.PUSH PRN (21:03)
[2018-04-22 07:08] LABS: Potassium 3.5 meq/L (3.5-5.1)
[2018-04-22 07:11] LABS: Calcium 9.6 mg/dL (8.5-10.1); Carbon Dioxide 30.1 meq/L (21.0-32.0)
[2018-04-22 07:29] LABS: Baso % (Auto) 0.3 % (0.0-2.0); Eos # (Auto) 0.1 th/mm3 (0.0-0.4); Eos % (Auto) 2.8 % (0.0-4.0); Hematocrit 27.7 % (35.0-46.0); Lymph # (Auto) 0.9 th/mm3 (1.0-4.8); Lymph % (Auto) 20.5 % (9.0-44.0); Mean Corpuscular HGB Conc 32.5 % (32.0-36.0); Mean Corpuscular Hemoglobin 29.3 pg (27.0-34.0); Mean Corpuscular Volume 90.2 fL (80.0-100.0); Mean Platelet Volume 9.9 fL (7.0-11.0); Mono # (Auto) 0.5 th/mm3 (0.0-0.9); Mono % (Auto) 11.8 % (0.0-8.0); Neut % (Auto) 64.6 % (16.0-70.0); Platelet Count 137 th/mm3 (150-450); Red Blood Count 3.07 mil/mm3 (4.00-5.30); Red Cell Distribution Width 13.7 % (11.6-17.2); White Blood Count 4.5 th/mm3 (4.0-11.0)
[2018-04-22] MEDS: Insulin NovoLOG Aspart Correctional Sugar Inj SQ SCH ×2 (08:43→12:09)
--- NOTE | 2018-04-22 08:54 | P.PNCA ---
<Shanice Najera - Last Filed: 04/22/18 08:49> Subjective Interval history: reports 8/10 chest pain overnight, felt briefly. No sob or palpitations. Physical Exam Vital signs: Vital Signs 04/21/18 12:00 04/21/18 16:00 04/21/18 20:00 Temperature 98.7 F 98.0 F 97.9 F Pulse Rate 73 80 72 Respiratory Rate 20 17 20 Blood Pressure 189/97 H 213/110 H 210/95 H Pulse Oximetry 97 99 96 04/22/18 00:00 04/22/18 04:00 04/22/18 08:00 Temperature 97.9 F 97.5 F L 96.5 F L Pulse Rate 72 75 66 Respiratory Rate 20 20 18 Blood Pressure 202/95 H 199/90 H 183/86 H Pulse Oximetry 97 97 98 Intake & Output 04/21/18 04/22/18 04/22/18 18:59 06:59 18:59 Intake Total 0 / 0 0 / 0 Balance 0 / 0 0 / 0 Weight 67.7 kg Intake: Oral 0 / 0 0 / 0 Other: # Voids 4 7 # Incontinent Bowel Movements 0 Assessment and Plan - Assessment (1) Chest pain Code(s): R07.9 - Chest pain, unspecified Status: Acute - Plan 62-year-old female with past medical history of CVA, diastolic CHF, CKD 4, CAD, who presented for chest pain. The patient is a very poor historian. She states that she has had a cardiac catheterization before, but cannot say if any intervention was done and cannot say when the catheterization was done. She states that she takes nitroglycerin often for chest pain and it seems that this may be a chronic issue, however she cannot recall how often in a week or in a month she needs to take nitroglycerin. She has a loading inspector in [place] that she was supposed to see this week. Regardless, the patient states that she has been having chest pain and shortness of breath for the past 2 days. She states that she has taken nitro 6 times yesterday which helped the chest pain. Her EKGs show nonspecific lateral T-wave changes, similar to previous EKG from October. Troponin 0.04, 0.05, 0.05. Creatinine 4.8, has CKD 4 at baseline. Chest pain with a possible history of CAD: EKG with chronic lateral ischemic changes, unchanged. Troponins within normal limits. Will check Lexiscan for further evaluation, however unless markedly abnormal findings, the patient is a poor interventional candidate with advanced renal disease. If Lexiscan normal or with mild ischemic disease, will likely recommend medical management and follow-up with her personal loading inspector as outpatient. HTN- SBP elevated. add lisinopril 20mg along with coreg 3.125mg BID will sign off, contact Dr. Rodgers with questions. Discussed Condition With: Dr. Rodgers <Connor Rodgers - Last Filed: 04/22/18 08:55> Physical Exam Vital signs: Vital Signs 04/21/18 12:00 04/21/18 16:00 04/21/18 20:00 Temperature 98.7 F 98.0 F 97.9 F Pulse Rate 73 80 72 Respiratory Rate 20 17 20 Blood Pressure 189/97 H 213/110 H 210/95 H Pulse Oximetry 97 99 96 04/22/18 00:00 04/22/18 04:00 04/22/18 08:00 Temperature 97.9 F 97.5 F L 96.5 F L Pulse Rate 72 75 66 Respiratory Rate 20 20 18 Blood Pressure 202/95 H 199/90 H 183/86 H Pulse Oximetry 97 97 98 Intake & Output 04/21/18 04/22/18 04/22/18 18:59 06:59 18:59 Intake Total 0 / 0 0 / 0 Balance 0 / 0 0 / 0 Weight 67.7 kg Intake: Oral 0 / 0 0 / 0 Other: # Voids 4 7 # Incontinent Bowel Movements 0 Assessment and Plan - Assessment (1) Chest pain Code(s): R07.9 - Chest pain, unspecified Status: Acute - Attending Attestation call if lexiscan abnormal agree with above
[2018-04-22] MEDS ORDERED: amLODIPine 10 MG Tablet PO SCH (09:00)
[2018-04-22] MEDS ORDERED: Regadenoson Inj 0.4 MG/5 ML Syringe IV.PUSH ONE (10:24)
--- NOTE | 2018-04-22 11:38 | NM ---
EXAM DATE: 04/22/2018 11:31 AM EDT AGE/SEX: 62 years / Female INDICATIONS:Angina. . Chest pain. CLINICAL DATA: This is the patient's initial encounter. Patient reports that signs and symptoms have been present for 1 day and indicates a pain score of 0/10. MEDICAL/SURGICAL HISTORY: Congestive heart failure. Diabetes mellitus type II. Cerebrovascula r disease. None. COMPARISON: No prior exams available for comparison. DOSE: 8.1 mCi Tc 99m Myoview at rest 26.3 mCi [id number] at stress 0.4 mg Lexiscan STRESS SYMPTOMS: Short of breath and vomiting. EJECTION FRACTION: >70 % TECHNIQUE: The patient underwent pharmacologic stress with infusion of prescribed dose. Continuous ECG tracing was monitored during stress. Gated SPECT imaging was performed after stress and conventi onal SPECT imaging was performed at rest. The examination was performed on a SPECT/CT scanner, both attenuation and non-corrected datasets were reviewed. FINDINGS: Distribution: The maximum perfused segment at stress is in the inferior wall. Perfusion Study: The pattern of perfusion at stress is within normal limits. Gated Study: There are intact wall motion and wall thickening without hypokinetic or dyskinetic segm ents. The ejection fraction is calculated at >70%. RISK CATEGORY: 1 - Low Risk. CONCLUSION: No reversible perfusion defects. No focal wall motion abnormalities. Electronically signed by: Bradley Russell MD 04/22/2018 11:37 AM EDT
[2018-04-22] MEDS ORDERED: hydrALAZINE 25 MG Tablet PO ONE (12:20)
--- NOTE | 2018-04-22 14:08 | P.DS ---
Date of admission: 04/21/18 00:40 Primary care physician: UNKNOWN Brief History from admission: 62-year-old female with history of coronary artery disease, type 2 diabetes, CVA , prior [place] presented to the [place] ER overnight with complaints of chest pain. Nonspecific abdominal and chest pain started 1 week ago, she was noticed this pain upon awakening and would self treat with BenGay rubbed over her abdomen and chest. Starting 3 days ago she began to have this chest pain throughout the day and became unresponsive to BenGay. She took a total of 4 Nitrostat sublingually yesterday and added Nitropaste after that. When her daughter came to the house and heard the story she encouraged her mom to immediately visit the emergency room. She denies any current history of nausea vomiting or diarrhea. She denies any rashes or skin infections. She she has chronic focal deficits from previous CVA that affects her left hand and left leg but otherwise has no new neurological symptoms. DS: Medications - Discharge Medications Prescriptions: omeprazole 20 mg PO DAILY 30 Days #30 cap DS: Summary Hospital Course: 62-year-old female admitted for chest pain. Cardiology evaluated patient and recommended Lexiscan stress test. Patient showed no defects on stress test and is therefore appropriate for discharge. She will be treated for possibility of gastroesophageal reflux as most common alternate cause. Follow-up with primary care. Patient requested a new replacement prescription for her CPAP at home. - Time Spent with Patient Total time spent providing and/or coordinating discharge services: Less than 30 minutes Exam Vital signs: Vital Signs 04/21/18 16:00 04/21/18 20:00 04/22/18 00:00 Temperature 98.0 F 97.9 F 97.9 F Pulse Rate 80 72 72 Respiratory Rate 17 20 20 Blood Pressure 213/110 H 210/95 H 202/95 H Pulse Oximetry 99 96 97 04/22/18 04:00 04/22/18 08:00 04/22/18 12:00 Temperature 97.5 F L 96.5 F L 97.5 F L Pulse Rate 75 65 78 Respiratory Rate 20 18 18 Blood Pressure 199/90 H 183/86 H 213/86 H Pulse Oximetry 97 98 99 Intake & Output 04/21/18 04/22/18 04/22/18 18:59 06:59 18:59 Intake Total 0 / 0 0 / 0 Balance 0 / 0 0 / 0 Weight 67.7 kg Intake: Oral 0 / 0 0 / 0 Other: # Voids 4 7 # Incontinent Bowel Movements 0 Weight On Admission 67.7 kg Results Procedures completed during hospitalization: none Labs on day of discharge: Labs from last 24 hours 04/22/18 04/22/18 04/22/18 12:02 07:40 06:18 CBC w Diff WBC RBC Hgb Hct MCV MCH MCHC RDW Plt Count MPV Neut % (Auto) Lymph % (Auto) [place] % (Auto) Eos % (Auto) Baso % (Auto) Neut # (Auto) Lymph # (Auto) [place] # (Auto) Eos # (Auto) Baso # (Auto) WBC Differential Differential Comment Sodium 142 Potassium 3.5 Chloride 104 Carbon Dioxide 30.1 Anion Gap 8 BUN 80 H Creatinine 4.20 H Estimated GFR 13 L POC Glucose 156 H 130 H Random Glucose 110 H D Calcium 9.6 Troponin I 04/22/18 04/21/18 04/21/18 06:18 21:10 17:50 CBC w Diff Auto diff final WBC 4.5 RBC 3.07 L Hgb 9.0 L Hct 27.7 L MCV 90.2 MCH 29.3 MCHC 32.5 RDW 13.7 Plt Count 137 L MPV 9.9 Neut % (Auto) 64.6 Lymph % (Auto) 20.5 [place] % (Auto) 11.8 H Eos % (Auto) 2.8 Baso % (Auto) 0.3 Neut # (Auto) 3.0 Lymph # (Auto) 0.9 L [place] # (Auto) 0.5 Eos # (Auto) 0.1 Baso # (Auto) 0.0 WBC Differential . Differential Comment . Sodium Potassium Chloride Carbon Dioxide Anion Gap BUN Creatinine Estimated GFR POC Glucose 204 H Random Glucose Calcium Troponin I 0.04 - Impressions ITS Impressions Myocardial Perfusion Scan Nuc Med 04/22/18 08:00 CONCLUSION: No reversible perfusion defects. No focal wall motion abnormalities. Discharge Plan - Discharge Disposition Patient Disposition: 01 Discharge Home - Discharge Condition Condition: Good - Discharge Order Discharge Orders: Discharge Order (Routine); Ordered 04/22/18 Ordered By: Lamont Apple - Physicians Team Primary Care Provider: UNKNOWN, Attending Provider: Lamont Apple Other Providers: Connor Rodgers MD - Rxs /Orders / Referrals /Forms Prescriptions: New omeprazole 20 mg Capsule,Delayed Release(Dr/Ec) 20 mg PO DAILY 30 Days Qty: 30 RF: 0 Continue apixaban 5 mg PO BID apixaban [Eliquis] 2.5 mg Tablet 2.5 mg PO BID bumetanide 1 mg Tablet 1 mg PO BID carvedilol 3.125 mg PO BID carvedilol 12.5 mg Tablet 12.5 mg PO BID hydralazine 25 mg Tablet 25 mg PO BID insulin glargine 100 unit/mL Solution 25 unit SUB-Q AC BREAKFAST levothyroxine 112 mcg Capsule 112 mcg PO DAILY metolazone 5 mg Tablet 5 mg PO QWEEK nitroglycerin 0.4 mg/hr Patch 24 Hour pravastatin 80 mg Tablet 80 mg PO HS No Action calcitriol 0.5 mcg Capsule 0.5 mcg PO DAILY vit D3-vit [id number] Tablet Referrals: UNKNOWN, [Primary Care Provider] - See Instructions
--- NOTE | 2018-04-22 16:46 | ECG ---
Date Performed: 04/21/2018 Time Performed: 11:48:09 PTAGE: 62 years EKG: Ectopic atrial rhythm Atrial abnormality LVH with secondary ST-T change. When compared to p revious tracing, QRS voltage is more Prominant, and STT changes are more prominant. ABNORMAL ECG PREVIOUS TRACING : 09/07/2017 15.35 DOCTOR: Yousif Gill Interpretating Date/Time 04/22/2018 16:45:01
--- NOTE | 2018-04-22 16:46 | ECG ---
Date Performed: 04/21/2018 Time Performed: 17:32:27 PTAGE: 62 years EKG: Ectopic atrial rhythm LVH with secondary ST-T wave change. Since previous tracing, no signi ficant change noted ABNORMAL ECG PREVIOUS TRACING : 04/21/2018 11.48 DOCTOR: Yousif Gill Interpretating Date/Time 04/22/2018 16:46:24
--- NOTE | 2018-04-22 17:28 | ECHRPT ---
Indication: cardiomyopaythy CONCLUSIONS The left ventricular systolic function is hyperdynamic with an estimated ejection fraction of 75% Norrmal left ventricular size. Severe concentric left ventricular hypertrophy. No regional wall motion abnormalities are present. The left atrial size is severely dilated. The right atrial size is mildly dilated. The interatrial septum bowed from left to right, consistent with increased left atrial pressure. Severe mitral annular calcification. [id number] mitral valve regurgitation. Trace aortic valve regurgitation. There is severe tricuspid regurgitation. The estimated pulmonary arterial pressure is 84.6 mmHg. Trivial pulmonary valve regurgitation. The inferior vena cava (IVC) is normal in size. There is greater than 50% respiratory change in dimension of the inferior vena cava (normal). There is trace pericardial effusion. BP: / HR: Rhythm: Sinus MEASUREMENTS (Male / Female) Normal Values Technical Quality:Good 2D ECHO LV Diastolic Diameter PLAX 5.1 cm 4.2 - 5.9 / 3.9 - 5.3 cm LV Systolic Diameter PLAX 3.3 cm IVS Diastolic Thickness 1.4 cm 0.6 - 1.0 / 0.6 - 0.9 cm LVPW Diastolic Thickness 1.4 cm 0.6 - 1.0 / 0.6 - 0.9 cm LV Relative Wall Thickness 0.6 LVOT Diameter 1.5 cm LA Systolic Diameter LX 4.8 cm 3.0 - 4.0 / 2.7 - 3.8 cm DOPPLER TR Peak Velocity 432.0 cm/s TR Peak Gradient 74.6 mmHg Right Atrial Pressure 10.0 mmHg Pulmonary Artery Systolic Pressu 84.6 mmHg Right Ventricular Systolic Press 84.6 mmHg PV Peak Velocity 85.5 cm/s PV Peak Gradient 2.9 mmHg FINDINGS LEFT VENTRICLE The left ventricular systolic function is hyperdynamic with an estimated ejection fraction of 75% Norrmal left ventricular size. Severe concentric left ventricular hypertrophy. No regional wall motion abnormalities are present. RIGHT VENTRICLE Normal right ventricular size and systolic function. LEFT ATRIUM The left atrial size is severely dilated. RIGHT ATRIUM The right atrial size is mildly dilated. ATRIAL SEPTUM The interatrial septum bowed from left to right, consistent with increased left atrial pressure. AORTA The aortic root and proximal ascending aorta are normal in size on limited imaging. MITRAL VALVE Severe mitral annular calcification. [id number] mitral valve regurgitation. AORTIC VALVE Trileaflet aortic valve. Trace aortic valve regurgitation. TRICUSPID VALVE Structurally normal tricuspid valve. There is severe tricuspid regurgitation. The estimated pulmonary arterial pressure is 84.6 mmHg. PULMONARY VALVE Trivial pulmonary valve regurgitation. VESSELS The inferior vena cava (IVC) is normal in size. There is greater than 50% respiratory change in dimension of the inferior vena cava (normal). PERICARDIUM There is trace pericardial effusion. Rick Lund MD (Electronically Signed) Final Date:22 April 2018 17:26
== END 2018-04-22 17:42 | disposition home or self-care (01) ==
LOC: PH3 04-21 00:30 → PHEDDLT 04-21 00:30 → UNDODISOB 04-22 15:33
PROVIDERS: ADMIT Family Medicine; ATTEND Family Medicine